=== PATIENT | male | born 1945 | race Caucasian/White ===

== ENCOUNTER → 2018-11-24 08:00 | Outpatient (CLI) | payer MEDICARE, SELFPAY ==
[2018-11-24] VITALS (9 sets, daily range): BP systolic 141–150; BP diastolic 57–86; PULSE 73–79; RESP 16; TEMP 35.7–37; O2SAT 98; BMI 38.2
[2018-11-24] MEDS: Furosemide 20 MG/2 ML VIAL IV (12:51)
== END ==
PROVIDERS: Family Provider Family Medicine; PCP Family Medicine; Referring Provider Nurse Practitioner Adult Health; Visit Provider Nurse Practitioner Adult Health
DX: D64.9 Anemia, unspecified (principal)
CPT/HCPCS: 36430; 86850; 86900; 86920; 86922; J7040; P9016; A4216; J1940

== ENCOUNTER 2019-02-02 22:03 | Emergency (ER) | payer MEDICARE, SELFPAY ==
[2018-11-24 08:26] VITALS: BMI 38.2
[2019-02-02 22:05] VITALS: BP 147/85; PULSE 84; RESP 18; TEMP 37.1; O2SAT 95; BMI 38.5
--- NOTE | 2019-02-02 22:15 | EKG12_ITS ---
Test Reason : WEAKNESS Blood Pressure : / mmHG Vent. Rate : 078 BPM Atrial Rate : 078 BPM P-R Int : 000 ms QRS Dur : 086 ms QT Int : 410 ms P-R-T Axes : 000 -28 012 degrees QTc Int : 467 ms Sinus Rhythm Abnormal ECG Confirmed by REMY DEL VALLE, JENNIFER ([id number]), news video editor ALTON ADLER ([id number]) on 02/04/2019 1:29:38 PM Referred By: MARIZA Confirmed By:BENIGNO ALBERTO MD
--- NOTE | 2019-02-02 22:18 | ED.DCSUM_ITS ---
History of Present Illness Chief Complaint: Weakness Informant: Patient, Family, SNF Onset: Today Context: Sudden Onset Timing: Intermittent Quality: Stuttering, shortness of breath, RUE and bilateral lower extremity edema Location: Respiratory and extremity Current Severity: Mild Maximum Severity: Mild Worsened by: History of heart failure Relieved by: Nothing Associated Symptoms: Stuttering and inability to walk from restroom to his side of the room Narrative: Patient is an elderly male who presents by ambulance for evaluation of right upper extremity, right and left lower extremity edema, stuttering, inability to ambulate from restroom to his bedroom. His roommate called the nurses station. They sent him in for evaluation for stroke. Son states the last time he had stuttering for swelling of his extremities he was diagnosed with congestive heart failure. There is no history of CVA. He denies headache, visual, ocular auditory symptoms. He denies chest pain. He denies orthopnea. He denies nausea, vomiting diarrhea. He denies dysuria, frequency, urgency or hematuria. Prior similar symptoms: Yes - The Recent Illness/Hospitalization: No - Past Medical History (1) History of heart failure Status: Acute (2) Venous insufficiency (chronic) (peripheral) Status: Acute (3) Type 2 diabetes mellitus with diabetic polyneuropathy Status: Chronic (4) Type 2 diabetes mellitus with foot ulcer Status: Resolved Past Medical History - Allergies and Home Meds Allergies/Adverse Reactions: Allergies diclofenac [From Voltaren] Adverse Reaction (Verified 12/02/16 14:59) Nausea/Vom/Diarrhea Macrolide Antibiotics Adverse Reaction (Verified 12/02/16 14:21) Chest tightness Primary Care Physician: Filipe Simmons MD [Primary Care Provider] - Prior records reviewed: Yes Surgical History: noncontributory, appendectomy, herniorrhaphy Lives: Retirement Smoking Status: Former smoker Alcohol: None Drugs: None Review of Systems General: Reports: Malaise. Denies: Chills, Fever, Sweats Eyes: Denies: Visual changes - bilaterally, Blurred Vision - bilaterally, Diplopia ENT: Denies: Bilateral ear pain, Rhinorrhea, Sore throat Cardiovascular: Denies: Chest pain, Palpitations, Heart racing Respiratory: Denies: Dyspnea, Cough, Sputum, Dyspnea on exertion Gastrointestinal: Denies: Abdominal pain, Nausea, Vomiting, Diarrhea, Melena, Hematochezia Genitourinary: Denies: Dysuria, Hematuria, Frequency Musculoskeletal: Reports: Swelling. Denies: Myalgias, Arthralgias, Neck pain, Extremity Pain Skin: Denies: Rash, Wounds Neurological: Denies: Headache, Weakness, Parasthesia Endocrine: Denies: Polyuria, Polydipsia Hematologic: Denies: Easy bruising, Easy bleeding Allergy: Denies: Uticaria, Swelling of the mouth, Swelling of the tongue Physical Exam Vital Signs/Narrative: Vital Signs Temp Pulse Resp BP Pulse Ox 02/02/19 22:05 98.7 F 84 18 147/85 H 95 Inital Vital Signs reviewed: Yes General: Well nourished, Well developed, Obese, No Acute Distress Head: Normocephalic, Atraumatic Eyes: Perrl, EOMI. Negative for: Pale conjunctiva, Scleral icterus ENT: Moist mucous membranes, No rhinorrhea, TM's clear Neck: Supple, Nontender, No lymphadenopathy, No JVD Cardiovascular: Regular rate, Regular rhythm, No murmurs, Normal S1, Normal S2 Respiratory: No distress, Chest nontender, Rales - Mild rales left base Abdomen: Soft, Nontender, Nondistended, Normal bowel sounds Rectal: Deferred Back: Nontender, Normal Inspection. Negative for: CVA tenderness Extremities: Nontender, Edema - 1+ pitting lower extremity. Negative for: No edema Skin: Normal color, No rash Neurological: Alert, Oriented x3, Cranial nerves II-XII grossly intact, Normal Strength, Normal Sensation, Normal DTR Psychological: Normal affect Diagnostic/Tx/Re-eval - EKG Initial EKG Interpretation: Sinus Rhythm - This rhythm with a ventricular rate of 78. CO interval is approximately 150 ms. QRS duration is 86 ms. QT duration is 110 ms. [place] is normal. Decreased anterior force. The EKG is essentially unchanged from December 04, 2010. - Medical Decision Making Patient's NIH is 0. Stuttering is not a symptom of stroke. With history of congestive heart failure rales left base will obtain chest x-ray to evaluate for congestive heart failure. Troponin was obtained to assess for cardiac ischemia as well as EKG. CBC was obtained to assess for anemia and basic medical panel to assess for electrolytes and renal function. Since case was discussed with Dr. Filipe Simmons at 2250. He was informed the patient's history, physical and results of work-up. [facility] Disposition - Plan for ED Patient: Disposition: Home or Assisted Living Diagnosis: Dependent edema, Stuttering, Venous insufficiency (chronic) (peripheral), Localized edema Referrals: Filipe Simmons MD [Primary Care Provider] - As Needed
[2019-02-02 22:24] LABS: Absolute Lymphocyte Count 1.94 X10^3/uL (0.83-4.51); Absolute Neutrophil Count 5.9 X10^3/uL (2.0-7.7); Basophil# 0.04 X10^3/uL; Basophil% 0.4 % (0-1); Eosinophil# 0.34 X10^3/uL; Eosinophils% 3.8 % (0-5); Hematocrit 31.4 % (40-54); Hemoglobin 9.5 g/dL (13.0-16.5); Lymphocyte # 1.94 X10^3/ul (4.0); Lymphocyte % 21.8 % (19-41); Mean Corp Hgb Conc 30.3 g/dL (32-36); Mean Corpuscular Hgb 24.1 pg (27.0-32.0); Mean Corpuscular Volume 79.7 fL (80-94); Mean Platelet Vol. 10.2 fl (6.2-12.0); Monocyte# 0.69 X10^3/uL; Monocyte% 7.7 % (0-10); NRBC Flagged by Analyzer 0 % (0-5); Neutrophil # 5.88 X10^3/uL (2.7-7.7); Neutrophil % 66.1 % (47-70); Platelet Count 227 K/mm3 (150-450); RBC Distribution Width CV 19.1 % (11.6-14.6); RBC Distribution Width SD 55.7 fl (35.1-43.9); Red Blood Count 3.94 M/mm3 (4.6-6.2); White Blood Count 8.9 K/mm3 (4.4-11.0)
--- NOTE | 2019-02-02 22:35 | RAD_ITS ---
STUDY: X-RAY CHEST REASON FOR EXAM: Male, 73 years old. Edema, shortness of breath TECHNIQUE: Frontal and lateral views COMPARISON: None. FINDINGS: The lungs are clear and expanded. There is no demonstrated pleural abnormality. Cardiomegaly. Normal mediastinum and ana. Slightly prominent central pulmonary arteries. Normal visualized aortic arch and descending thoracic aorta. Degenerative changes at the thoracic spine. Normal visualized ribs, clavicles, and shoulders. There is no demonstrated abnormality of the visualized soft tissue structures of the upper abdomen. RAD/Chest PA and Lateral IMPRESSION: Cardiomegaly and slight central pulmonary vascular prominence with Electronically Signed: Иван Cabrera DO at 22:49 EDT Tel [phone], Service support ,
[2019-02-02 22:36] LABS: BUN 20 mg/dL (7-18); Creatinine, Serum 1.28 mg/dL (0.70-1.30); EST Glomerular Filtration Rate 58 mL/min (>60); Estimated Creatinine Clearance 51.49 ml/min; Glucose 172 mg/dL (74-106)
[2019-02-02 22:37] LABS: Anion Gap 6 (5-15); BUN/Creat Ratio 15.6 RATIO (10-20); Calcium,Total 8.8 mg/dL (8.5-10.1); Chloride 102 mmol/L (98-107); Est Glom Filt Rate - Afr Amer 70 mL/min (>60); Potassium 4.2 mmol/L (3.5-5.1); Sodium Level 138 mmol/L (136-145)
--- NOTE | 2019-02-02 22:51 | ED.DCSUM_ITS ---
- ER Visit Summary Date of Service: 02/02/19 Chief Complaint: [] History of Present Illness: The patient is a 73 M [] Physical Examination: [] Test Results: [] Emergency Department Course and Treatment: [] Treatment Plan: [] Disposition: [] Impression: [] This note was generated with [employer] dictation software. It may contain incorrect words, spelling, and punctuation that were not noted in review of the chart prior to signing ED Disposition - Plan for ED Patient: Disposition: Home or Assisted Living Diagnosis: Dependent edema, Stuttering, Venous insufficiency (chronic) (peripheral), Localized edema Instructions: Lymphedema Referrals: Filipe Simmons MD [Primary Care Provider] - As Needed
[2019-02-02 23:11] LABS: BNP,B-Type NATRIURETIC PEPTIDE 66.8 pg/mL (0-100)
[2019-02-02 23:17] VITALS: BP 151/90; PULSE 79; RESP 22; O2SAT 94
--- NOTE | 2019-02-02 23:30 | ED.RN ---
SPOKE WITH LUZ AT [facility], GAVE UPDATED REPORT, PENDING SQU[facility] TRANSFER.
[2019-02-02 23:49] VITALS: BP 140/90
== END 2019-02-02 23:49 | disposition home or self-care (01) ==
PROVIDERS: Emergency Provider Emergency Medicine; Family Provider Family Medicine; PCP Family Medicine
DX: R60.0 Localized edema (principal); R47.82 Fluency disorder in conditions classified elsewhere; I87.2 Venous insufficiency (chronic) (peripheral); I50.9 Heart failure, unspecified; E11.42 Type 2 diabetes mellitus with diabetic polyneuropathy; Z79.4 Long term (current) use of insulin; Z79.84 Long term (current) use of oral hypoglycemic drugs; Z79.899 Other long term (current) drug therapy; Z87.891 Personal history of nicotine dependence
CPT/HCPCS: 71046; 80048; 83880; 84484; 85025; 93005; 99285; A4216

== ENCOUNTER 2019-02-03 12:56 | Inpatient (IN) | payer MEDICARE, MEDICAID, SELFPAY ==
[2019-02-02 22:05] VITALS: BMI 38.5
[2019-02-03] VITALS (12 sets, daily range): BP systolic 131–161; BP diastolic 75–95; PULSE 69–79; RESP 16–26; TEMP 36.3–36.9; O2SAT 93–97; BMI 38.9; BMI 37.7
--- NOTE | 2019-02-03 13:17 | EKG12_ITS ---
Test Reason : Blood Pressure : / mmHG Vent. Rate : 072 BPM Atrial Rate : 072 BPM P-R Int : 188 ms QRS Dur : 090 ms QT Int : 412 ms P-R-T Axes : 076 -22 024 degrees QTc Int : 451 ms Normal sinus rhythm Nonspecific T wave abnormality Abnormal ECG Confirmed by REMY DEL VALLE, JENNIFER ([id number]), editor managing newspaper ALTON ADLER ([id number]) on 02/04/2019 1:24:32 PM Referred By: MAI/LETI Confirmed By:BENIGNO ALBEROT MD
--- NOTE | 2019-02-03 13:17 | CT_ITS ---
STUDY: CT BRAIN WITHOUT CONTRAST REASON FOR EXAM: Male, 73 years old. LEFT SIDE FACIAL DROOP X2 DAYS -- HTN RADIATION DOSAGE (If Supplied By Facility): CTDIvol = ( 44.99 ) mGy, DLP = ( 829.85 ) mGycm TECHNIQUE: Transaxial CT imaging of the brain was performed without administration of intravenous contrast material. Individualized dose optimization techniques were used for this CT. COMPARISON: None. FINDINGS: There is cerebral atrophy with widening of the extra-axial spaces and ventricular dilatation. There are areas of decreased attenuation within the white matter tracts of the supratentorial brain, consistent with microvascular disease changes. There is no intracranial hemorrhage. There are no findings of an acute ischemic infarction. Normal soft tissue structures. Normal visualized paranasal sinuses. CT/Brain/Head without Contrast IMPRESSION: Chronic involutional changes of the brain. Electronically Signed: Janes Nunez MD at 14:37 EDT Tel , Service support ,
--- NOTE | 2019-02-03 13:35 | RAD_ITS ---
STUDY: X-RAY CHEST REASON FOR EXAM: Male, 73 years old. Chest pain. TECHNIQUE: Single AP portable view of the chest. COMPARISON: Comparison is made with prior study dated February 02, 2019. FINDINGS: EKG electrodes are seen. Minimal degree of left basilar atelectasis. There is no demonstrated pleural abnormality. There is mild cardiac enlargement. Normal mediastinum and ana. Normal visualized pulmonary arteries. Normal visualized aortic arch and descending thoracic aorta. There are diffuse degenerative changes of the visualized thoracic spine. Normal visualized ribs, clavicles, and shoulders. There is no demonstrated abnormality of the visualized soft tissue structures of the upper abdomen. RAD/Chest 1 View IMPRESSION: Cardiomegaly. Minimal degree of left basilar atelectasis. Electronically Signed: Enrique David, at 13:54 EDT , Service support ,
[2019-02-03 13:50] LABS: Absolute Lymphocyte Count 1.53 X10^3/uL (0.83-4.51); Absolute Neutrophil Count 5.6 X10^3/uL (2.0-7.7); Basophil# 0.03 X10^3/uL; Basophil% 0.4 % (0-1); Eosinophil# 0.24 X10^3/uL; Hematocrit 32.8 % (40-54); Lymphocyte # 1.53 X10^3/ul (4.0); Mean Corp Hgb Conc 30.5 g/dL (32-36); Mean Corpuscular Hgb 24.2 pg (27.0-32.0); Mean Corpuscular Volume 79.4 fL (80-94); Monocyte# 0.64 X10^3/uL; Monocyte% 7.9 % (0-10); NRBC Flagged by Analyzer 0 % (0-5); Neutrophil # 5.59 X10^3/uL (2.7-7.7); Neutrophil % 69.3 % (47-70); Platelet Count 230 K/mm3 (150-450); RBC Distribution Width CV 19.1 % (11.6-14.6); RBC Distribution Width SD 55.2 fl (35.1-43.9); Red Blood Count 4.13 M/mm3 (4.6-6.2); White Blood Count 8.1 K/mm3 (4.4-11.0)
--- NOTE | 2019-02-03 14:00 | CT_ITS ---
STUDY: CTA HEAD AND NECK WITH CONTRAST REASON FOR EXAM: Male, 73 years old. LEFT SIDE FACIAL DROOP X2 DAYS -- HTN RADIATION DOSAGE (If Supplied By Facility): CTDIvol = ( 30.6 ) mGy, DLP = ( 761.08 ) mGycm TECHNIQUE: CT angiography was performed with a multi-detector CT scanner. Data acquisition was obtained from the skull base through the vertex following intravenous administration of 100CC IV Isovue 370. MIP images were reconstructed from the axial data set. Post-processing of the angiographic images was performed, with multiplanar reformation and 3D reconstruction. Individualized dose optimization techniques were used for this CT. COMPARISON: No relevant priors. FINDINGS: Normal bilateral petrous carotid arteries. There is calcified plaque formation of the right cavernous carotid artery, without a cross-sectional luminal stenosis. There is calcified plaque formation of the left cavernous carotid artery, without a cross-sectional luminal stenosis. Normal right A1 segments of the anterior cerebral artery. Normal left A1 segments of the anterior cerebral artery. Normal intact anterior communicating artery (ACOM). Normal bilateral A2 segments of the anterior cerebral arteries. Normal right M1 and M2 segments of the middle cerebral arteries, with a normal M1 bifurcation. Normal left M1 and M2 segments of the middle cerebral arteries, with a normal M1 bifurcation. Normal bilateral vertebral arteries. Normal basilar artery with a normal basilar bifurcation. The visualized bilateral superior cerebellar (SCA) arteries are normal. Normal bilateral posterior cerebral arteries. AORTIC ARCH: Normal visualized aortic arch. RIGHT CAROTID ARTERIES: There is atherosclerotic tortuous elongation of the right common carotid artery. Normal right common carotid bulb. Normal origin of the right internal carotid (ICA) artery without a hemodynamically significant stenosis. There is atherosclerotic tortuous elongation of the cervical portion of the right internal carotid artery. Normal origin of the right external carotid artery (ECA). LEFT CAROTID ARTERIES: There is atherosclerotic tortuous elongation of the left common carotid artery. Normal left common carotid bulb. Normal origin of the left internal carotid (ICA) artery without a hemodynamically significant stenosis. There is atherosclerotic tortuous elongation of the cervical portion of the left internal carotid artery. Normal origin of the left external carotid artery (ECA). VERTEBRAL ARTERIES: Normal bilateral vertebral arteries. CT/CTA Head AND Neck W/ Contrast IMPRESSION: No occlusion or significant stenosis of the Head and neck vessels Electronically Signed: Janes Nunez MD at 15:20 EDT Tel , Service support ,
[2019-02-03 14:02] LABS: International Normalized Ratio 1.1; Prothrombin Time (Protime)PT. 14.4 SECONDS (11.7-14.9)
[2019-02-03 14:03] LABS: Partial Thromboplast Time 29.6 Seconds (24.1-36.2)
[2019-02-03 14:09] LABS: Anion Gap 8 (5-15); BUN 19 mg/dL (7-18); Chloride 103 mmol/L (98-107); Creatinine, Serum 1.19 mg/dL (0.70-1.30); EST Glomerular Filtration Rate 63 mL/min (>60); Est Glom Filt Rate - Afr Amer 76 mL/min (>60); Estimated Creatinine Clearance 55.38 ml/min; Glucose 123 mg/dL (74-106); Sodium Level 141 mmol/L (136-145)
[2019-02-03] MEDS: 0.9% Normal Saline 1,000 ML 100 ML IV (14:31)
--- NOTE | 2019-02-03 15:28 | ED.DCSUM_ITS ---
- ER Visit Summary Date of Service: 02/03/19 Chief Complaint: [Slurred speech and difficulty ambulating] History of Present Illness: The patient is a 73 M [resents to the emergency department complaint of slurred speech that started around 8:30 PM last evening. Patient apparently had a hard time getting out of the bathroom last evening as well. He was brought to the emergency department and evaluated and was not felt to be a stroke as it was felt patient had more of a stuttering issue. She was seen by primary care today and referred back to the emergency department for left-sided facial droop as well as slurred speech and continued weakness. She describes more of a generalized weakness in his legs. He denies any chest pain or shortness of breath. He denies any abdominal pain or back pain. He denies any headache. Patient does have history of coronary artery disease, diabetes, hypertension, and obstructive sleep apnea.] Physical Examination: [HEENT-PERRLA, EOMI. Cranial nerves II through XII grossly intact. TMs clear. Mucous membranes moist. No adenopathy. Cardiovascular-regular rate and rhythm without murmur or ectopy Lungs-clear to auscultation, chest wall stable without crepitus or subcu emphysema Abdomen-normoactive bowel sounds, soft, nontender, no rebound or rigidity, no peritoneal signs. Neuro exam-she had an NIH stroke scale of 3. Patient had a very subtle left- sided facial droop as well as some mild slurred speech and very subtle weakness of the right leg compared to the right which is unclear if patient has some more chronic symptoms. Patient has chronic pain in his right shoulder and unable to move the right arm as well as the left arm. Extremities-intact ?4, normal range of motion, normal pulses, atraumatic] Test Results: [CT scan of the brain without contrast showed chronic involutional changes otherwise nothing acute. EKG obtained arrival shows sinus rhythm with a ventricular rate of 72 bpm with some nonspecific ST changes. CBC with differential was unremarkable. Chemistries unremarkable. Troponin is less than 0.015. Chest x-ray showed some cardiomegaly and left basilar atelectasis. CTA of the head and neck showed no significant occlusions.] Emergency Department Course and Treatment: [She is not a thrombolytic candidate given low NIH and given prolonged time from symptom onset.] Treatment Plan: [Admit for further work-up of stroke] Disposition: [Admit] Impression: [CVA] This note was generated with [employer] dictation software. It may contain incorrect words, spelling, and punctuation that were not noted in review of the chart prior to signing ED Disposition - Plan for ED Patient: Referrals: Filipe Simmons MD [Primary Care Provider] -
--- NOTE | 2019-02-03 16:40 | HP.PCM_ITS ---
Problem List (1) Congestive heart failure (CHF) Status: Chronic (2) Benign prostatic hyperplasia Status: Chronic (3) Hyperlipidemia Status: Chronic (4) Hypertension Status: Chronic (5) Type 2 diabetes mellitus Status: Chronic (6) Venous insufficiency (chronic) (peripheral) Status: Chronic (7) Type 2 diabetes mellitus with diabetic polyneuropathy Status: Chronic History of Present Illness Date of Admission: 02/03/19 Chief Complaint: Slurred speech, difficulty ambulating. The patient is a 73 year old M with past medical history as mentioned above presented to the emergency room from the long-term because of slurred speech and weakness. Symptoms started last night around 8 PM. Nursing staff at long-term noticed that patient is having difficulty getting the words out and his speech was slurred. He had difficulty ambulating and get out from the bathroom last evening and this morning as well. Last night, he was brought to the emergency department was evaluated and felt that stroke is unlikely diagnosis and patient was sent back to long-term. Today, patient was seen by his PCP at the long-term and he was sent back to ER for slurred speech and questionable left-sided facial droop as well as weakness which is nonfocal. The patient was not able to provide any detailed history. His son who is the power of real estate associate attorney mentioned that he was called last night by the long-term and he was informed that his dad is being transferred to the hospital. Patient had a history of type 2 diabetes mellitus and he has been on glipizide, metformin and sliding scale and his sugar has been under fair control. His hemoglobin A1c was 9.6% 2 years ago. He has history of hypertension and he has been on Coreg, lisinopril and Aldactone and his blood pressure has been stable. He has history of chronic CHF unspecified type with chronic bilateral leg edema and he has been on diuretics, beta-blockers and NAWAF inhibitors. In the emergency department, his NIH stroke scale was 3. He was not a candidate for TPA because symptoms started yesterday evening. His routine blood work was remarkable for hemoglobin of 10 g/dL, otherwise normal. EKG revealed normal sinus rhythm without evidence of acute ischemic changes or cardiac arrhythmias. Troponin was negative. Chest x-ray showed cardiomegaly, no acute findings. CTA of the head and neck showed no significant vascular disease, occlusion or stenosis of the head and neck vessels. He is being admitted for dysarthria/minimal left-sided facial droop for possible TIA versus acute stroke as well as anemia. Past Medical History Past Medical History (Chronic Problems): Chronic Problems Congestive heart failure (CHF) (Chronic) Benign prostatic hyperplasia (Chronic) Hyperlipidemia (Chronic) Hypertension (Chronic) Type 2 diabetes mellitus (Chronic) Delayed wound healing (Chronic) Venous insufficiency (chronic) (peripheral) (Chronic) Type 2 diabetes mellitus with diabetic polyneuropathy (Chronic) Allergies clarithromycin [From Biaxin] Allergy (Verified 02/03/19 13:00) Unknown diclofenac [From Voltaren] Adverse Reaction (Verified 02/03/19 13:00) Nausea/Vom/Diarrhea Macrolide Antibiotics Adverse Reaction (Verified 02/03/19 13:00) Chest tightness Home Medications: Ambulatory Orders Medication Instructions Recorded Albuterol IH (ProAir) [Proair Hfa 1 puff INHALATION Q4H PRN PRN 02/02/19 (SP)Vent Pts] Carvedilol [Coreg] 25 mg PO BID 02/02/19 Furosemide [Lasix] 40 mg PO BID 02/02/19 Gabapentin [Neurontin] 100 mg PO QHS 02/02/19 Glipizide [Glipizide ER] 10 mg PO DAILY 02/02/19 Insulin Lispro [Humalog] See Protocol SQ ACHS 02/02/19 Lisinopril [Zestril] 20 mg PO BID 02/02/19 Melatonin 10 mg PO QHS 02/02/19 Metformin HCl 1,000 mg PO BID 02/02/19 Omeprazole 40 mg PO DAILY 02/02/19 Pravastatin [Pravachol] 80 mg PO QHS 02/02/19 Spironolactone [Aldactone] 25 mg PO DAILY 02/02/19 Tamsulosin HCl [Flomax] 0.4 mg PO QHS 02/02/19 Polyethylene Glycol 3350 [Miralax] 17 gm PO DAILY 02/03/19 Surgical History: appendectomy, herniorrhaphy, total hip arthroplasty, total knee arthroplasty, - - Shoulder repair. Psychiatric History: No pertinent psych hx Lives: Longterm Smoking Status: Former smoker Tobacco Use: Cigars, Pipe Alcohol: None Drugs: None - *Family History Maternal History Items: No pertinent history Paternal History Items: No pertinent history Review of Systems Constitutional: Reports: Weakness, Fatigue. Denies: Anorexia, Chills, Fever Eyes: Denies: Blurred vision, Double vision, Drainage, Vision Change HEENT: Denies: Difficulty Hearing, Ear Pain, Eye Pain, Nasal Congestion, Sore Throat Cardiovascular: Reports: Edema. Denies: Chest Pain, Chest Pressure, Chest Tightness, Light Headedness, Paroxysmal Noc. Dyspnea, Syncope Respiratory: Denies: Cough, Pleuritic Pain, Shortness of Breath, Sputum production, Wheezing Gastrointestinal: Denies: Abdominal Pain, Constipation, Diarrhea, Nausea, Vomiting Genitourinary: Denies: Dysuria, Frequency, Hematuria Musculoskeletal: Denies: Arm Pain, Back Pain, Foot Pain Skin: Denies: Dryness, Rash Neurological: Reports: Change in Speech, Slurred speech. Denies: Balance problems, Blurred vision, Confusion, Focal weakness, Headaches, Numbness Psychiatric: Denies: Anxiety, Depression Endocrine: Denies: Change in Body Habitus, Polydipsia, Polyuria VTE Information - Inpt Only VTE Present on Admission: No VTE Mechan Device Prophylaxis: None VTE Pharm Prophylaxis ordered?: Yes - Physical Exam General: Alert, Oriented x3, Cooperative, No apparent distress HEENT: Atraumatic, PERRLA, EOMI, Normocephalic Oral: Moist Mucosa, No Gingival or Mucosal Lesions/ Ulcerations Neck: Supple, No JVD, Negative Carotid Bruits, Trachea Midline, Thyroid Normal Size and Texture Lungs: Clear to auscultation, Normal air movement, No rhonchi, No wheeze, No rales, Diminished Cardiovascular: Regular rate, Regular Rhythm, Normal S1, Normal S2, No murmurs, PMI Normal Abdomen: Bowel Sounds Present, Soft, Non Tender, Non-Distended, No Hepato- splenomegaly, Obese Extremities: No clubbing, No cyanosis, Edema - + Edema. Skin: No rashes, No breakdown Lymphatic: No Cervical, Supraclavicular, or Inguinal Adenopathy Neurological: Facial Droop, Slurred Speech, - - Minimal septal left-sided facial droop, dysarthria, global weakness. No focal deficit. Psych/Mental Status: Normal Affect, Appropriate, Alert and oriented to time, place, person, mood and affect Vital Signs Temp Pulse Resp BP Pulse Ox 98.5 F 76 18 150/77 H 96 02/03/19 12:57 02/03/19 14:30 02/03/19 14:30 02/03/19 14:30 02/03/19 14:30 Oxygen Delivery Method Room Air Weight: 271 lb 9.752 oz Body Mass Index (BMI) 38.9 Finger Stick Blood Glucose 174 Laboratory Tests Past 24 Hrs 02/03/19 02/03/19 02/03/19 13:40 13:40 13:40 WBC 8.1 RBC 4.13 L Hgb 10.0 L Hct 32.8 L MCV 79.4 L MCH 24.2 L MCHC 30.5 L RDW Std Deviation 55.2 H RDW Coeff of Kael 19.1 H Plt Count 230 MPV 10.0 Immature Gran % (Auto) 0.400 Neut % (Auto) 69.3 Lymph % (Auto) 19.0 [place] % (Auto) 7.9 Eos % (Auto) 3.0 Baso % (Auto) 0.4 Absolute Neuts (auto) 5.6 Absolute Lymphs (auto) 1.53 Nucleated RBC % 0 PT 14.4 INR 1.1 APTT 29.6 Sodium 141 Potassium 4.0 Chloride 103 Carbon Dioxide 30.0 Anion Gap 8 BUN 19 H Creatinine 1.19 Estim Creat Clear Calc 55.38 Est GFR (MDRD) Af Amer 76 Est GFR (MDRD) Non-Af 63 BUN/Creatinine Ratio 16.0 Glucose 123 H Calcium 9.0 Troponin I < 0.015 Clinical Impression(s) from Imaging Studies Brain CT 02/03/19 13:17 IMPRESSION: Chronic involutional changes of the brain. Electronically Signed: Janes Nunez MD at 14:37 EDT Tel , Service support , Chest X-Ray 02/03/19 13:35 IMPRESSION: Cardiomegaly. Minimal degree of left basilar atelectasis. Electronically Signed: Enrique David, at 13:54 EDT , Service support , Head/Neck CTA 02/03/19 14:00 IMPRESSION: No occlusion or significant stenosis of the Head and neck vessels Electronically Signed: Janes Nunez MD at 15:20 EDT Tel , Service support , Assessment/Plan This is a 73 years old male patient presented to the ED from the long-term because of slurred speech, weakness and minimal left-sided facial droop and he is being admitted for evaluation for possible stroke versus TIA and also found to have anemia. #1 dysarthria/minimal left facial droop/global weakness: Concern for stroke versus TIA. CTA head and neck was unremarkable as above. Chest x-ray showed no acute findings. EKG revealed normal sinus rhythm, no acute ischemic changes or cardiac arrhythmias. Plan: Admit to PCU for observation, NIH stroke scale, start baby aspirin, continue statins, MRI brain, 2D echocardiogram, neurology consult, IV fluids, repeat CBC and BMP tomorrow morning, PT OT evaluation and treatment. #2 anemia: Unknown if it is acute or chronic. Hemoglobin is 10 g/dL, it is microcytic anemia. No evidence of active bleeding and patient denies any bleeding from body orifices. No indication for blood transfusion. Plan: Serum iron, TIBC, ferritin, stool for occult blood. #3 type 2 diabetes mellitus/peripheral neuropathy: ADA diet, Accu-Cheks, insulin sliding scale, continue glipizide, hold metformin, check A1c. #4 hypertension: Blood pressure stable, continue Coreg, lisinopril and Aldactone. #5 chronic CHF: Clinically stable, compensated. Continue on Coreg, lisinopril, Aldactone, hold Lasix for now. #6 hyperlipidemia: Continue statins. #7 benign prostatic hypertrophy: Continue Flomax. #8 DVT prophylaxis: Subcu Lovenox. This note was generated with [employer] dictation software. It may contain incorrect words, spelling, and punctuation that were not noted in checking the note before signing. Code Visit OBSV E&M: 22458 Initial observation care L3
--- NOTE | 2019-02-03 17:27 | MRI_ITS ---
We are attempting to reach an attending provider to discuss findings. An addendum with communication details will be sent when the communication is complete. HISTORY: Facial Droop WEAKNESS TECHNIQUE: Routine brain MR protocol was performed without gadolinium. COMPARISON: CT scan of the brain from about 5 hours earlier FINDINGS: # of images incl. paperwork: 284 3 tiny 3 mm foci of acute ischemia are present within the medulla at the level of the fourth ventricle, below the yuan. Flow is present within major central intracranial arteries. Brain is atrophic. Periventricular deep and subcortical white matter disease is present. Mucoperiosteal thickening within the paranasal sinuses including the ethmoid air cells and frontal sinuses. I appreciate no masses or herniations. No acute intracranial hemorrhage is perceived. No additional acute ischemia is identified. MRI/Brain without Contrast IMPRESSION: 3 tiny foci of acute ischemia each measuring about 3 mm with in the brainstem just inferior to the yuan at the level of the fourth ventricle. These areas of ischemia or are within the region for the facial motor nucleus, and abducens nerve, and therefore could be affecting the facial paralysis. at 2126 Reported and signed by: Mariano Weber MD Electronically Signed: Mariano Weber MD at 21:25 EDT Tel , Service support ,
--- NOTE | 2019-02-03 17:27 | ECHOD_ITS ---
Reason For Study: TIA/CVA Procedure This was a 2D Doppler, Color Flow transthoracic echocardiogram. The study was technically limited. The exam was of fair technical quality due to body habitus. Exam performed portable in patient room. Left Ventricle Normal LV size. Concentric left ventricular hypertrophy. The estimated ejection fraction is 55 %. Stage 2 diastolic dysfunction. No regional wall motion abnormalities noted. Right Ventricle Normal RV size. Normal systolic function. Atria Normal left atrium. Normal right atrium. No doppler evidence for ASD. Mitral Valve There is no mitral valve stenosis. No mitral valve insufficiency. Tricuspid Valve There is no tricuspid stenosis. Trivial tricuspid valve insufficiency. Pulmonary artery systolic pressure is 40-45 mmHg. Aortic Valve Mild diffuse aortic valve thickening. Mild aortic stenosis. No aortic valve insufficiency. Pulmonic Valve There is no pulmonic valvular stenosis. No pulmonic valve insufficiency. Great Vessels Normal aortic root. Pericardium/Pleural No pericardial effusion. Medication Bubble study deferred due to suboptimal image quality. MMode/2D Measurements & Calculations LVIDd: 5.6 cm IVSd: 1.2 cm LVOT diam: 2.4 cm LVIDs: 4.8 cm LVPWd: 1.3 cm RVDd: 4.5 cm FS: 13.5 % LVOT area: 4.5 cm2 Ao root diam: 4.1 cm LAV(MOD-bp): 105.6 ml LVAd ap4: 47.7 cm2 LAV(MOD-bp) Indexed: 45.1 ml/m2 EDV(MOD-sp4): 190.3 ml LAV(MOD-sp2): 111.8 ml EDV(sp4-el): 203.8 ml LAV(MOD-sp4): 78.0 ml LVAs ap4: 32.8 cm2 ESV(MOD-sp4): 113.0 ml ESV(sp4-el): 114.7 ml EF(MOD-sp4): 40.6 % EF(sp4-el): 43.7 % SV(MOD-sp4): 77.3 ml SV(sp4-el): 89.1 ml LA A4 area: 22.8 cm2 LA dimension(2D): 4.6 cm RA A4 area: 19.2 cm2 Time Measurements MV dec time: 0.21 sec Doppler Measurements & Calculations MV E max paulino: 95.0 cm/sec Lat Peak E' Paulino: 3.0 cm/sec Med Peak E' Paulino: 3.3 cm/sec MV A max paulino: 122.0 cm/sec E/E' lat: 31.3 E/E' med: 28.9 MV E/A: 0.78 Ao V2 max: 200.7 cm/sec LV V1 max: 113.8 cm/sec SV(LVOT): 110.5 ml Ao max P.1 mmHg LV V1 max P.2 mmHg Ao V2 mean: 144.0 cm/sec LV V1 mean P.0 mmHg Ao mean P.1 mmHg LV V1 mean: 83.0 cm/sec Ao V2 VTI: 38.9 cm LV V1 VTI: 24.3 cm JOHNNIE(I,D): 2.8 cm2 JOHNNIE(V,D): 2.6 cm2 PA V2 max: 92.3 cm/sec PI end-d paulino: 94.6 cm/sec TR max paulino: 307.0 cm/sec TR max P.7 mmHg Interpretation Summary The estimated ejection fraction is 55 %. Stage 2 diastolic dysfunction. Trivial tricuspid valve insufficiency. Pulmonary artery systolic pressure is 40-45 mmHg. Mild aortic stenosis. Ordering Physician: Brennon Gutierrez Referring Physician: DANY ROCHA Performed By: Brandi Richmond, REBECCA, RVT
[2019-02-03 18:01] LABS: Bedside Glucose 110 mg/dL (70-110)
--- NOTE | 2019-02-03 18:09 | CASEMGMT ---
RN CM Assessment Introduced role of RN CM to patient and patient's two sons Sintia at bedside.? Patient is alert, oriented and able?to participate in RN CM Assessment. Patient gael answered some questions but appeared not sure about some information such as PCP.?Care providers, pharmacy, and demographics verified. Presentation: Sent from [facility] for Slurred speech last evening and was seen in ER- felt it was not a stroke. Seen by PCP today and referred back to ER for Lt sided Facial droop, slurred speech and continued weakness. Admit Dx: Slurred Speech, Weakness, ?? TIA Vs Stroke Re-Admit: No Barriers/Issues: Vel mayo at bedside, patient has been at [facility] since November 18 and has not seen PCP or gone to any Drs appointments since. States that the provider has seen patient at [facility]. Patient states that he lives at [facility] permanently. Vel mayo JALEN application is currently in process. PCP: Filipe Looney- Per son, does not think patient has seen PCP since before November 18. Specialists: None Preferred Pharmacy: At [facility] Insurance: [employer] [facility] PPO Rx Benefit:?Yes LNOK: Blayne Oneill LW/HPOA: Not on file with [facility], States Has HPOA- Blayne Oneill Living Arrangements:?Lives at [facility], Penitentiary?. ADL?s: Ambulates with walker, Cane, and uses WC. Independent with ADLs, but has needed assistance the past day. Facility assists with some bathing, meds and meals. Transportation: [facility] or [facility] Transport DME: WC, Walker, Cane, CPAP- not using, O2 tank- states next to patient bed for prn use. SNF: [facility]-current Goal: Return back to [facility], denies any concerns, issues, or questions with DC planning at this time. Aware CM/SW remain available for any emerging needs. DC PLAN: SNF [facility]. SOREN Costa
[2019-02-03 18:12] LABS: Ferritin 25 ng/mL (26-388); Iron 39 ug/dL (65-175); Iron Binding Capacity,Total 362 ug/dL (250-450); PERCENT IRON SATURATION 10.8 % (15.0-55.0); Thyroid Stim Hormone (TSH) 1.38 uIU/mL (0.358-3.74)
[2019-02-03 18:21] LABS: Hemoglobin A1c 7.8 % (4.2-6.3)
--- NOTE | 2019-02-03 18:37 | NURSING ---
Spoke with RN at [facility] at this time and updated on patients condition
[2019-02-03] MEDS: 0.9% Normal Saline 1,000 ML 75 ML IV (19:58)
[2019-02-03 20:06] LABS: Bacteria 0 SEEN /hpf (None Seen); Mucous, Urine 0 SEEN /hpf (<or=2+); Red Blood Cells-Urine 0 SEEN /hpf (0-5); Squamous Epithelial Cells - UA 0 SEEN /hpf (0-5)
[2019-02-03 20:15] LABS: Color, Urine Yellow (Yellow); Glucose, Dipstick Normal (Normal); Ketone-Dipstick Negative (Negative); Leukocyte Esterase-Dipstick Negative /ul (Negative); Nitrite-Dipstick Negative (Negative); Occult Blood-Urine Negative /ul (Negative); Protein-Dipstick Negative (Negative); Specific Gravity, Urine 1.005 (1.002-1.030); Urine Bilirubin Dipstick Negative (Negative); Urine Clarity Clear (Clear); Urine Urobilinogen Normal (Normal)
[2019-02-03 20:21] LABS: White Blood Cells 0-5 SEEN /hpf (0-5)
[2019-02-03] MEDS: MELATONIN 10 MG TABLET PO (23:19)
[2019-02-03] MEDS: Tamsulosin HCl 0.4 MG Capsule PO (23:20)
[2019-02-03] MEDS: Carvedilol 25 MG Tablet PO (23:20)
[2019-02-03] MEDS: Gabapentin 100 MG Capsule PO (23:21)
[2019-02-03] MEDS: Pravastatin 80 MG Tablet PO (23:21)
[2019-02-03] MEDS: Lisinopril 20 MG Tablet PO (23:21)
[2019-02-03 23:41] LABS: Bedside Glucose 141 mg/dL (70-110)
[2019-02-04] VITALS (12 sets, daily range): BP systolic 129–154; BP diastolic 60–86; PULSE 75–89; RESP 15–18; TEMP 36.7–37.1; O2SAT 93–95; BMI 37.7
[2019-02-04 06:21] LABS: Absolute Lymphocyte Count 1.47 X10^3/uL (0.83-4.51); Absolute Neutrophil Count 5.9 X10^3/uL (2.0-7.7); Basophil# 0.02 X10^3/uL; Basophil% 0.2 % (0-1); Eosinophil# 0.22 X10^3/uL; Eosinophils% 2.6 % (0-5); Hemoglobin 9.6 g/dL (13.0-16.5); Lymphocyte # 1.47 X10^3/ul (4.0); Lymphocyte % 17.7 % (19-41); Mean Corpuscular Hgb 24.4 pg (27.0-32.0); Mean Corpuscular Volume 78.7 fL (80-94); Mean Platelet Vol. 10.5 fl (6.2-12.0); Monocyte# 0.66 X10^3/uL; Monocyte% 7.9 % (0-10); NRBC Flagged by Analyzer 0 % (0-5); Neutrophil # 5.91 X10^3/uL (2.7-7.7); Neutrophil % 71.2 % (47-70); Platelet Count 231 K/mm3 (150-450); RBC Distribution Width CV 18.7 % (11.6-14.6); RBC Distribution Width SD 53.9 fl (35.1-43.9); Red Blood Count 3.94 M/mm3 (4.6-6.2); White Blood Count 8.3 K/mm3 (4.4-11.0)
[2019-02-04 06:47] LABS: Anion Gap 6 (5-15); BUN 16 mg/dL (7-18); BUN/Creat Ratio 14.4 RATIO (10-20); Calcium,Total 8.4 mg/dL (8.5-10.1); Chloride 105 mmol/L (98-107); Cholesterol 132 mg/dL (200); Creatinine, Serum 1.11 mg/dL (0.70-1.30); EST Glomerular Filtration Rate 69 mL/min (>60); Est Glom Filt Rate - Afr Amer 83 mL/min (>60); Estimated Creatinine Clearance 59.37 ml/min; Glucose 171 mg/dL (74-106); High Density Lipoprotein 28 mg/dL; Potassium 3.8 mmol/L (3.5-5.1); Sodium Level 140 mmol/L (136-145); Triglycerides 186 mg/dL; Very Low Density Lipoprotein 37 mg/dL (5-40)
--- NOTE | 2019-02-04 08:05 | PN_ITS ---
Subjective: Chief complaint: Follow-up after admission for dysarthria and facial droop, found to have acute stroke and also admitted for anemia. Patient seen and examined. No acute events overnight. This morning, he denies any complaints. His speech still slightly dysarthric but understandable. He denied chest pain or shortness of breath. Denied focal arm or leg weakness. Denied numbness or tingling. Blood pressure slightly elevated, other vital signs are stable. - Physical Exam General: Alert, Oriented x3, Cooperative, No apparent distress HEENT: Atraumatic, PERRLA, EOMI, Normocephalic Oral: Moist Mucosa, No Gingival or Mucosal Lesions/ Ulcerations Neck: Supple, No JVD, Trachea Midline, Thyroid Normal Size and Texture Lungs: Clear to auscultation, Normal air movement, No rhonchi, No wheeze, No rales, Diminished Cardiovascular: Regular rate, Regular Rhythm, Normal S1, Normal S2, PMI Normal Abdomen: Bowel Sounds Present, Soft, Non Tender, Non-Distended, No Hepato- splenomegaly, Obese Extremities: No clubbing, No cyanosis, Edema - + Edema. Skin: No rashes, No breakdown Lymphatic: No Cervical, Supraclavicular, or Inguinal Adenopathy Neurological: Cranial nerves II-XII grossly intact, Motor Exam 5/5 strength throughout, - - Except subtle left facial droop. Minimal dysarthria. Psych/Mental Status: Normal Affect, Appropriate, Alert and oriented to time, place, person, mood and affect Vital Signs Temp Pulse Resp BP Pulse Ox 98.1 F 83 16 154/86 H 93 02/04/19 04:37 02/04/19 07:29 02/04/19 04:37 02/04/19 04:37 02/04/19 04:37 Oxygen Delivery Method Room Air Weight: 262 lb 12.656 oz Body Mass Index (BMI) 37.7 Finger Stick Blood Glucose 174 Intake and Output for Last 24 Hours 02/02/19 02/03/19 02/04/19 23:59 23:59 23:59 Intake Total 741.25 / 741.25 817.5 / 817.5 Output Total 700 / 700 Balance 41.25 / 41.25 817.5 / 817.5 Laboratory Tests Past 24 Hrs 02/03/19 02/03/19 02/03/19 13:40 13:40 13:40 WBC 8.1 RBC 4.13 L Hgb 10.0 L Hct 32.8 L MCV 79.4 L MCH 24.2 L MCHC 30.5 L RDW Std Deviation 55.2 H RDW Coeff of Kael 19.1 H Plt Count 230 MPV 10.0 Immature Gran % (Auto) 0.400 Neut % (Auto) 69.3 Lymph % (Auto) 19.0 [place] % (Auto) 7.9 Eos % (Auto) 3.0 Baso % (Auto) 0.4 Absolute Neuts (auto) 5.6 Absolute Lymphs (auto) 1.53 Nucleated RBC % 0 PT 14.4 INR 1.1 APTT 29.6 Sodium 141 Potassium 4.0 Chloride 103 Carbon Dioxide 30.0 Anion Gap 8 BUN 19 H Creatinine 1.19 Estim Creat Clear Calc 55.38 Est GFR (MDRD) Af Amer 76 Est GFR (MDRD) Non-Af 63 BUN/Creatinine Ratio 16.0 Glucose 123 H Hemoglobin A1c Calcium 9.0 Iron TIBC Iron Saturation Ferritin Troponin I < 0.015 Triglycerides Cholesterol LDL Cholesterol VLDL Cholesterol HDL Cholesterol TSH Urine Color Urine Clarity Urine pH Ur Specific [place] Urine Protein Urine Glucose (UA) Urine Ketones Urine Occult Blood Urine Nitrite Urine Bilirubin Urine Urobilinogen Ur Leukocyte Esterase Urine RBC Urine WBC Ur Squamous Epith Cells Urine Bacteria Urine Mucus 02/03/19 02/03/19 02/03/19 13:40 13:40 15:18 WBC RBC Hgb Hct MCV MCH MCHC RDW Std Deviation RDW Coeff of Kael Plt Count MPV Immature Gran % (Auto) Neut % (Auto) Lymph % (Auto) [place] % (Auto) Eos % (Auto) Baso % (Auto) Absolute Neuts (auto) Absolute Lymphs (auto) Nucleated RBC % PT INR APTT Sodium Potassium Chloride Carbon Dioxide Anion Gap BUN Creatinine Estim Creat Clear Calc Est GFR (MDRD) Af Amer Est GFR (MDRD) Non-Af BUN/Creatinine Ratio Glucose Hemoglobin A1c 7.8 H Calcium Iron 39 L TIBC 362 Iron Saturation 10.8 L Ferritin 25 L Troponin I Triglycerides Cholesterol LDL Cholesterol VLDL Cholesterol HDL Cholesterol TSH 1.38 Urine Color Yellow Urine Clarity Clear Urine pH 7.0 Ur Specific [place] 1.005 Urine Protein Negative Urine Glucose (UA) Normal Urine Ketones Negative Urine Occult Blood Negative Urine Nitrite Negative Urine Bilirubin Negative Urine Urobilinogen Normal Ur Leukocyte Esterase Negative Urine RBC 0 SEEN Urine WBC 0-5 SEEN Ur Squamous Epith Cells 0 SEEN Urine Bacteria 0 SEEN Urine Mucus 0 SEEN 02/04/19 02/04/19 06:05 06:05 WBC 8.3 RBC 3.94 L Hgb 9.6 L Hct 31.0 L MCV 78.7 L MCH 24.4 L MCHC 31.0 L RDW Std Deviation 53.9 H RDW Coeff of Kael 18.7 H Plt Count 231 MPV 10.5 Immature Gran % (Auto) 0.400 Neut % (Auto) 71.2 H Lymph % (Auto) 17.7 L [place] % (Auto) 7.9 Eos % (Auto) 2.6 Baso % (Auto) 0.2 Absolute Neuts (auto) 5.9 Absolute Lymphs (auto) 1.47 Nucleated RBC % 0 PT INR APTT Sodium 140 Potassium 3.8 Chloride 105 Carbon Dioxide 29.0 Anion Gap 6 BUN 16 Creatinine 1.11 Estim Creat Clear Calc 59.37 Est GFR (MDRD) Af Amer 83 Est GFR (MDRD) Non-Af 69 BUN/Creatinine Ratio 14.4 Glucose 171 H Hemoglobin A1c Calcium 8.4 L Iron TIBC Iron Saturation Ferritin Troponin I Triglycerides 186 Cholesterol 132 LDL Cholesterol 67 VLDL Cholesterol 37 HDL Cholesterol 28 L TSH Urine Color Urine Clarity Urine pH Ur Specific [place] Urine Protein Urine Glucose (UA) Urine Ketones Urine Occult Blood Urine Nitrite Urine Bilirubin Urine Urobilinogen Ur Leukocyte Esterase Urine RBC Urine WBC Ur Squamous Epith Cells Urine Bacteria Urine Mucus POC Glucose 02/03/19 02/03/19 23:37 17:55 POC Glucose 141 H 110 Clinical Impression(s) from Imaging Studies Brain CT 02/03/19 13:17 IMPRESSION: Chronic involutional changes of the brain. Electronically Signed: Janes Nunez MD at 14:37 EDT Tel , Service support , Chest X-Ray 02/03/19 13:35 IMPRESSION: Cardiomegaly. Minimal degree of left basilar atelectasis. Electronically Signed: Enrique David, at 13:54 EDT , Service support , Head/Neck CTA 02/03/19 14:00 IMPRESSION: No occlusion or significant stenosis of the Head and neck vessels Electronically Signed: Janes Nunez MD at 15:20 EDT Tel , Service support , Brain MRI 02/03/19 17:27 IMPRESSION: 3 tiny foci of acute ischemia each measuring about 3 mm with in the brainstem just inferior to the yuan at the level of the fourth ventricle. These areas of ischemia or are within the region for the facial motor nucleus, and abducens nerve, and therefore could be affecting the facial paralysis. at 2126 Reported and signed by: Mariano Weber MD Electronically Signed: Mariano Weber MD at 21:25 EDT Tel , Service support , ADDENDUM: 02/03/19 2144 IMPRESSION: 3 tiny foci of acute ischemia each measuring about 3 mm with in the brainstem just inferior to the yuan at the level of the fourth ventricle. These areas of ischemia or are within the region for the facial motor nucleus, and abducens nerve, and therefore could be affecting the facial paralysis. at 2126 Reported and signed by: Mariano Weber MD N.B. : The above information has been verbally conveyed by Mariano Weber MD to Raymond Nowak MD, on 02/03/2019 21:37:13 (ET). Electronically Signed: Mariano Weber MD at 21:25 EDT Tel , Service support , Medical Necessity - Tobacco Use Smoking Status: Former smoker Tobacco Use: Cigars, Pipe Assessment/Plan This is a 73 years old male patient presented to the ED from the [facility] because of slurred speech, weakness and minimal left-sided facial droop and he was found to have 3 small acute ischemic infarct within the medulla. #1 Multiple small acute ischemic infarcts: It is in the middle at the level of the fourth ventricle below yuan. Possible embolic infarcts. Apart from minimal dysarthria, no major focal deficit. Patient is on aspirin and high intensity statins. Blood pressure slightly elevated, other vital signs are stable. He remains in sinus rhythm, no cardiac arrhythmias on telemetry. CTA head and neck was unremarkable as above. Chest x-ray showed no acute findings. EKG revealed normal sinus rhythm, no acute ischemic changes or cardiac arrhythmias. 2D echocardiogram ordered. Awaiting neurology recommendations. Plan for PT OT, patient will need placement to [facility]. #2 Iron deficiency anemia: According to the son, patient received blood transfusion back in November, at the [facility]. Patient denied any bleeding from body orifices, denied black stools or hematochezia. Serum iron, ferritin and iron saturation are low. Plan to start iron supplement, stool for occult blood. Patient may need upper EGD and colonoscopy in the future as outpatient for anemia work-up. #3 type 2 diabetes mellitus/peripheral neuropathy: Blood sugar stable, hemoglobin A1c 7.8. Continue ADA diet, Accu-Cheks, insulin sliding scale, continue glipizide, resume metformin. #4 hypertension: Blood pressure slightly elevated, continue Coreg, lisinopril and Aldactone. Will allow permissive hypertension. #5 chronic CHF: Clinically stable, compensated. Continue on Coreg, lisinopril, Aldactone, DC IV fluids, resume Lasix. #6 hyperlipidemia: Continue statins. #7 benign prostatic hypertrophy: Continue Flomax. #8 DVT prophylaxis: Subcu Lovenox. This note was generated with [email or web address] dictation software. It may contain incorrect words, spelling, and punctuation that were not noted in checking the note before signing. Code Visit Inpatient E&M: 42764 Subs Hosp L2
[2019-02-04] MEDS: Polyethylene Glycol 3350 17 GM PACKET PO (08:36)
[2019-02-04] MEDS: Spironolactone 25 MG Tablet PO (08:36)
[2019-02-04] MEDS: Aspirin 81 MG TAB.CHEW PO (08:36)
[2019-02-04] MEDS: Enoxaparin 40 MG/0.4 ML Syringe SC (08:36)
[2019-02-04] MEDS: Carvedilol 25 MG Tablet PO ×2 (08:36→21:44)
[2019-02-04] MEDS: Pantoprazole Sodium 40 MG Tablet PO (08:36)
[2019-02-04] MEDS: Lisinopril 20 MG Tablet PO ×2 (08:37→21:44)
[2019-02-04] MEDS: Furosemide 40 MG Tablet PO ×2 (08:38→18:28)
[2019-02-04 10:10] LABS: Bedside Glucose 161 mg/dL (70-110)
--- NOTE | 2019-02-04 10:46 | PCM.CONS.GEN ---
Reason for Consult Date of Consultation: 02/04/19 Reason for Consultation: stroke History of Present Illness: The patient is a 73 year old M reports difficulty walking and speaking as described below. lives at [facility]. per admit note:The patient is a 73 year old M with past medical history as mentioned above presented to the emergency room from the [facility] because of slurred speech and weakness. Symptoms started last night around 8 PM. Nursing staff at [facility] noticed that patient is having difficulty getting the words out and his speech was slurred. He had difficulty ambulating and get out from the bathroom last evening and this morning as well. Last night, he was brought to the emergency department was evaluated and felt that stroke is unlikely diagnosis and patient was sent back to [facility]-way. Today, patient was seen by his PCP at the [facility]-way and he was sent back to ER for slurred speech and questionable left-sided facial droop as well as weakness which is nonfocal. The patient was not able to provide any detailed history. His son who is the power of commercial attorney mentioned that he was called last night by the [facility]-way and he was informed that his dad is being transferred to the hospital. Patient had a history of type 2 diabetes mellitus and he has been on glipizide, metformin and sliding scale and his sugar has been under fair control. His hemoglobin A1c was 9.6% 2 years ago. He has history of hypertension and he has been on Coreg, lisinopril and Aldactone and his blood pressure has been stable. He has history of chronic CHF unspecified type with chronic bilateral leg edema and he has been on diuretics, beta-blockers and NAWAF inhibitors. In the emergency department, his NIH stroke scale was 3. He was not a candidate for TPA because symptoms started yesterday evening. His routine blood work was remarkable for hemoglobin of 10 g/dL, otherwise normal. EKG revealed normal sinus rhythm without evidence of acute ischemic changes or cardiac arrhythmias. Troponin was negative. Chest x-ray showed cardiomegaly, no acute findings. CTA of the head and neck showed no significant vascular disease, occlusion or stenosis of the head and neck vessels. He is being admitted for dysarthria/minimal left-sided facial droop for possible TIA versus acute stroke as well as anemia. Past Medical History Past Medical History (Chronic Problems): Chronic Problems Congestive heart failure (CHF) (Chronic) Benign prostatic hyperplasia (Chronic) Hyperlipidemia (Chronic) Hypertension (Chronic) Type 2 diabetes mellitus (Chronic) Delayed wound healing (Chronic) Venous insufficiency (chronic) (peripheral) (Chronic) Type 2 diabetes mellitus with diabetic polyneuropathy (Chronic) Allergies clarithromycin [From Biaxin] Allergy (Verified 02/03/19 13:00) Unknown diclofenac [From Voltaren] Adverse Reaction (Verified 02/03/19 13:00) Nausea/Vom/Diarrhea Macrolide Antibiotics Adverse Reaction (Verified 02/03/19 13:00) Chest tightness Home Medications: Ambulatory Orders Medication Instructions Recorded Albuterol IH (ProAir) [Proair Hfa 1 puff INHALATION Q4H PRN PRN 02/02/19 (SP)Vent Pts] Carvedilol [Coreg] 25 mg PO BID 02/02/19 Furosemide [Lasix] 40 mg PO BID 02/02/19 Gabapentin [Neurontin] 100 mg PO QHS 02/02/19 Glipizide [Glipizide ER] 10 mg PO DAILY 02/02/19 Insulin Lispro [Humalog] See Protocol SQ ACHS 02/02/19 Lisinopril [Zestril] 20 mg PO BID 02/02/19 Melatonin 10 mg PO QHS 02/02/19 Metformin HCl 1,000 mg PO BID 02/02/19 Omeprazole 40 mg PO DAILY 02/02/19 Pravastatin [Pravachol] 80 mg PO QHS 02/02/19 Spironolactone [Aldactone] 25 mg PO DAILY 02/02/19 Tamsulosin HCl [Flomax] 0.4 mg PO QHS 02/02/19 Polyethylene Glycol 3350 [Miralax] 17 gm PO DAILY 02/03/19 Surgical History: appendectomy, herniorrhaphy, total hip arthroplasty, total knee arthroplasty, - - Shoulder repair. Psychiatric History: No pertinent psych hx Lives: [facility]Term Smoking Status: Former smoker Tobacco Use: Cigars, Pipe Alcohol: None Drugs: None - *Family History Maternal History Items: No pertinent history Paternal History Items: No pertinent history Review of Systems Neurological: Reports: Change in Speech, Focal weakness - Physical Exam General: Alert, Oriented x3 Neurological: Facial Droop, - - left facial droop, dysarthria and bilateral ue discoord Vital Signs Temp Pulse Resp BP Pulse Ox 37.0 C 75 17 148/78 H 95 02/04/19 08:27 02/04/19 08:27 02/04/19 08:27 02/04/19 08:27 02/04/19 08:27 Oxygen Delivery Method Room Air Weight: 119.2 kg Body Mass Index (BMI) 37.7 Finger Stick Blood Glucose 174 Intake and Output for Last 24 Hours 02/02/19 02/03/19 02/04/19 23:59 23:59 23:59 Intake Total 741.25 / 741.25 817.5 / 817.5 Output Total 700 / 700 Balance 41.25 / 41.25 817.5 / 817.5 Laboratory Tests Past 24 Hrs 02/03/19 02/03/19 02/03/19 13:40 13:40 13:40 WBC 8.1 RBC 4.13 L Hgb 10.0 L Hct 32.8 L MCV 79.4 L MCH 24.2 L MCHC 30.5 L RDW Std Deviation 55.2 H RDW Coeff of Kael 19.1 H Plt Count 230 MPV 10.0 Immature Gran % (Auto) 0.400 Neut % (Auto) 69.3 Lymph % (Auto) 19.0 [place] % (Auto) 7.9 Eos % (Auto) 3.0 Baso % (Auto) 0.4 Absolute Neuts (auto) 5.6 Absolute Lymphs (auto) 1.53 Nucleated RBC % 0 PT 14.4 INR 1.1 APTT 29.6 Sodium 141 Potassium 4.0 Chloride 103 Carbon Dioxide 30.0 Anion Gap 8 BUN 19 H Creatinine 1.19 Estim Creat Clear Calc 55.38 Est GFR (MDRD) Af Amer 76 Est GFR (MDRD) Non-Af 63 BUN/Creatinine Ratio 16.0 Glucose 123 H Hemoglobin A1c Calcium 9.0 Iron TIBC Iron Saturation Ferritin Troponin I < 0.015 Triglycerides Cholesterol LDL Cholesterol VLDL Cholesterol HDL Cholesterol TSH Urine Color Urine Clarity Urine pH Ur Specific [place] Urine Protein Urine Glucose (UA) Urine Ketones Urine Occult Blood Urine Nitrite Urine Bilirubin Urine Urobilinogen Ur Leukocyte Esterase Urine RBC Urine WBC Ur Squamous Epith Cells Urine Bacteria Urine Mucus 02/03/19 02/03/19 02/03/19 13:40 13:40 15:18 WBC RBC Hgb Hct MCV MCH MCHC RDW Std Deviation RDW Coeff of Kael Plt Count MPV Immature Gran % (Auto) Neut % (Auto) Lymph % (Auto) [place] % (Auto) Eos % (Auto) Baso % (Auto) Absolute Neuts (auto) Absolute Lymphs (auto) Nucleated RBC % PT INR APTT Sodium Potassium Chloride Carbon Dioxide Anion Gap BUN Creatinine Estim Creat Clear Calc Est GFR (MDRD) Af Amer Est GFR (MDRD) Non-Af BUN/Creatinine Ratio Glucose Hemoglobin A1c 7.8 H Calcium Iron 39 L TIBC 362 Iron Saturation 10.8 L Ferritin 25 L Troponin I Triglycerides Cholesterol LDL Cholesterol VLDL Cholesterol HDL Cholesterol TSH 1.38 Urine Color Yellow Urine Clarity Clear Urine pH 7.0 Ur Specific [place] 1.005 Urine Protein Negative Urine Glucose (UA) Normal Urine Ketones Negative Urine Occult Blood Negative Urine Nitrite Negative Urine Bilirubin Negative Urine Urobilinogen Normal Ur Leukocyte Esterase Negative Urine RBC 0 SEEN Urine WBC 0-5 SEEN Ur Squamous Epith Cells 0 SEEN Urine Bacteria 0 SEEN Urine Mucus 0 SEEN 02/04/19 02/04/19 06:05 06:05 WBC 8.3 RBC 3.94 L Hgb 9.6 L Hct 31.0 L MCV 78.7 L MCH 24.4 L MCHC 31.0 L RDW Std Deviation 53.9 H RDW Coeff of Kael 18.7 H Plt Count 231 MPV 10.5 Immature Gran % (Auto) 0.400 Neut % (Auto) 71.2 H Lymph % (Auto) 17.7 L [place] % (Auto) 7.9 Eos % (Auto) 2.6 Baso % (Auto) 0.2 Absolute Neuts (auto) 5.9 Absolute Lymphs (auto) 1.47 Nucleated RBC % 0 PT INR APTT Sodium 140 Potassium 3.8 Chloride 105 Carbon Dioxide 29.0 Anion Gap 6 BUN 16 Creatinine 1.11 Estim Creat Clear Calc 59.37 Est GFR (MDRD) Af Amer 83 Est GFR (MDRD) Non-Af 69 BUN/Creatinine Ratio 14.4 Glucose 171 H Hemoglobin A1c Calcium 8.4 L Iron TIBC Iron Saturation Ferritin Troponin I Triglycerides 186 Cholesterol 132 LDL Cholesterol 67 VLDL Cholesterol 37 HDL Cholesterol 28 L TSH Urine Color Urine Clarity Urine pH Ur Specific [place] Urine Protein Urine Glucose (UA) Urine Ketones Urine Occult Blood Urine Nitrite Urine Bilirubin Urine Urobilinogen Ur Leukocyte Esterase Urine RBC Urine WBC Ur Squamous Epith Cells Urine Bacteria Urine Mucus POC Glucose 02/04/19 02/03/19 02/03/19 08:21 23:37 17:55 POC Glucose 161 H 141 H 110 Current Home Med List Medication Instructions Recorded Confirmed Type Albuterol IH (ProAir) [Proair Hfa 1 puff INHALATION Q4H PRN PRN 02/02/19 02/03/19 History (SP)Vent Pts] Carvedilol [Coreg] 25 mg PO BID 02/02/19 02/03/19 History Furosemide [Lasix] 40 mg PO BID 02/02/19 02/03/19 History Gabapentin [Neurontin] 100 mg PO QHS 02/02/19 02/03/19 History Glipizide [Glipizide ER] 10 mg PO DAILY 02/02/19 02/03/19 History Insulin Lispro [Humalog] See Protocol SQ ACHS 02/02/19 02/03/19 History Lisinopril [Zestril] 20 mg PO BID 02/02/19 02/03/19 History Melatonin 10 mg PO QHS 02/02/19 02/03/19 History Metformin HCl 1,000 mg PO BID 02/02/19 02/03/19 History Omeprazole 40 mg PO DAILY 02/02/19 02/03/19 History Pravastatin [Pravachol] 80 mg PO QHS 02/02/19 02/03/19 History Spironolactone [Aldactone] 25 mg PO DAILY 02/02/19 02/03/19 History Tamsulosin HCl [Flomax] 0.4 mg PO QHS 02/02/19 02/03/19 History Polyethylene Glycol 3350 [Miralax] 17 gm PO DAILY 02/03/19 02/03/19 History Current Medications Generic Name Dose Route Start Last Admin Trade Name Freq PRN Reason Stop Dose Admin Acetaminophen 650 mg 02/03/19 17:27 Tylenol PO Q6H PRN PRN Mild pain 1-3/Temp > 100.7 F Aspirin 81 mg 02/04/19 08:00 02/04/19 08:36 Aspirin, Baby PO 81 mg DAILY@0800 ROB Administration Carvedilol 25 mg 02/03/19 22:00 02/04/19 08:36 Coreg PO 25 mg BID ROB Administration Dextrose 0 gm 02/03/19 17:27 D50w Syringe IV X1 PRN Hypoglycemia Protocol Enoxaparin Sodium 40 mg 02/04/19 10:00 02/04/19 08:36 Lovenox SC 40 mg DAILY@1000 [facility] Administration Ferrous Sulfate 325 mg 02/04/19 12:00 Ferrous Sulfate PO 1200,1700 [facility] Furosemide 40 mg 02/04/19 10:00 02/04/19 08:38 Lasix PO 40 mg BIDLX ROB Administration Gabapentin 100 mg 02/03/19 22:00 02/03/19 23:21 Neurontin PO 100 mg QHS [facility] Administration Glipizide 10 mg 02/04/19 08:00 02/04/19 09:20 Glucotrol Xl PO Not Given DAILY@0800 [facility] Glucagon 1 mg 02/03/19 17:27 IM .X1 PRN Hypoglycemia Sodium Chloride 250 mls @ 15 mls/hr 02/03/19 17:30 IV .[id number] PRN SALINE FLUSH Insulin Human Lispro 0 unit 02/04/19 11:00 Humalog Kwikpen (Bkc) SC ACHS [facility] Protocol Lisinopril 20 mg 02/03/19 22:00 02/04/19 08:37 Zestril PO 20 mg BID [facility] Administration Melatonin 10 mg 02/03/19 22:00 02/03/19 23:19 Melatonin PO 10 mg QHS [facility] Administration Metformin HCl 1,000 mg 02/04/19 08:00 02/04/19 09:20 [facility] Ondans[facility] HCl 4 mg 02/03/19 17:27 Zofran IV Q8H PRN PRN NAUSEA/VOMITING Pantoprazole Sodium 40 mg 02/04/19 10:00 02/04/19 08:36 Protonix PO 40 mg DAILY [facility] Administration Polyethylene Glycol 17 gm 02/04/19 10:00 02/04/19 08:36 Miralax PO 17 gm DAILY [facility] Administration Pravastatin Sodium 80 mg 02/03/19 22:00 02/03/19 23:21 Pravachol PO 80 mg QHS [facility] Administration Sodium Chloride 10 - 40 ml 02/03/19 17:30 IV UD PRN SALINE FLUSH Spironolactone 25 mg 02/04/19 08:00 02/04/19 08:36 [facility] Administration Tamsulosin HCl 0.4 mg 02/03/19 22:00 02/03/19 23:20 Flomax PO 0.4 mg QHS ROB Administration mri reviewed, acute/subacute pontine infarct Assessment/Plan acute/subacute pontine infarct. MANUELA, not on cpap asa permissive htn statin pt/ot/sp echo carotid imaging if not done tele re-eval manuela as op recommend return to [facility] if above w/u negative
[2019-02-04] MEDS: Insulin Lispro 100 UNIT/ML INSULN.PEN SC ×3 (11:14→21:44)
[2019-02-04] MEDS: Ferrous Sulfate 325 MG Tablet PO ×2 (11:17→16:29)
--- NOTE | 2019-02-04 11:46 | CASEMGMT ---
Social Work Met with patient to complete PHQ-9. During interview, pt became tearful. Frustrated with stroke and limitations, and he feels he let his sons down. Pt resides at [facility] and acknowledges he will be there for awhile. Pt is hopeful if he can return skilled and continue with therapy for more improvement. Provided emotional and verbal support. Provided stroke support group information and encouraged pt to attend. Will communicate tearfulness and SW/counseling needs upon return. [facility] can accept pt back, just awaiting therapy notes to begin precert. Will continue to follow. Sherice Louise, NETTIE BURROUGHSW
--- NOTE | 2019-02-04 12:10 | CASEMGMT ---
LW/POA not in echart or paper chart. Pt is here from [facility]. SW left a message for Rebecca at [facility] requesting she fax over LW/POA if they have them on file. THANH Lloyd
[2019-02-04 12:11] LABS: Bedside Glucose 234 mg/dL (70-110)
--- NOTE | 2019-02-04 13:51 | NURSING ---
this RN taking over care at this time
--- NOTE | 2019-02-04 15:49 | CASEMGMT ---
Updates faxed to [facility]. Patient does not a pre-cert before he can return. SW was misinformed earlier that he could return without pre-cert. Plan: d/c to [facility] under skilled level of care pending pre-cert. Jeanette HODGES [employer]OSPECTING SUPERVISOR
[2019-02-04 16:51] LABS: Bedside Glucose 230 mg/dL (70-110)
[2019-02-04] MEDS: Gabapentin 100 MG Capsule PO (21:44)
[2019-02-04] MEDS: Tamsulosin HCl 0.4 MG Capsule PO (21:44)
[2019-02-04] MEDS: Pravastatin 80 MG Tablet PO (21:44)
[2019-02-04] MEDS: MELATONIN 10 MG TABLET PO (21:44)
[2019-02-04 21:51] LABS: Bedside Glucose 227 mg/dL (70-110)
[2019-02-05] VITALS (11 sets, daily range): BP systolic 137–145; BP diastolic 70–82; PULSE 68–74; RESP 16–18; TEMP 36.4–36.9; O2SAT 94–98; BMI 37.7
[2019-02-05] MEDS: Insulin Lispro 100 UNIT/ML INSULN.PEN SC ×3 (06:20→17:18)
[2019-02-05 06:35] LABS: Bedside Glucose 207 mg/dL (70-110)
[2019-02-05] MEDS: Pantoprazole Sodium 40 MG Tablet PO (09:35)
[2019-02-05] MEDS: Furosemide 40 MG Tablet PO ×2 (09:35→17:18)
[2019-02-05] MEDS: Polyethylene Glycol 3350 17 GM PACKET PO (09:35)
[2019-02-05] MEDS: Spironolactone 25 MG Tablet PO (09:35)
[2019-02-05] MEDS: glipiZIDE XL 5 MG Tablet 10 MG PO (09:35)
[2019-02-05] MEDS: metFORMIN HCl 1,000 MG Tablet 1000 MG PO ×2 (09:35→17:18)
[2019-02-05] MEDS: Enoxaparin 40 MG/0.4 ML Syringe SC (09:35)
[2019-02-05] MEDS: Lisinopril 20 MG Tablet PO ×2 (09:35→21:08)
[2019-02-05] MEDS: Aspirin 81 MG TAB.CHEW PO (09:35)
[2019-02-05] MEDS: Carvedilol 25 MG Tablet PO ×2 (09:36→21:08)
--- NOTE | 2019-02-05 10:54 | PCM.PROGNOTE ---
Subjective: Chief complaint: Follow-up after admission for multiple small acute pontine infarcts and iron deficiency anemia. Patient seen and examined. No acute events overnight. Patient denies any complaints, asymptomatic. Speech is still slurred, dysarthric. No new complaints. His vital signs are stable. - Physical Exam General: Alert, Oriented x3, Cooperative, No apparent distress HEENT: Atraumatic, PERRLA, EOMI, Normocephalic Oral: Moist Mucosa, No Gingival or Mucosal Lesions/ Ulcerations Neck: Supple, No JVD, Negative Carotid Bruits, Trachea Midline, Thyroid Normal Size and Texture Lungs: Clear to auscultation, Normal air movement, No rhonchi, No wheeze, No rales, Diminished Cardiovascular: Regular rate, Regular Rhythm, Normal S1, Normal S2, PMI Normal Abdomen: Bowel Sounds Present, Soft, Non Tender, Non-Distended, No Hepato-splenomegaly, Obese Extremities: No clubbing, No cyanosis, Edema Skin: No rashes, No breakdown Lymphatic: No Cervical, Supraclavicular, or Inguinal Adenopathy Neurological: Cranial nerves II-XII grossly intact, Motor Exam 5/5 strength throughout, - - Minimal dysarthria. Psych/Mental Status: Normal Affect, Appropriate, Alert and oriented to time, place, person, mood and affect Vital Signs Temp Pulse Resp BP Pulse Ox 97.5 F L 72 18 145/70 H 94 02/05/19 09:31 02/05/19 09:31 02/05/19 09:31 02/05/19 09:31 02/05/19 09:31 Oxygen Delivery Method Room Air Weight: 262 lb 12.656 oz Body Mass Index (BMI) 37.7 Finger Stick Blood Glucose 174 Intake and Output for Last 24 Hours 02/03/19 02/04/19 02/05/19 23:59 23:59 23:59 Intake Total 741.25 / 741.25 1897.5 / 1897.5 120 / 120 Output Total 700 / 700 Balance 41.25 / 41.25 1897.5 / 1897.5 120 / 120 POC Glucose 02/05/19 02/04/19 02/04/19 06:17 21:35 16:26 POC Glucose 207 H 227 H 230 H 02/04/19 11:10 POC Glucose 234 H Medical Necessity - Tobacco Use Smoking Status: Former smoker Tobacco Use: Cigars, Pipe Assessment/Plan This is a 73 years old male patient presented to the ED from the [facility] because of slurred speech, weakness and minimal left-sided facial droop and he was found to have 3 small acute ischemic infarct within the medulla. #1 Multiple small acute pontine infarcts: He is on aspirin and statins. Blood pressure under control, other vitals are stable. Apart from minimal dysarthria, no major focal deficit. CTA head and neck was unremarkable as above. Chest x-ray showed no acute findings. EKG revealed normal sinus rhythm, no acute ischemic changes or cardiac arrhythmias. 2D echocardiogram revealed ejection fraction of 55%, stage II diastolic dysfunction, pulmonary artery pressure of 40-45 and mild aortic stenosis. Appreciate neurology recommendations. Awaiting insurance approval for placement to senior care facility. #2 Iron deficiency anemia: Hemoglobin and hematocrit remained stable, asymptomatic. He is on iron supplement. Denies any active bleeding. According to the son, patient received blood transfusion back in November, at the custod[facility]. Serum iron, ferritin and iron saturation are low. Stool for occult blood ordered, not done yet. Patient may need upper EGD and colonoscopy in the future as outpatient for anemia work-up. #3 type 2 diabetes mellitus/peripheral neuropathy: Blood sugar stable, hemoglobin A1c 7.8. Continue ADA diet, Accu-Cheks, insulin sliding scale, continue glipizide and metformin #4 hypertension: Blood pressure stable, continue Coreg, lisinopril and Aldactone. #5 chronic CHF: Clinically stable, compensated. Continue on Coreg, lisinopril, Aldactone and Lasix. #6 hyperlipidemia: Continue statins. #7 benign prostatic hypertrophy: Continue Flomax. #8 DVT prophylaxis: Subcu Lovenox. This note was generated with [employer] dictation software. It may contain incorrect words, spelling, and punctuation that were not noted in checking the note before signing. Code Visit Inpatient E&M: 86907 Subs Hosp L2
[2019-02-05 12:16] LABS: Bedside Glucose 217 mg/dL (70-110)
[2019-02-05] MEDS: Ferrous Sulfate 325 MG Tablet PO ×2 (13:33→17:18)
[2019-02-05 17:01] LABS: Bedside Glucose 167 mg/dL (70-110)
[2019-02-05] MEDS: Acetaminophen 325 MG Tablet 650 MG PO (21:07)
[2019-02-05] MEDS: Tamsulosin HCl 0.4 MG Capsule PO (21:08)
[2019-02-05] MEDS: Pravastatin 80 MG Tablet PO (21:08)
[2019-02-05] MEDS: Gabapentin 100 MG Capsule PO (21:08)
[2019-02-05] MEDS: MELATONIN 10 MG TABLET PO (21:08)
[2019-02-06] VITALS (12 sets, daily range): BP systolic 120–139; BP diastolic 58–78; PULSE 64–87; RESP 16–24; TEMP 36.4–36.9; O2SAT 94–98; BMI 37.7
[2019-02-06 00:16] LABS: Bedside Glucose 127 mg/dL (70-110)
[2019-02-06] MEDS: 0.9% NaCl Peripheral Flush Adult/Peds IV (05:09)
[2019-02-06] MEDS: Acetaminophen 325 MG Tablet 650 MG PO ×2 (06:22→14:55)
[2019-02-06] MEDS: Insulin Lispro 100 UNIT/ML INSULN.PEN SC ×3 (06:59→20:49)
[2019-02-06 07:10] LABS: Bedside Glucose 170 mg/dL (70-110)
--- NOTE | 2019-02-06 07:47 | PCM.PROGNOTE ---
Subjective: Chief complaint: Follow-up after admission for multiple small acute pontine infarcts and iron deficiency anemia. Patient seen and examined. No acute events overnight. He is asymptomatic, no complaints. His vital signs are stable. - Physical Exam General: Alert, Oriented x3, Cooperative, No apparent distress HEENT: Atraumatic, PERRLA, EOMI, Normocephalic Oral: Moist Mucosa, No Gingival or Mucosal Lesions/ Ulcerations Neck: Supple, No JVD, Negative Carotid Bruits, Trachea Midline, Thyroid Normal Size and Texture Lungs: Clear to auscultation, Normal air movement, No rhonchi, No wheeze, No rales, Diminished Cardiovascular: Regular rate, Regular Rhythm, Normal S1, Normal S2, PMI Normal Abdomen: Bowel Sounds Present, Soft, Non Tender, Non-Distended, No Hepato-splenomegaly, Obese Extremities: No clubbing, No cyanosis, Edema Skin: No rashes, No breakdown Lymphatic: No Cervical, Supraclavicular, or Inguinal Adenopathy Neurological: Cranial nerves II-XII grossly intact, Neuro grossly intact Psych/Mental Status: Normal Affect, Appropriate, Alert and oriented to time, place, person, mood and affect Vital Signs Temp Pulse Resp BP Pulse Ox 97.8 F 67 18 129/58 H 94 02/06/19 05:00 02/06/19 05:00 02/06/19 05:00 02/06/19 05:00 02/06/19 07:10 Oxygen Delivery Method Room Air Weight: 262 lb 12.656 oz Body Mass Index (BMI) 37.7 Finger Stick Blood Glucose 174 Intake and Output for Last 24 Hours 02/04/19 02/05/19 02/06/19 23:59 23:59 23:59 Intake Total 1897.5 / 1897.5 720 / 820 150 / 150 Output Total 400 / 400 Balance 1897.5 / 1897.5 320 / 420 150 / 150 POC Glucose 02/06/19 02/05/19 02/05/19 06:57 21:04 16:43 POC Glucose 170 H 127 H 167 H 02/05/19 12:08 POC Glucose 217 H Medical Necessity - Tobacco Use Smoking Status: Former smoker Tobacco Use: Cigars, Pipe Assessment/Plan This is a 73 years old male patient presented to the ED from the [place] [facility] because of slurred speech, weakness and minimal left-sided facial droop and he was found to have 3 small acute ischemic infarct within the medulla. #1 Multiple small acute pontine infarcts: Remained on aspirin and statins. Blood pressure under control, other vitals are stable. Dysarthria is improving, speech is more clear. CTA head and neck was unremarkable as above. Chest x-ray showed no acute findings. EKG revealed normal sinus rhythm, no acute ischemic changes or cardiac arrhythmias. 2D echocardiogram revealed ejection fraction of 55%, stage II diastolic dysfunction, pulmonary artery pressure of 40-45 and mild aortic stenosis. Appreciate neurology recommendations. Plan for swallowing study tomorrow, awaiting insurance approval for placement to correction facility. #2 Iron deficiency anemia: Hemoglobin and hematocrit remained stable, asymptomatic. He is on iron supplement. Denies any active bleeding. According to the son, patient received blood transfusion back in November, at the [place] [facility]. Serum iron, ferritin and iron saturation are low. Stool for occult blood ordered, not done yet. Recommend referral to GI by PCP as outpatient for upper endoscopy and colonoscopy. #3 type 2 diabetes mellitus/peripheral neuropathy: Blood sugar stable, hemoglobin A1c 7.8. Continue ADA diet, Accu-Cheks, insulin sliding scale, continue glipizide and metformin #4 hypertension: Blood pressure stable, continue Coreg, lisinopril and Aldactone. #5 chronic CHF: Clinically stable, compensated. Continue on Coreg, lisinopril, Aldactone and Lasix. #6 hyperlipidemia: Continue statins. #7 benign prostatic hypertrophy: Continue Flomax. #8 DVT prophylaxis: Subcu Lovenox. This note was generated with [employer] dictation software. It may contain incorrect words, spelling, and punctuation that were not noted in checking the note before signing. Code Visit Inpatient E&M: 99814 Subs Hosp L2
[2019-02-06] MEDS: Aspirin 81 MG TAB.CHEW PO (08:30)
[2019-02-06] MEDS: glipiZIDE XL 5 MG Tablet 10 MG PO (08:30)
[2019-02-06] MEDS: metFORMIN HCl 1,000 MG Tablet 1000 MG PO ×2 (08:30→17:52)
[2019-02-06] MEDS: Spironolactone 25 MG Tablet PO (08:30)
[2019-02-06] MEDS: Pantoprazole Sodium 40 MG Tablet PO (09:39)
[2019-02-06] MEDS: Furosemide 40 MG Tablet PO ×2 (09:39→17:52)
[2019-02-06] MEDS: Enoxaparin 40 MG/0.4 ML Syringe SC (09:39)
[2019-02-06] MEDS: Lisinopril 20 MG Tablet PO ×2 (09:39→20:49)
[2019-02-06] MEDS: Carvedilol 25 MG Tablet PO ×2 (09:39→20:49)
[2019-02-06] MEDS: Ferrous Sulfate 325 MG Tablet PO ×2 (12:21→17:52)
[2019-02-06 12:25] LABS: Bedside Glucose 161 mg/dL (70-110)
[2019-02-06] MEDS: NYSTATIN 500,000 UNIT/5 ML UDC 500000 UNIT PO ×3 (14:56→20:49)
[2019-02-06 16:55] LABS: Bedside Glucose 141 mg/dL (70-110)
[2019-02-06] MEDS: Pravastatin 80 MG Tablet PO (20:49)
[2019-02-06] MEDS: Gabapentin 100 MG Capsule PO (20:49)
[2019-02-06] MEDS: Tamsulosin HCl 0.4 MG Capsule PO (20:49)
[2019-02-06] MEDS: MELATONIN 10 MG TABLET PO (20:49)
[2019-02-06 22:41] LABS: Bedside Glucose 197 mg/dL (70-110)
[2019-02-07] VITALS (12 sets, daily range): BP systolic 120–158; BP diastolic 68–86; PULSE 67–82; RESP 18–24; TEMP 36.5–37.1; O2SAT 94–100; BMI 37.7
[2019-02-07] MEDS: Acetaminophen 325 MG Tablet 650 MG PO (03:26)
--- NOTE | 2019-02-07 05:27 | PCM.PN.BLA ---
Progress Note Patient thinks he is having restless leg syndrome Will check ferritin level.
[2019-02-07 06:16] LABS: Bedside Glucose 154 mg/dL (70-110)
[2019-02-07 06:43] LABS: Ferritin 24 ng/mL (26-388)
[2019-02-07] MEDS: Insulin Lispro 100 UNIT/ML INSULN.PEN SC ×2 (06:52→11:44)
[2019-02-07 06:55] LABS: Bedside Glucose 178 mg/dL (70-110)
--- NOTE | 2019-02-07 08:57 | CASEMGMT ---
Updates were faxed to [facility] to obtain insurance authorization. Plan: d/c back to [facility] pending insurance approval. Jeanette HODGES MSW
[2019-02-07] MEDS: Spironolactone 25 MG Tablet PO (09:23)
[2019-02-07] MEDS: Aspirin 81 MG TAB.CHEW PO (09:24)
[2019-02-07] MEDS: metFORMIN HCl 1,000 MG Tablet 1000 MG PO ×2 (09:25→17:35)
[2019-02-07] MEDS: glipiZIDE XL 5 MG Tablet 10 MG PO (09:25)
[2019-02-07] MEDS: Furosemide 40 MG Tablet PO ×2 (09:27→17:35)
[2019-02-07] MEDS: Carvedilol 25 MG Tablet PO ×2 (09:27→21:35)
[2019-02-07] MEDS: Enoxaparin 40 MG/0.4 ML Syringe SC (09:28)
[2019-02-07] MEDS: NYSTATIN 500,000 UNIT/5 ML UDC 500000 UNIT PO ×4 (09:29→21:32)
[2019-02-07] MEDS: Pantoprazole Sodium 40 MG Tablet PO (09:29)
[2019-02-07] MEDS: Lisinopril 20 MG Tablet PO ×2 (09:30→21:33)
[2019-02-07 11:50] LABS: Bedside Glucose 201 mg/dL (70-110)
[2019-02-07] MEDS: Ferrous Sulfate 325 MG Tablet PO ×2 (11:56→17:35)
--- NOTE | 2019-02-07 12:14 | PCM.PN.NEU ---
Subjective: No issues overnight. Care discussed with the hospitalist team. Patient lives in a fpc. Per patient he denies any frequent falls but uses a walker to ambulate and does not drive. Swallow eval today. - Physical Exam General: Alert HEENT: Normocephalic Neck: Supple Lungs: Normal air movement Cardiovascular: Normal S1, Normal S2 Abdomen: Bowel Sounds Present Extremities: No cyanosis Neurological: - - Conscious, alert, CN II through XII grossly intact, power left upper and lower extreme 5 x 5 right lower extremity 5 x 5, right upper extremity has chronic shoulder issues and has difficulty raising, no cerebellar signs at present, no sensory loss at present, gait deferred, reflexes + B/L B/S/T/K/A, NIHSS 0 at present, mRS 3 at baseline Psych/Mental Status: Normal Affect Vital Signs Temp Pulse Resp BP Pulse Ox 97.8 F 68 24 H 120/68 94 02/07/19 08:45 02/07/19 08:45 02/07/19 08:45 02/07/19 08:45 02/07/19 08:45 Oxygen Delivery Method Room Air Weight: 119.2 kg Body Mass Index (BMI) 37.7 Finger Stick Blood Glucose 174 Intake and Output for Last 24 Hours 02/05/19 02/06/19 02/07/19 23:59 23:59 23:59 Intake Total 720 / 820 1030 / 1030 410 / 410 Output Total 400 / 400 Balance 320 / 420 1030 / 1030 410 / 410 Laboratory Tests Past 24 Hrs 02/07/19 06:05 Ferritin 24 L POC Glucose 02/07/19 02/07/19 02/07/19 11:43 06:50 05:15 POC Glucose 201 H 178 H 154 H 02/06/19 02/06/19 02/06/19 20:47 16:48 12:04 POC Glucose 197 H 141 H 161 H Medical Necessity - Tobacco Use Smoking Status: Former smoker Tobacco Use: Cigars, Pipe Assessment/Plan All Active Problems Dysphagia (Acute) Delayed wound healing (Resolved) 73-year male with PMH HTN, HLD, DM, DM neuropathy, CHF and BPH admitted with speech disturbances and weakness/difficulty walking along with left facial weakness, found to have 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 once daily. Dual antiplatelet for 3 weeks followed by single antiplatelet with aspirin. Bleeding risk discussed in detail with patient ?On Pravachol ?MRI brain images reviewed?likely bilateral medial medullary acute infarct and inferior right pontine infarct, per radiology report acute ischemia present within the medulla at the level of the fourth ventricle below the yuan ?CTA head/neck images reviewed and there is likely mid to proximal basilar artery stenosis but per radiology read no hemodynamically significant stenosis or occlusion ?TTE EF 55%, normal LA size, no Doppler evidence of ASD ?HbA1c 7.8, LDL 67 ?Avoid hypotension ?Long-term goal blood pressure less than 130/80 mmHg and goal HbA1c less than 7% ?Stroke risk factors discussed in detail and stroke education provided ?Recommend 30-day event recorder on discharge. ?PT/OT/ST ?Fall precautions ?GI/DVT prophylaxis ?Further medical management per hospitalist team ?Follow-up with neurology as outpatient in 4 weeks ?Please call with questions if any ?Thank you for allowing us to participate in patient's care and management This note has been generated using [employer] dictation software. It may contain incorrect words, spellings and punctuation's which were not noted in the review of the note prior to signing.
--- NOTE | 2019-02-07 13:30 | SP.MBSS_ITS ---
PRIMARY / SECONDARY DIAGNOSIS: dysphagia (R13.12) REFERRING PHYSICIAN: Dr. Brennon Gutierrez MD. CURRENT DIET: mechanical soft textures, nectar thickened liquids DENTITION: suboptimal repair MENTAL STATUS: WFL; dysarthria RESPIRATORY STATUS: O2 via room air REASON FOR REFERRAL: The Patient is a 73 year old male referred for a modified barium swallow (MBS) study to objectively assess the Patients oropharyngeal swallow function under fluoroscopy secondary to multiple recent pontine infarctions. MEDICAL HISTORY: Congestive heart failure, hyperlipidemia, hypertension, peripheral venous insufficiency, type 2 diabetes mellitus with diabetic polyneuropathy and delayed wound healing, status post appendectomy, status post herniorrhaphy, status post total hip and total knee arthroplasty, prior shoulder repair, benign prostatic hyperplasia. PREVIOUS MODIFIED BARIUM SWALLOW STUDY: None. ADDITIONAL OBJECTIVE ASSESSMENT RESULTS: 02/03/2019 MRI revealed 3 tiny foci of acute ischemia each measuring about 3 mm with in the brainstem just inferior to the yuan at the level of the fourth ventricle within the region for the facial motor nucleus, and abducens nerve, and therefore could be affecting the facial paralysis. 02/03/2019 chest x-ray revealed cardiomegaly; minimal degree of left basilar atelectasis. ASSESSMENT PARAMETERS: The Patient participated in a Modified Barium Swallow (MBS) study on 02/07/2019. Dr. David was the radiologist present for this evaluation. This study was recorded in the lateral view and images were sent to PACs for storage. Scoring was completed through each trial using the 8-point Penetration-Aspiration Scale (PAS) and Videofluoroscopic Scale Score (VSS), and summarized via the Modified Barium Swallow Impairment Profile (MBSImP) and the Bolus Residue Scale (BRS), with severity scoring through the Dysphagia Severity Rating Scale (DSRS) and the Swallowing Performance Scale (PSP), and recommended diet textures through the International Dysphagia Diet Standardisation Initiative (IDDSI). RESULTS OF THE EVALUATION: The Patient presents with moderate oropharyngeal dysphagia (DSRS: 4; SPS: 5) with grade I and grade IV overt aspiration of thin and nectar thickened liquids secondary to multiple recent pontine infarctions. OBJECTIVE ASSESSMENT OF SWALLOW FUNCTION (QUANTITATIVE ? PER TRIAL): PENETRATION / ASPIRATION SCALE (CASTRO): 1 = does not enter airway 2 = enters airway/above vocal folds/ejected 3 = enters airway/above vocal folds/not ejected 4 = enters airway/contacts vocal folds/ejected 5 = enters airway/contacts vocal folds/not ejected 6 = enters airway/below vocal folds/ejected 7 = enters airway/below vocal folds/not ejected despite effort 8 = enters airway/below vocal folds/no effort VIDEOFLOROSCOPIC SCALE SCORE (CASTRO): Grade I = aspiration of material that has penetrated into the laryngeal vestibule, intact cough reflex Grade II = aspiration < 10 % of the bolus, intact cough reflex Grade III = aspiration of < 10 % of the bolus, reduced cough reflex or aspiration of > 10 % of the bolus, intact cough reflex Grade IV = aspiration of > 10 % of the bolus, reduced cough reflex PENETRATION / ASPIRATION SCALE (SCORE) WITH VIDEOFLOROSCOPIC SCALE SCORE: Thin liquid - 5 mL tsp.: 7* ? Grade IV Thin liquids via straw (chin tuck): 5 Thin liquids via straw (chin tuck): 3, 7* ? Grade I Thin liquids via straw (chin tuck): 3 [place] thickened liquids via straw (chin tuck): 5, 7* ? Grade I [place] thickened liquids via cup (single sip): 3 [place] thickened liquids via cup (single sip): 5 [place] thickened liquids via cup (single sip): 1 [place] thickened liquids via cup (chin tuck): 2 [place] thickened liquids via cup (chin tuck): 2 [place] thickened liquids via cup (chin tuck): 3 Pudding via spoon: 1 Regular textured cookie: 1 Honey thickened liquids via cup (single sip): 1 Honey thickened liquids via cup (single sip): 1 Honey thickened liquids via cup (single sip): 1 * denotes post prandial occurrence OBJECTIVE ASSESSMENT OF SWALLOW FUNCTION (QUANTITATIVE ? AGGREGATE): MODIFIED BARIUM SWALLOW IMPAIRMENT PROFILE (MBSImP) LABIAL SEAL: 0 (of 4) no labial escape TONGUE CONTROL: 2 (of 3) posterior escape < 50% BOLUS PREPARATION / MASTICATION: 1 (of 3) slow prolonged; complete recollection BOLUS TRANSPORT / LINGUAL MOTION: 3 (of 4) repetitive / disorganized motion ORAL RESIDUE: 2 (of 4) residue collection on oral structures INITIATION OF PHARYNGEAL SWALLOW: 3 (of 4) pyriforms SOFT PALATE ELEVATION: 0 (of 4) no bolus between soft palate & pharyngeal wall LARYNGEAL ELEVATION: 1 (of 3) partial superior movement / approximation ANTERIOR HYOID EXCURSION: 1 (of 2) partial movement EPIGLOTTIC MOVEMENT: 1 (of 2) partial inversion LARYNGEAL VESTIBULE CLOSURE: 1 (of 2) incomplete closure PHARYNGEAL STRIPPING WAVE: 0 (of 2) present / complete PE SEGMENT OPENIN (of 3) complete distension / duration; no obstruction TONGUE BASE RETRACTION: 1 (of 4) trace column of contrast PHARYNGEAL RESIDUE: 1 (of 4) trace residue ESOPHAGEAL BOLUS CLEARANCE: could not view BOLUS RESIDUE SCALE (BRS): 1 (of 6) no residue DYSPHAGIA SEVERITY RATING SCALE (DSRS): 4 (moderate) SWALLOWING PERFORMANCE SCALE (SPS): 5 (moderate) OBJECTIVE ASSESSMENT OF SWALLOW FUNCTION (QUALITATIVE): ORAL PREPARATORY PHASE: reduced (albeit effective) masticatory functioning with prolonged mastication; sufficient anterior oral containment during presentation / manipulation; preserved management of breathing / bolus formation without disrupted E ? S ? E pattern ORAL TRANSITIONAL PHASE: impaired bolus manipulation / transportation with slowed oral motor movements, paired with discoordinated lingual movements (undulations) most prominent with thicker viscosities; impaired oral clearance without a clear side specific consolidation; intermittent premature posterior bolus loss PHARYNGEAL PHASE: consistent pharyngeal swallow dyssynchrony and inconsistent pharyngeal swallow delay (upwards of 3-4 seconds) resulting in pre-prandial and prandial penetration and subsequent aspiration of thin and nectar thickened liquids; reduction in hyolaryngeal excursion and duration with inconsistent laryngeal vestibule pressure generated to expel penetrated material; no signs of pharyngeal dysmotility; no signs of velopharyngeal impairments. ESOPHAGEAL PHASE: no obvious esophageal phase abnormalities observed. CONTRIBUTING / COMPLICATING FACTORS AND NOTABLE FINDINGS: weak cough in response to tracheobronchial aspiration (dystussia); all images complicated by body habitus complicating consistent viewing below the vocal folds. RESPONSE TO STRATEGIES: all deficits managed successfully with bolus rate / volume adjustments, diet texture / viscosity adjustments, with considerations for execution of the chin tuck posture. DYSPHAGIA ASSOCIATED MEDICAL CONSIDERATIONS / INTERVENTION CONSIDERATIONS: The Patient was noted to overtly aspirate during trials of thin liquids, suggesting clinical assessment at bedside relying on identification of classic overt signs and symptoms of aspiration may be sufficient to determine appropriateness for PO texture upgrade. Recommend a repeat modified barium swallow study within 2 - 4 weeks (if clinically appropriate) to further assess the presence and extent of aspiration prior to advancement to a less restrictive diet. Would consider the Patient to be at a higher risk of aspiration related medical complications / aspiration pneumonia / aspiration related pulmonary syndrome secondary to recent stroke with presence of dysphagia, extensive pharyngeal phase impairment, potential for tracheobronchial aspiration of more dense viscosities, suboptimal dentition, current dependent for oral care, number of decayed teeth, advanced age, current [facility] resident, impaired ambulatory status, with no guarantee of prolonged tolerance of honey thickened liquids. Would consider this Patient to be a high risk for malnutrition and dehydration due to the extent of recommended liquid viscosities / diet texture restrictions, and the related negative impact on palatability / intake pleasure / quality of life and anticipated smaller PO intake quantities, higher risk for early satiety with recommended thicker viscosities, and reduced rate of intake with slower viscosities, poor oral control, recent cerebrovascular accident, the Patients advanced age, and the severity of dysphagia. The Patient may require intervention to reduce the risk of malnutrition, with considerations for food enrichment, oral nutritional supplementation, and possible considerations for alternative means of nutrition. Would strongly consider a referral to a registered clinical dietitian. Would consider implementation of the Story Free Water Protocol (FFWP) following Patient and staff education. Will continue to recommend an aggressive oral care program that includes pre-rinse use prior to water intake; routine oral care / denture care in the a.m., prior to oral intake, after oral intake, and prior to bed via toothbrush / swab / rinse; use of oral moisturizers as needed to reduce impact of xerostomia; and frequent dental checkups post-acute. INTERVENTION RECOMMENDATIONS AND CONSIDERATIONS: The Patient requires intensive skilled speech-language intervention targeting diet texture management and training / implementation of recommended compensatory strategies; training and implementation of recommended oropharyngeal strengthening exercises to facilitate improved oropharyngeal strength and coordination; considerations for neuromuscular electrical stimulation (NMES) / VitalStim; training, implementation, and Patient / caregiver education regarding implementation of the Story Free Water Protocol (FFWP); Patient education regarding stroke associated dysphagia; and Patient training targeting meal preparation / thickened liquid preparation POST ASSESSMENT EDUCATION: Results and recommendations were discussed with the Patient immediately following MBS completion, with the Patient verbalizing understanding and agreement with all recommendations and education provided. We discussed factors impacting effects of aspiration, to include: the quantity of aspiration, the depth of aspiration (trachea or distal airways), and the physical properties of the aspirate. We discussed consequences of oropharyngeal dysphagia, to include pulmonary complications from tracheobronchial aspiration; inadequate oral intake because of dysphagia; reduced caloric intake resulting in unintentional and potentially medically complicating loss of weight. I provided brief overview of signs and symptoms of aspiration, with recommendations for the Patient to further discuss symptoms with the Patients primary care team following discharge from the acute care hospital. DIET TEXTURE RECOMMENDATIONS: Will recommend a mechanical soft textured (IDDSI: 5), honey thickened liquid (IDDSI: 3) diet RECOMMENDED COMPENSATORY STRATEGIES: Direct supervision, chin tuck, reduced bolus volume / rate of ingestion, seated upright at 90 degrees during PO intake, remain upright for 30-60 minutes post meal (GERD precaution), medications one at a time with lena. IMAGE COUNT: [id number] Nawaf Crump M.A., ALBAR[employer]-HE[employer] READER, CBIS MBSImP Certified, LSVT Certified [facility] Speech-Language Pathology Department [email or web address]
--- NOTE | 2019-02-07 13:35 | RAD_ITS ---
STUDY: SWALLOWING STUDY REASON FOR EXAM: Male, 73 years old. Dysphagia. TECHNIQUE: The examination was performed with Speech Pathology in attendance. Under fluoroscopic observation, the patient ingested thin barium, thick barium, barium pudding, and barium coated cracker. FLUOROSCOPY TIME: 5:16 minutes/seconds. 4506 fluoroscopic images were obtained. RADIOLOGIST INVOLVEMENT: Radiologist was present and providing direct supervision. COMPARISON: None. FINDINGS: The following was observed during swallowing of the various mixtures of barium: Thin Barium: Aspiration with ingestion of thin liquids. Thick Barium: Aspiration with ingestion of nectar thickened liquids. Barium Pudding: There was no evidence of aspiration or laryngeal penetration. Barium Coated Cracker: There was no evidence of aspiration or laryngeal penetration. RAD/Swallowing Function w/Video IMPRESSION: Aspiration with ingestion of thin liquids and nectar thick liquids The swallow study findings were discussed with the patient by the speech pathologist at the conclusion of the examination. Please see speech pathology report for more information and recommendations. Electronically Signed: Enrique David, at 14:35 EDT , Service support ,
--- NOTE | 2019-02-07 14:21 | PN_ITS ---
Subjective: The patient is a 73-year-old male with a past medical history of diastolic congestive heart failure, BPH, hyperlipidemia, hypertension, diabetes mellitus type 2, lower extremity venous insufficiency and diabetic peripheral polyneuropathy who was sent to the emergency department at [facility] on 02/03/2019 from [facility] with a complaint of difficulty getting his speech out and trouble ambulating. In the emergency department his initial NIH stroke scale score was 3. He was not a candidate for TPA because his symptoms had started greater than 24 hours prior to admission. CBC was remarkable for a hemoglobin of 10 with an MCV of 79.4 and an increased RDW. Platelets were within normal limits. BUN was 19 and the creatinine was 1.19. Random glucose was 123 and his hemoglobin A1c was 7.8. Serum iron was low at 39 and the TIBC was 362. Iron saturation was 10.8 and his ferritin was 25. Troponin was less than 0.015. TSH was normal. UA had 0-5 WBCs with no bacteria seen. A noncontrasted CT brain showed chronic involutional changes with no acute findings. CTA of the head and neck showed no occlusion or significant stenosis of the head and neck vessels. He was admitted to a monitored bed on PCU with suspected CVA. Stroke protocol was initiated. 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 He was seen by PT/OT and ST. echocardiogram showed an ejection fraction of 55% with stage II diastolic dysfunction. He had trivial tricuspid valve insufficiency and the PA pressure was elevated at 40 to 45 mmHg which is consistent with mild pulmonary hypertension. He was seen in consultation by Dr. Naylor who recommends aspirin and Plavix for 3 weeks and then discontinuation of Plavix with continued lifelong aspirin. On 02/07/2019 he had a swallowing evaluation that showed overt aspiration of thin liquids and nectar thick liquids. Speech therapy recommended mechanical soft diet with honey thickened liquids. Direct supervision, chin tuck, reduced bolus and rate of ingestion was recommended. He should also be upright for 90 degrees during p.o. intake and remain upright for 30 to 60 minutes after eating. Meds should be given 1 at a time with purees. All events of the past 24 hours of been reviewed. He is afebrile. He is hemodynamically stable and is currently 96 and 100% saturated on room air. Blood sugars are mostly controlled. They are a little labile due to dietary restrictions. Hemoglobin A1c was 7.8. He does not move his RUE/R shoulder due to pain. Denies cough, SOB, CP, calf tenderness. - Physical Exam General: Alert, Oriented x3, Cooperative, No apparent distress, Well developed, Well nourished HEENT: Atraumatic, PERRLA, EOMI, Normocephalic Oral: Moist Mucosa, No Gingival or Mucosal Lesions/ Ulcerations Neck: Supple, Negative Carotid Bruits, No Nodes, Trachea Midline Lungs: Clear to auscultation - after a few deep breaths Cardiovascular: Regular rate, Regular Rhythm, Normal S1, Normal S2, No rub noted, No Gallop, - - Telemetry shows normal sinus rhythm with PACs and PVCs. Abdomen: Bowel Sounds Present, Soft, Non Tender, Non-Distended Extremities: No clubbing, No cyanosis, No Calf Tenderness Skin: No rashes, No breakdown Neurological: Cranial nerves II-XII grossly intact, Neuro grossly intact - the right shoulder is chronically paindul and he has restriced ROM, - - NIH is 0 Psych/Mental Status: Normal Affect, Appropriate Vital Signs Temp Pulse Resp BP Pulse Ox 97.8 F 68 24 H 120/68 94 02/07/19 08:45 02/07/19 08:45 02/07/19 08:45 02/07/19 08:45 02/07/19 08:45 Oxygen Delivery Method Room Air Weight: 262 lb 12.656 oz Body Mass Index (BMI) 37.7 Finger Stick Blood Glucose 174 Intake and Output for Last 24 Hours 02/05/19 02/06/19 02/07/19 23:59 23:59 23:59 Intake Total 720 / 820 1030 / 1030 410 / 410 Output Total 400 / 400 Balance 320 / 420 1030 / 1030 410 / 410 Laboratory Tests Past 24 Hrs 02/07/19 06:05 Ferritin 24 L POC Glucose 02/07/19 02/07/19 02/07/19 11:43 06:50 05:15 POC Glucose 201 H 178 H 154 H 02/06/19 02/06/19 20:47 16:48 POC Glucose 197 H 141 H Medical Necessity - Tobacco Use Smoking Status: Former smoker Tobacco Use: Cigars, Pipe Assessment/Plan Impressions 1. 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 Will need aspirin lifelong. Continue high intensity statin. continue PT/OT/speech therapy. will need IPRU at [place]. 2. Oral pharyngeal dysphagia-on honey thick liquids. At risk for dehydration due to this. Monitor the oral intake closely 3. Iron deficiency anemia - had to have a transfusion in November 2018. Hemoccult stool has been ordered. He has been placed on an iron supplement PO however he is also on a PPI which impairs iron absorption. Will give iron sucrose daily while he is in the hospital and continue ferrous sulfate with vitamin C twice daily as an outpatient. Will need follow-up with his PCP post discharge to arrange for endoscopy. 4. Diabetes mellitus type 2-continue ADA diet, Accu-Cheks, sliding scale insulin, glipizide and metformin. continue to monitor on honey thick liquids - suspect his intake will go down. 5. Hypertension-goal of treatment is less than 130/80 long-term. Permissive hypertension in light of recent ischemic CVAs. Continue lisinopril, Coreg, Aldactone and Lasix. 6. Chronic diastolic congestive heart failure with stage II diastolic dysfunction on recent echocardiogram. Continue Lasix and Aldactone. 7. Pulmonary hypertension with a PA pressure of 40-45 consistent with mild to moderate pulmonary hypertension. 8. HLD - continue high intensity statin - Goal LDL is < 70. 9. DVT prophylaxis with Lovenox DC to SNF or IPRU at [place]. Recheck the lab in the AM Code Visit Inpatient E&M: 20965 Subs Hosp L2
--- NOTE | 2019-02-07 15:02 | CASEMGMT ---
SUMI received call from Michaelle at [facility]. She said patient was approved to return. SUMI spoke with physician and he is not ready today. SUMI let Michaelle know this information. Jeanette HODGES MSW
[2019-02-07 17:45] LABS: Bedside Glucose 136 mg/dL (70-110)
[2019-02-07 20:15] LABS: Anion Gap 8 (5-15); BUN 20 mg/dL (7-18); Calcium,Total 8.6 mg/dL (8.5-10.1); Chloride 105 mmol/L (98-107); Creatinine, Serum 1.33 mg/dL (0.70-1.30); EST Glomerular Filtration Rate 56 mL/min (>60); Est Glom Filt Rate - Afr Amer 67 mL/min (>60); Estimated Creatinine Clearance 49.55 ml/min; Glucose 133 mg/dL (74-106); Magnesium 1.8 mg/dL (1.6-2.6); Potassium 3.6 mmol/L (3.5-5.1); Sodium Level 141 mmol/L (136-145)
[2019-02-07] MEDS: Pravastatin 80 MG Tablet PO (21:32)
[2019-02-07] MEDS: Gabapentin 100 MG Capsule PO (21:32)
[2019-02-07] MEDS: Tamsulosin HCl 0.4 MG Capsule PO (21:34)
[2019-02-07] MEDS: MELATONIN 10 MG TABLET PO (21:34)
[2019-02-07 22:40] LABS: Bedside Glucose 136 mg/dL (70-110)
[2019-02-08 01:23] VITALS: BP 132/70; PULSE 78; RESP 18; TEMP 36.9; O2SAT 96
[2019-02-08 03:21] VITALS: PULSE 71
[2019-02-08 03:55] VITALS: BP 124/84; PULSE 73; RESP 16; TEMP 36.4; O2SAT 96
[2019-02-08 05:20] VITALS: BP 148/77; PULSE 67; RESP 18; TEMP 37.1; O2SAT 93
[2019-02-08 07:10] VITALS: PULSE 64
[2019-02-08 07:10] LABS: Bedside Glucose 149 mg/dL (70-110)
[2019-02-08] MEDS: glipiZIDE XL 5 MG Tablet 10 MG PO (08:17)
[2019-02-08] MEDS: Spironolactone 25 MG Tablet PO (08:17)
[2019-02-08] MEDS: metFORMIN HCl 1,000 MG Tablet 1000 MG PO (08:17)
[2019-02-08] MEDS: Aspirin 81 MG TAB.CHEW PO (08:18)
[2019-02-08 09:20] VITALS: BP 129/70; PULSE 66; RESP 18; TEMP 36.6; O2SAT 96
[2019-02-08] MEDS: Pantoprazole Sodium 40 MG Tablet PO (10:43)
[2019-02-08] MEDS: NYSTATIN 500,000 UNIT/5 ML UDC 500000 UNIT PO (10:43)
[2019-02-08] MEDS: Enoxaparin 40 MG/0.4 ML Syringe SC (10:43)
[2019-02-08] MEDS: Lisinopril 20 MG Tablet PO (10:43)
[2019-02-08] MEDS: Carvedilol 25 MG Tablet PO (10:44)
[2019-02-08] MEDS: Furosemide 40 MG Tablet PO (10:44)
[2019-02-08 11:45] LABS: Bedside Glucose 168 mg/dL (70-110)
[2019-02-08 11:55] VITALS: BMI 37.7
--- NOTE | 2019-02-08 13:01 | PCM.TXEXTCAR ---
- Diet 02/04/19 12:17 Diet: Cardiac: Calorie-Controlled Food consistency:: Mechanical Soft/Ground Liquid Consistency:: Honey Thick Is pt able to select menu?: No Diet Comments: Supervision w/ assist; straws ok; seated at 90 degrees; meds w/ purees How many daily calories?: 1999 calorie - Routine Orders/Code Status Enema Type: Fleetz Enema Frequency: Daily PRN Suppository Type: Dulcolax 10mg Suppository Frequency: Daily PRN O2 Liters per Minute: 1-2 O2 Frequency: PRN Keep PO Greater than or Equal to (%): 90 Routine Lab Work: - - CBC, MAG and BMP in 1 week. Hemoccult stool. - Therapies Weight Bearing: Full weight bearing Physical Therapy: Eval and Treat Occupational Therapy: Eval and Treat Speech Therapy: Eval and Treat - Problem/Diagnosis (1) Benign prostatic hyperplasia Status: Chronic Current Visit: Yes (2) Hyperlipidemia Status: Chronic Current Visit: Yes (3) Hypertension Status: Chronic Current Visit: Yes (4) Delayed wound healing Status: Resolved Current Visit: No (5) Type 2 diabetes mellitus with diabetic polyneuropathy Status: Chronic Current Visit: No (6) Venous insufficiency (chronic) (peripheral) Status: Chronic Current Visit: No (7) Iron deficiency anemia Status: Chronic Current Visit: Yes (8) Dysphagia Status: Acute Current Visit: Yes (9) Chronic diastolic (congestive) heart failure Status: Chronic Current Visit: Yes (10) Grade II diastolic dysfunction Status: Chronic Current Visit: Yes (11) Pulmonary hypertension Status: Chronic Comment: PA systolic is estimated to be 40-45 on ECHO done 02/04/2019 Current Visit: Yes (12) Mild aortic stenosis Status: Chronic Current Visit: Yes - Allergies/Procedures Done in Hospital Allergies/Adverse Reactions: Allergies clarithromycin [From Biaxin] Allergy (Verified 02/03/19 13:00) Unknown diclofenac [From Voltaren] Adverse Reaction (Verified 02/03/19 13:00) Nausea/Vom/Diarrhea Macrolide Antibiotics Adverse Reaction (Verified 02/03/19 13:00) Chest tightness Procedures: 2-D Echocardiogram - Interpretation Summary The estimated ejection fraction is 55 %. Stage 2 diastolic dysfunction. Trivial tricuspid valve insufficiency. Pulmonary artery systolic pressure is 40-45 mmHg. Mild aortic stenosis. - Type of Care/Length of Stay Estimated LOS: Convalescent Care Less Than 30 days Type of Care Needed: Skilled Rehab Potential: Good Prognosis: Good - Additional Orders/Day of Discharge Additional Orders: He will take both ASA and Plavix for 3 weeks and then the Plavix can be discontinued. Will need Aspirin for the rest of his life. H&P will serve as current which was dated: 02/03/19 Day of Discharge: 02/08/19 - Dietary and Speech Recommendations Dietitian Recommendations/Changes: Recommend 2000 calorie controlled, cardiac, low sodium diet- consistency per [employer]. - Follow Up Care Primary Care Physician: Filipe Simmons MD [Primary Care Provider] -
--- NOTE | 2019-02-08 13:13 | PCM.DC.SUM ---
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 Dysphagia secondary to acute ischemic CVA (Acute) - Secondary Discharge Diagnosis Chronic Problems Iron deficiency anemia (Chronic) Chronic diastolic (congestive) heart failure (Chronic) Grade II diastolic dysfunction (Chronic) Pulmonary hypertension (Chronic) PA systolic is estimated to be 40-45 on ECHO done 02/04/2019 Mild aortic stenosis (Chronic) Benign prostatic hyperplasia (Chronic) Hyperlipidemia (Chronic) Hypertension (Chronic) Venous insufficiency (chronic) (peripheral) (Chronic) Type 2 diabetes mellitus with diabetic polyneuropathy (Chronic) Hospital Course and Treatment Imaging Results: Clinical Impression(s) from Imaging Studies Brain CT 02/03/19 13:17 IMPRESSION: Chronic involutional changes of the brain. Electronically Signed: Janes Nunez MD at 14:37 EDT Tel , Service support , Chest X-Ray 02/03/19 13:35 IMPRESSION: Cardiomegaly. Minimal degree of left basilar atelectasis. Electronically Signed: Enrique David, at 13:54 EDT , Service support , Head/Neck CTA 02/03/19 14:00 IMPRESSION: No occlusion or significant stenosis of the Head and neck vessels Electronically Signed: Janes Nunez MD at 15:20 EDT Tel , Service support , Brain MRI 02/03/19 17:27 IMPRESSION: 3 tiny foci of acute ischemia each measuring about 3 mm with in the brainstem just inferior to the yuan at the level of the fourth ventricle. These areas of ischemia or are within the region for the facial motor nucleus, and abducens nerve, and therefore could be affecting the facial paralysis. at 212 Reported and signed by: Mariano Weber MD Electronically Signed: Mariano Weber MD at 21:25 EDT Tel , Service support , ADDENDUM: 02/03/19 2144 IMPRESSION: 3 tiny foci of acute ischemia each measuring about 3 mm with in the brainstem just inferior to the yuan at the level of the fourth ventricle. These areas of ischemia or are within the region for the facial motor nucleus, and abducens nerve, and therefore could be affecting the facial paralysis. at 2126 Reported and signed by: Mariano Weber MD N.B. : The above information has been verbally conveyed by Mariano Weber MD to Raymond Nowak MD, on 02/03/2019 21:37:13 (ET). Electronically Signed: Mariano Weber MD at 21:25 EDT Tel , Service support , Videofluoroscopic Swallow 02/07/19 13:35 IMPRESSION: Aspiration with ingestion of thin liquids and nectar thick liquids The swallow study findings were discussed with the patient by the speech pathologist at the conclusion of the examination. Please see speech pathology report for more information and recommendations. Electronically Signed: Enrique David, at 14:35 EDT , Service support , Laboratory Results - last 24 hr 02/07/19 02/07/19 02/08/19 19:29 21:28 07:04 Sodium 141 Potassium 3.6 Chloride 105 Carbon Dioxide 28.0 Anion Gap 8 BUN 20 H Creatinine 1.33 H Estim Creat Clear Calc 49.55 Est GFR (MDRD) Af Amer 67 Est GFR (MDRD) Non-Af 56 L BUN/Creatinine Ratio 15.0 Glucose 133 H Calcium 8.6 Magnesium 1.8 POC Glucose 136 H 149 H 02/08/19 11:37 Sodium Potassium Chloride Carbon Dioxide Anion Gap BUN Creatinine Estim Creat Clear Calc Est GFR (MDRD) Af Amer Est GFR (MDRD) Non-Af BUN/Creatinine Ratio Glucose Calcium Magnesium POC Glucose 168 H RESULTS OF THE EVALUATION: MBS The Patient presents with moderate oropharyngeal dysphagia (DSRS: 4; SPS: 5) with grade I and grade IV overt aspiration of thin and nectar thickened liquids secondary to multiple recent pontine infarctions. Dr. Jaleel Naylor-neurology Operations: None Procedures: 2-D Echocardiogram - Interpretation Summary The estimated ejection fraction is 55 %. Stage 2 diastolic dysfunction. Trivial tricuspid valve insufficiency. Pulmonary artery systolic pressure is 40-45 mmHg. Mild aortic stenosis. Summary of Care Provided: The patient is a 73-year-old male with a past medical history of diastolic congestive heart failure, BPH, hyperlipidemia, hypertension, diabetes mellitus type 2, lower extremity venous insufficiency and diabetic peripheral polyneuropathy who was sent to the emergency department at [facility] on 02/03/2019 from [facility] with a complaint of difficulty getting his speech out and trouble ambulating. In the emergency department his initial NIH stroke scale score was 3. He was not a candidate for TPA because his symptoms had started greater than 24 hours prior to admission. CBC was remarkable for a hemoglobin of 10 with an MCV of 79.4 and an increased RDW. Platelets were within normal limits. BUN was 19 and the creatinine was 1.19. Random glucose was 123 and his hemoglobin A1c was 7.8. Serum iron was low at 39 and the TIBC was 362. Iron saturation was 10.8 and his ferritin was 25. Troponin was less than 0.015. TSH was normal. UA had 0-5 WBCs with no bacteria seen. A noncontrasted CT brain showed chronic involutional changes with no acute findings. CTA of the head and neck showed no occlusion or significant stenosis of the head and neck vessels per the radiologist. He was admitted to a monitored bed on PCU with suspected ischemic CVA. Stroke protocol was initiated. 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 He was seen by PT/OT and ST. Echocardiogram showed an ejection fraction of 55% with stage II diastolic dysfunction. He had trivial tricuspid valve insufficiency and the PA pressure was elevated at 40 to 45 mmHg which is consistent with mild pulmonary hypertension. He was seen in consultation by Dr. Naylor from neurology who recommended aspirin and Plavix for 3 weeks and then discontinuation of Plavix with continued lifelong aspirin. On 02/07/2019 he had a modified barium swallow that showed overt aspiration of thin liquids and nectar thick liquids. Speech therapy recommended mechanical soft diet with honey thickened liquids. Direct supervision, chin tuck, reduced bolus and decreased rate of ingestion was recommended. He should also be upright at 90 degrees during p.o. intake and remain upright for 30 to 60 minutes after eating. Meds should be given 1 at a time with lena. On 02/08/2019 he was afebrile and hemodynamically stable. Pulse ox on room air ranged from 93 to 96%. He denied headache, cough, chest pain, lightheadedness, shortness of breath. Blood sugars were well controlled. He was discharged to [facility] for ongoing speech therapy and PT/OT to recover his prior level of function. He was discharged on ferrous sulfate 325 mg along with vitamin C 500 mg twice daily. Occult stool was ordered in the hospital but he did not have a bowel movement after the test was ordered. He should have a Hemoccult stool done at [facility]. Would recheck the CBC in 1 week. Would recheck ferritin in 3 to 4 weeks and if it is not improving would consider intravenous iron supplementation. He did receive iron sucrose while in the hospital. General: Alert, Oriented x3, Cooperative, No apparent distress, Well developed, Well nourished HEENT: Atraumatic, PERRLA, EOMI, Normocephalic Oral: Moist Mucosa, No Gingival or Mucosal Lesions/ Ulcerations Neck: Supple, Negative Carotid Bruits, No Nodes, Trachea Midline Lungs: Clear to auscultation - after a few deep breaths Cardiovascular: Regular rate, Regular Rhythm, Normal S1, Normal S2, No rub noted, No Gallop, - - Telemetry shows normal sinus rhythm with PACs and PVCs. Abdomen: Bowel Sounds Present, Soft, Non Tender, Non-Distended Extremities: No clubbing, No cyanosis, No Calf Tenderness Skin: No rashes, No breakdown Neurological: Cranial nerves II-XII grossly intact, Neuro grossly intact - the right shoulder is chronically painful and he has restricted ROM, - - NIH is 0 Psych/Mental Status: Normal Affect, Appropriate This note was generated with BrightWhistleation software. It may contain incorrect words, spelling, and punctuation that were not noted in checking the note before signing. - Physical Exam Vital Signs Temp Pulse Resp BP Pulse Ox 97.8 F 66 18 129/70 H 96 02/08/19 09:20 02/08/19 09:20 02/08/19 09:20 02/08/19 09:20 02/08/19 09:20 Oxygen Delivery Method Room Air Weight: 262 lb 12.656 oz Body Mass Index (BMI) 37.7 Finger Stick Blood Glucose 174 Intake and Output for Last 24 Hours 02/06/19 02/07/19 02/08/19 23:59 23:59 23:59 Intake Total 1030 / 1030 1270 / 1270 480 / 480 Output Total 400 / 400 Balance 1030 / 1030 1270 / 1270 80 / 80 Laboratory Tests Past 24 Hrs 02/07/19 19:29 Sodium 141 Potassium 3.6 Chloride 105 Carbon Dioxide 28.0 Anion Gap 8 BUN 20 H Creatinine 1.33 H Estim Creat Clear Calc 49.55 Est GFR (MDRD) Af Amer 67 Est GFR (MDRD) Non-Af 56 L BUN/Creatinine Ratio 15.0 Glucose 133 H Calcium 8.6 Magnesium 1.8 POC Glucose 02/08/19 02/08/19 02/07/19 11:37 07:04 21:28 POC Glucose 168 H 149 H 136 H 02/07/19 17:26 POC Glucose 136 H Home Medications: Medications to take at Discharge Albuterol IH (ProAir) [Proair Hfa] 1 puff INHALATION Q4H PRN PRN 02/02/19 Carvedilol [Coreg (Beta Sarah)] 25 mg PO BID 02/02/19 Furosemide [Lasix] 40 mg PO BID 02/02/19 Gabapentin [Neurontin] 100 mg PO QHS 02/02/19 Glipizide [Glipizide ER] 10 mg PO DAILY 02/02/19 Insulin Lispro [Humalog] See Protocol SQ ACHS 02/02/19 Lisinopril [Zestril] 20 mg PO BID 02/02/19 Melatonin 10 mg PO QHS 02/02/19 Metformin HCl 1,000 mg PO BID 02/02/19 Omeprazole 40 mg PO DAILY 02/02/19 Pravastatin [Pravachol] 80 mg PO QHS 02/02/19 Spironolactone [Aldactone] 25 mg PO DAILY 02/02/19 Tamsulosin HCl [Flomax] 0.4 mg PO QHS 02/02/19 Polyethylene Glycol 3350 [Miralax] 17 gm PO DAILY 02/03/19 Ascorbic Acid [Vitamin C] 500 mg PO BID #60 cap 02/08/19 Aspirin [Aspirin, Baby] 81 mg PO DAILY@0800 tab.chew 02/08/19 Clopidogrel Bisulfate [Plavix] 75 mg PO DAILY #21 tab 02/08/19 Ferrous Sulfate 325 mg PO 1200,1700 tab 02/08/19 Nystatin 500,000 unit PO 4X/DAY #200 udc 02/08/19 Following Prescrptions Were Given to Patient: Nystatin 500,000 unit PO 4X/DAY #200 udc Clopidogrel Bisulfate [Plavix] 75 mg PO DAILY #21 tab Ascorbic Acid [Vitamin C] 500 mg PO BID #60 cap Primary Care Physician: Filipe Simmons MD [Primary Care Provider] - Disposition: Senior Living facility Minutes spent on discharge:: 40 Patient Condition:: Stable Medical Necessity - Tobacco Use Smoking Status: Former smoker Tobacco Use: Cigars, Pipe Meaningful Use Info Meaningful Use Diagnoses (Choose all that apply): None applicable Code Visit Inpatient E&M: 34945 Disch Hosp
[2019-02-08] MEDS: Insulin Lispro 100 UNIT/ML INSULN.PEN SC (13:20)
[2019-02-08] MEDS: Ferrous Sulfate 325 MG Tablet PO (13:20)
--- NOTE | 2019-02-08 14:04 | CASEMGMT ---
Patient is ready for discharge. Orders faxed to [facility]. SW had to complete a convalescent as patient was d/c'd from [facility] per Michaelle. SUMI spoke with Michaelle and their van can pick patient up, but they are on their way to the hospital right now. SW notified RN and HEAD OF BUSINESS DEVELOPMENT will get patient ready and down to the main entrance. SUMI called patient's son, Nnamdi and left him a voice mail letting him know patient is being discharged back to [facility] today and that he is leaving in about 15-20 min. Plan: d/c back to [facility] under skilled level of care on a convalescent stay. [facility] van picked patient up. Jeanette HODGES MSW
--- NOTE | 2019-02-08 14:17 | NURSING ---
REPORT CALLED TO NASIR WHITTINGTON AT [facility]
--- NOTE | 2019-02-08 15:10 | PN.NEURO_ITS ---
Subjective: No issues overnight. Care discussed with the hospitalist team. Patient lives in a care home. - Physical Exam General: Alert HEENT: Normocephalic Neck: Supple Lungs: Normal air movement Cardiovascular: Normal S1, Normal S2 Abdomen: Bowel Sounds Present Extremities: No cyanosis Neurological: - - Conscious, alert, CN II through XII grossly intact, power left upper and lower extreme 5 x 5 right lower extremity 5 x 5, right upper extremity has chronic shoulder issues and has difficulty raising, no cerebellar signs at present, no sensory loss at present, gait deferred, reflexes + B/L B/S/T/K/A, NIHSS 0 at present, mRS 3 at baseline Psych/Mental Status: Normal Affect Vital Signs Temp Pulse Resp BP Pulse Ox 97.8 F 66 18 129/70 H 96 02/08/19 09:20 02/08/19 09:20 02/08/19 09:20 02/08/19 09:20 02/08/19 09:20 Oxygen Delivery Method Room Air Weight: 119.2 kg Body Mass Index (BMI) 37.7 Finger Stick Blood Glucose 174 Intake and Output for Last 24 Hours 02/06/19 02/07/19 02/08/19 23:59 23:59 23:59 Intake Total 1030 / 1030 1270 / 1270 480 / 480 Output Total 400 / 400 Balance 1030 / 1030 1270 / 1270 80 / 80 Laboratory Tests Past 24 Hrs 02/07/19 19:29 Sodium 141 Potassium 3.6 Chloride 105 Carbon Dioxide 28.0 Anion Gap 8 BUN 20 H Creatinine 1.33 H Estim Creat Clear Calc 49.55 Est GFR (MDRD) Af Amer 67 Est GFR (MDRD) Non-Af 56 L BUN/Creatinine Ratio 15.0 Glucose 133 H Calcium 8.6 Magnesium 1.8 POC Glucose 02/08/19 02/08/19 02/07/19 11:37 07:04 21:28 POC Glucose 168 H 149 H 136 H 02/07/19 17:26 POC Glucose 136 H Medical Necessity - Tobacco Use Smoking Status: Former smoker Tobacco Use: Cigars, Pipe Assessment/Plan All Active Problems Dysphagia (Acute) Delayed wound healing (Resolved) 73-year male with PMH HTN, HLD, DM, DM neuropathy, CHF and BPH admitted with speech disturbances and weakness/difficulty walking along with left facial weakness, found to have 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 once daily. Dual antiplatelet for 3 weeks followed by single antiplatelet with aspirin. Bleeding risk discussed in detail with patient ?On Pravachol ?MRI brain images reviewed?likely bilateral medial medullary acute infarct and inferior right pontine infarct, per radiology report acute ischemia present within the medulla at the level of the fourth ventricle below the yuan ?CTA head/neck images reviewed and there is likely mid to proximal basilar artery stenosis but per radiology read no hemodynamically significant stenosis or occlusion ?TTE EF 55%, normal LA size, no Doppler evidence of ASD ?HbA1c 7.8, LDL 67 ?Avoid hypotension ?Long-term goal blood pressure less than 130/80 mmHg and goal HbA1c less than 7% ?Stroke risk factors discussed in detail and stroke education provided ?Recommend 30-day event recorder on discharge. ?PT/OT/ST ?Fall precautions ?GI/DVT prophylaxis ?Further medical management per hospitalist team ?Follow-up with neurology as outpatient in 4 weeks ?Please call with questions if any ?Thank you for allowing us to participate in patient's care and management This note has been generated using [employer] dictation software. It may contain incorrect words, spellings and punctuation's which were not noted in the review of the note prior to signing.
== END 2019-02-08 14:12 | disposition skilled nursing facility (03) | DRG 65 ==
LOC: ED 14:02 → PCU 15:55
PROVIDERS: Hospitalist; Admitting Provider Hospitalist; Emergency Provider Emergency Medicine; Family Provider Family Medicine; PCP Family Medicine; Visit Provider Internal Medicine
DX: I63.9 Cerebral infarction, unspecified (principal); I50.32 Chronic diastolic (congestive) heart failure; R13.12 Dysphagia, oropharyngeal phase; R29.810 Facial weakness; R47.1 Dysarthria and anarthria; R29.703 NIHSS score 3; I87.2 Venous insufficiency (chronic) (peripheral); E11.42 Type 2 diabetes mellitus with diabetic polyneuropathy; N40.0 Benign prostatic hyperplasia without lower urinary tract symptoms; I11.0 Hypertensive heart disease with heart failure; E78.5 Hyperlipidemia, unspecified; D50.9 Iron deficiency anemia, unspecified; I27.20 Pulmonary hypertension, unspecified; I35.0 Nonrheumatic aortic (valve) stenosis; Z87.891 Personal history of nicotine dependence; Z79.4 Long term (current) use of insulin; R60.0 Localized edema
CPT/HCPCS: 36415; 70450; 70496; 70498; 70551; 71045; 71046; 74230; 80048; 80061; 81001; 82728; 82962; 83036; 83540; 83550; 83735; 83880; 84443; 84484; 85025; 85610; 85730; 92526; 92610; 92611; 93005; 93306; 97110; 97163; 97166; 97530; 97535; 99285; J1756; J7030; Q9957; Q9967; A4216

== ENCOUNTER 2019-07-04 15:20 | Inpatient (IN) | payer MEDICARE, MEDICAID, SELFPAY ==
[2019-07-04] VITALS (14 sets, daily range): BP systolic 118–146; BP diastolic 60–96; PULSE 74–90; RESP 18–23; TEMP 36.6–37.1; O2SAT 93–98; BMI 39.9; BMI 37.3
--- NOTE | 2019-07-04 15:35 | EKG12_ITS ---
Test Reason : DYSRHYTHMIA Blood Pressure : / mmHG Vent. Rate : 074 BPM Atrial Rate : 074 BPM P-R Int : 200 ms QRS Dur : 090 ms QT Int : 402 ms P-R-T Axes : 071 -10 038 degrees QTc Int : 446 ms Normal sinus rhythm Poor R wave progression Confirmed by CINTHYA DEL VALLE, DANY ([id number]), publishing editor ALTON ADLER ([id number]) on 07/06/2019 9:16:43 AM Referred By: Reilly Trejo Confirmed By:DANY MENDES MD
--- NOTE | 2019-07-04 15:35 | CT_ITS ---
STUDY: CT ABDOMEN AND PELVIS WITHOUT CONTRAST REASON FOR EXAM: Male, 74 years old. ABDOMINAL PAIN/DISTENTION,BILAT LEG EDEMA -- CHF,HTN,DIAB RADIATION DOSAGE (If Supplied By Facility): CTDIvol = ( 32.27 ) mGy, DLP = ( 1773.80 ) mGycm TECHNIQUE: Transaxial images were obtained from the dome of the diaphragm to the symphysis pubis without oral contrast, and without intravenous contrast. Sagittal and coronal images were reconstructed. Individualized dose optimization techniques were used for this CT. COMPARISON: None. FINDINGS: The visualized lung bases are unremarkable. Mild cardiomegaly Normal liver. Normal gallbladder and extrahepatic biliary system. Normal spleen. Normal pancreas. Normal bilateral adrenal glands. Mild bilateral hydronephrosis and hydroureter. Mild atrophy of the kidneys. There is a small hiatal hernia. Normal small intestine. Normal colon. There is non-visualization of the appendix. Normal abdominal aorta. Normal inferior vena cava. Normal retroperitoneum. Significant distention of the bladder compatible with urinary retention. Prostate size appears within normal limits Normal abdominal wall. There are diffuse degenerative changes of the visualized lumbar spine. Right hip arthroplasty CT/Abdomen/Pelvis without Cont IMPRESSION: Urinary retention with significant distention of the urinary bladder. There is associated mild bilateral hydronephrosis and hydroureter Electronically Signed: Juan Diego Solano DO at 16:50 EST Tel , Service support ,
--- NOTE | 2019-07-04 15:38 | ED.DCSUM_ITS ---
History of Present Illness Chief Complaint: Edema Detail of Chief Complaint: Edema, abdominal distention, elevated BUN and creatinine Informant: Patient, SNF Narrative: Patient is brought in from [facility]. Patient has no complaints and does not know why he was brought in. Per nursing report staff at the [facility] had noted increased swelling and thought his abdomen seem to be distended. Patient reports having normal bowel movements. He denies abdominal pain. He states he has not had much of an appetite but is eating. There is also reports that patient's BUN and creatinine had recently increased. - Past Medical History (1) Dysphagia Status: Chronic (2) Benign prostatic hyperplasia Status: Chronic (3) Chronic diastolic (congestive) heart failure Status: Chronic (4) Hyperlipidemia Status: Chronic (5) Hypertension Status: Chronic (6) Iron deficiency anemia Status: Chronic (7) Mild aortic stenosis Status: Chronic (8) Pulmonary hypertension Status: Chronic Comment: PA systolic is estimated to be 40-45 on ECHO done 02/04/2019 (9) Type 2 diabetes mellitus with diabetic polyneuropathy Status: Chronic (10) Venous insufficiency (chronic) (peripheral) Status: Chronic Past Medical History - Allergies and Home Meds Allergies/Adverse Reactions: Allergies clarithromycin [From Biaxin] Allergy (Verified 07/04/19 15:56) Unknown diclofenac [From Voltaren] Adverse Reaction (Verified 07/04/19 15:56) Nausea/Vom/Diarrhea Macrolide Antibiotics Adverse Reaction (Verified 07/04/19 15:56) Chest tightness Primary Care Physician: Filipe Simmons MD [Primary Care Provider] - Prior records reviewed: Yes Surgical History: appendectomy, herniorrhaphy, total hip arthroplasty, total knee arthroplasty, - - Shoulder repair. Lives: Detention Smoking Status: Former smoker - Family History Maternal Family History: Reports: No pertinent history Paternal Family History: Reports: No pertinent history Review of Systems General: Denies: Chills, Fever Eyes: Denies: Visual changes - bilaterally ENT: Denies: Bilateral ear pain Cardiovascular: Denies: Chest pain Respiratory: Denies: Dyspnea, Cough Gastrointestinal: Denies: Abdominal pain, Nausea, Vomiting, Diarrhea Musculoskeletal: Reports: Swelling. Denies: Extremity Pain Skin: Denies: Rash Neurological: Denies: Headache Physical Exam Vital Signs/Narrative: Vital Signs Temp Pulse Resp BP Pulse Ox 07/04/19 15:22 98.3 F 74 18 125/63 H 96 Inital Vital Signs reviewed: Yes General: Well nourished, Well developed Head: Normocephalic ENT: Moist mucous membranes Neck: Supple Cardiovascular: Regular rate, Regular rhythm Respiratory: No distress, CTA bilaterally Abdomen: Soft, Nontender, - - Abdomen is distended but no focal tenderness noted. Bowel sounds are present. Extremities: - - Patient has wraps in place over his lower extremities that he states was just placed within the last day. Thighs reveal only mild edema. No erythema or skin changes. Neurological: Alert, Oriented x3 Psychological: Normal affect Diagnostic/Tx/Re-eval Impressions Abdomen/Pelvis CT 07/04/19 15:35 IMPRESSION: Urinary retention with significant distention of the urinary bladder. There is associated mild bilateral hydronephrosis and hydroureter Electronically Signed: Juan Diego Solano DO at 16:50 EST Tel , Service support , 07/04/19 15:35 Abdomen/Pelvis without Cont [CT] Stat Laboratory Results 07/04/19 07/04/19 07/04/19 15:45 15:45 15:45 WBC 8.2 RBC 2.22 L Hgb 6.1 L Hct 20.5 L MCV 92.3 MCH 27.5 MCHC 29.8 L RDW Std Deviation 52.2 H RDW Coeff of Kael 15.5 H Plt Count 281 MPV 10.1 Immature Gran % (Auto) 0.200 Neut % (Auto) 71.9 H Lymph % (Auto) 14.9 L [place] % (Auto) 10.0 Eos % (Auto) 2.8 Baso % (Auto) 0.2 Absolute Neuts (auto) 5.9 Absolute Lymphs (auto) 1.22 Nucleated RBC % 0 Sodium 142 Potassium 4.7 Chloride 108 H Carbon Dioxide 30.0 Anion Gap 4 L BUN 86 H Creatinine 2.97 H Estim Creat Clear Calc 22.54 Est GFR (MDRD) Af Amer 27 L Est GFR (MDRD) Non-Af 22 L BUN/Creatinine Ratio 29.0 H Glucose 64 L Calcium 9.1 B-Natriuretic Peptide 58.8 Urine Color Urine Clarity Urine pH Ur Specific [place] Urine Protein Urine Glucose (UA) Urine Ketones Urine Occult Blood Urine Nitrite Urine Bilirubin Urine Urobilinogen Ur Leukocyte Esterase Urine RBC Urine WBC Ur Squamous Epith Cells Urine Bacteria Urine Mucus Crossmatch 07/04/19 07/04/19 16:20 16:47 WBC RBC Hgb Hct MCV MCH MCHC RDW Std Deviation RDW Coeff of Kael Plt Count MPV Immature Gran % (Auto) Neut % (Auto) Lymph % (Auto) [place] % (Auto) Eos % (Auto) Baso % (Auto) Absolute Neuts (auto) Absolute Lymphs (auto) Nucleated RBC % Sodium Potassium Chloride Carbon Dioxide Anion Gap BUN Creatinine Estim Creat Clear Calc Est GFR (MDRD) Af Amer Est GFR (MDRD) Non-Af BUN/Creatinine Ratio Glucose Calcium B-Natriuretic Peptide Urine Color Yellow Urine Clarity Clear Urine pH 5.0 Ur Specific [place] 1.015 Urine Protein Negative Urine Glucose (UA) Normal Urine Ketones Negative Urine Occult Blood Negative Urine Nitrite Negative Urine Bilirubin Negative Urine Urobilinogen Normal Ur Leukocyte Esterase 25 H Urine RBC 0-5 SEEN Urine WBC 0-5 SEEN Ur Squamous Epith Cells 0 SEEN Urine Bacteria 0 SEEN Urine Mucus 0 SEEN Crossmatch See Detail - EKG Initial EKG Interpretation: Sinus Rhythm - Sinus at 74 with no acute ischemia. - Medical Decision Making Upon completion of the CAT scan, Gomez catheter was placed with greater than 3 L of urine return. We rolled the patient to do a rectal exam as he was noted to be quite anemic. Patient had dark brown charcoal stool that is consistent with GI bleed. Patient is been ordered 2 units of blood. He is DNR comfort care and is already stated he would not want dialysis. He is not sure if he wants a colonoscopy. At this point he will be admitted for blood transfusion. ED Disposition - Plan for ED Patient: Disposition: Acute Care Hospital [facility] Diagnosis: Renal failure, Urinary retention, GI bleed, Anemia Referrals: Filipe Simmons MD [Primary Care Provider] -
[2019-07-04 16:00] LABS: Absolute Lymphocyte Count 1.22 X10^3/uL (0.83-4.51); Absolute Neutrophil Count 5.9 X10^3/uL (2.0-7.7); Basophil# 0.02 X10^3/uL; Basophil% 0.2 % (0-1); Eosinophil# 0.23 X10^3/uL; Eosinophils% 2.8 % (0-5); Hematocrit 20.5 % (40-54); Hemoglobin 6.1 g/dL (13.0-16.5); Lymphocyte # 1.22 X10^3/ul (4.0); Lymphocyte % 14.9 % (19-41); Mean Corp Hgb Conc 29.8 g/dL (32-36); Mean Corpuscular Hgb 27.5 pg (27.0-32.0); Mean Corpuscular Volume 92.3 fL (80-94); Mean Platelet Vol. 10.1 fl (6.2-12.0); Monocyte# 0.82 X10^3/uL; NRBC Flagged by Analyzer 0 % (0-5); Neutrophil # 5.86 X10^3/uL (2.7-7.7); Neutrophil % 71.9 % (47-70); Platelet Count 281 K/mm3 (150-450); RBC Distribution Width CV 15.5 % (11.6-14.6); RBC Distribution Width SD 52.2 fl (35.1-43.9); Red Blood Count 2.22 M/mm3 (4.6-6.2); White Blood Count 8.2 K/mm3 (4.4-11.0)
[2019-07-04 16:08] LABS: Anion Gap 4 (5-15); BUN 86 mg/dL (7-18); Calcium,Total 9.1 mg/dL (8.5-10.1); Chloride 108 mmol/L (98-107); Creatinine, Serum 2.97 mg/dL (0.70-1.30); EST Glomerular Filtration Rate 22 mL/min (>60); Est Glom Filt Rate - Afr Amer 27 mL/min (>60); Estimated Creatinine Clearance 22.54 ml/min; Glucose 64 mg/dL (74-106); Potassium 4.7 mmol/L (3.5-5.1); Sodium Level 142 mmol/L (136-145)
[2019-07-04 16:53] LABS: Bacteria 0 SEEN /hpf (None Seen); Mucous, Urine 0 SEEN /hpf (<or=2+); Squamous Epithelial Cells - UA 0 SEEN /hpf (0-5)
[2019-07-04 17:03] LABS: Color, Urine Yellow (Yellow); Glucose, Dipstick Normal (Normal); Ketone-Dipstick Negative (Negative); Leukocyte Esterase-Dipstick 25 /ul (Negative); Nitrite-Dipstick Negative (Negative); Occult Blood-Urine Negative /ul (Negative); Protein-Dipstick Negative (Negative); Specific Gravity, Urine 1.015 (1.002-1.030); Urine Bilirubin Dipstick Negative (Negative); Urine Clarity Clear (Clear); Urine Urobilinogen Normal (Normal)
[2019-07-04 17:11] LABS: Red Blood Cells-Urine 0-5 SEEN /hpf (0-5); White Blood Cells 0-5 SEEN /hpf (0-5)
[2019-07-04 17:19] LABS: BNP,B-Type NATRIURETIC PEPTIDE 58.8 pg/mL (0-100)
--- NOTE | 2019-07-04 17:39 | NURSING ---
MED SURG JAYLEEN GI BLEED, ANEMIA, RENAL FAILURE, URINARY RETENTION
--- NOTE | 2019-07-04 18:24 | HP.PCM_ITS ---
History of Present Illness Date of Admission: 07/04/19 Chief Complaint: GI bleed and abdominal distention The patient is a 74 year old M with a PMH as below who presents from the half-way with abdominal distention, worsening leg edema, worsening renal failure, and possibly a GI bleed. He states that he does know why he is here he felt fine however per report from the ED physician the nurses felt that his abdominal distention was getting worse and he had had labs done recently that showed that he was having worsening renal failure. When they transferred him to the ER he was also found to have a hemoglobin of 6.1 with dark tarry stools. There was an initial stool test done however it was sent to the lab before the test was actually performed and therefore it was read as falsely negative. He does not feel weak and says that he feels fine and wants to go back home, he says that he would not want to have dialysis ever done and he is a DNR CC, I discussed with him the possibility to do an EGD and a colonoscopy to further evaluate this bleeding, given that it is not acute he could probably have it done as an outpatient, he says that he would think about it and discuss with his sons. Also he had a Gomez placed because a CT scan of his abdomen pelvis showed a distended bladder with hydroureter and hydronephrosis, he had about 3-1/2 L out with placement of the Gomez. Past Medical History Past Medical History (Chronic Problems): Chronic Problems Iron deficiency anemia (Chronic) Dysphagia (Chronic) Chronic diastolic (congestive) heart failure (Chronic) Grade II diastolic dysfunction (Chronic) Pulmonary hypertension (Chronic) PA systolic is estimated to be 40-45 on ECHO done 02/04/2019 Mild aortic stenosis (Chronic) Benign prostatic hyperplasia (Chronic) Hyperlipidemia (Chronic) Hypertension (Chronic) Venous insufficiency (chronic) (peripheral) (Chronic) Type 2 diabetes mellitus with diabetic polyneuropathy (Chronic) Allergies clarithromycin [From Biaxin] Allergy (Verified 07/04/19 15:56) Unknown diclofenac [From Voltaren] Adverse Reaction (Verified 07/04/19 15:56) Nausea/Vom/Diarrhea Macrolide Antibiotics Adverse Reaction (Verified 07/04/19 15:56) Chest tightness Home Medications: Ambulatory Orders Medication Instructions Recorded Carvedilol [Coreg (Beta Sarah)] 25 mg PO BID 02/02/19 Furosemide [Lasix] 40 mg PO BID@0800,1200 02/02/19 Glipizide [Glipizide ER] 10 mg PO DAILY 02/02/19 Insulin Lispro [Humalog] See Protocol SQ ACHS 02/02/19 Lisinopril [Zestril] 20 mg PO BID 02/02/19 Spironolactone [Aldactone] 25 mg PO DAILY 02/02/19 Tamsulosin HCl [Flomax] 0.4 mg PO QHS 02/02/19 Ascorbic Acid [Vitamin C] 500 mg PO BID 07/04/19 Aspirin [Aspirin, Baby] 81 mg PO DAILY@0800 07/04/19 Escitalopram Oxalate [Lexapro] 10 mg PO DAILY 07/04/19 Ferrous Sulfate 325 mg PO BID 07/04/19 Metolazone 5 mg PO DAILY 07/04/19 Mirtazapine 7.5 mg PO QHS 07/04/19 Pantoprazole Sodium [Protonix] 20 mg PO DAILY 07/04/19 Pramipexole Di-HCl [Mirapex] 0.125 mg PO QHS 07/04/19 Sennosides/Docusate Sodium [Senna 2 tab PO QHS 07/04/19 Plus 8.6-50 mg Tablet] Surgical History: appendectomy, herniorrhaphy, total hip arthroplasty, total knee arthroplasty, - - Shoulder repair. Psychiatric History: No pertinent psych hx Lives: Long Term Smoking Status: Former smoker Tobacco Use: Cigarettes Alcohol: None Drugs: None - *Family History Maternal History Items: Dementia Paternal History Items: - - in World War II Review of Systems Constitutional: Denies: Chills, Fever, Weight Change HEENT: Denies: Head Aches, Sinus Congestion, Sinus Drainage Cardiovascular: Reports: Edema. Denies: Chest Pain, Palpitations Respiratory: Denies: Cough, Shortness of breath at rest, Sputum production Gastrointestinal: Denies: Abdominal Pain, Nausea, Vomiting Genitourinary: Denies: Dysuria Musculoskeletal: Denies: Joint Pain, Joint Tenderness Skin: Denies: Rash, Wounds Neurological: Denies: Numbness, Tingling, Focal weakness Psychiatric: Denies: Anxiety, Depression, Homicidal Ideations, Suicidal Ideations Hematologic/ Lymphatic: Denies: Easy Bruising, Easy Bleeding VTE Information - Inpt Only VTE Present on Admission: No Patient Problems: Active and Suspected Problems Renal failure (Acute) Urinary retention (Acute) GI bleed (Acute) Anemia (Acute) - Physical Exam Vitals/I&O's: Vital Signs Temp Pulse Resp BP Pulse Ox 98.0 F 82 23 H 123/60 H 95 07/04/19 18:19 07/04/19 18:19 07/04/19 18:19 07/04/19 18:19 07/04/19 18:19 Oxygen Delivery Method Room Air Weight: 286 lb 2.56 oz Body Mass Index (BMI) 39.9 Finger Stick Blood Glucose 174 Intake and Output for Last 24 Hours 07/02/19 07/03/19 07/04/19 23:59 23:59 23:59 Intake Total 0 / 0 Balance 0 / 0 General: Alert, Oriented x3, Cooperative, No apparent distress HEENT: Atraumatic, PERRLA, EOMI, Normocephalic Oral: Moist Mucosa Neck: Supple, No JVD Lungs: Clear to auscultation, Normal air movement, No rhonchi, No wheeze, No rales, Diminished Cardiovascular: Regular rate, Regular Rhythm, Normal S1, Normal S2, No murmurs Abdomen: Soft, Non Tender, Non-Distended, No Hepato-splenomegaly Extremities: Capillary Refill Less than 3 Seconds, Edema - 1-2+ pitting edema Skin: No rashes, No breakdown Neurological: Neuro grossly intact, Sensory exam intact to light touch and pain Psych/Mental Status: Normal Affect, Appropriate Microbiology Past 72 Hours 07/04/19 16:20 Stool Stool Occult Blood (QUAN) - Final Laboratory Results 07/04/19 15:45: WBC 8.2, RBC 2.22 L, Hgb 6.1 L, Hct 20.5 L, MCV 92.3, MCH 27.5, MCHC 29.8 L, RDW Std Deviation 52.2 H, RDW Coeff of Kael 15.5 H, Plt Count 281, MPV 10.1, Immature Gran % (Auto) 0.200, Neut % (Auto) 71.9 H, Lymph % (Auto) 14.9 L, [place] % (Auto) 10.0, Eos % (Auto) 2.8, Baso % (Auto) 0.2, Absolute Neuts (auto) 5.9, Absolute Lymphs (auto) 1.22, Nucleated RBC % 0 07/04/19 15:45: Sodium 142, Potassium 4.7, Chloride 108 H, Carbon Dioxide 30.0, Anion Gap 4 L, BUN 86 H, Creatinine 2.97 H, Estim Creat Clear Calc 22.54, Est GFR (MDRD) Af Amer 27 L, Est GFR (MDRD) Non-Af 22 L, BUN/Creatinine Ratio 29.0 H , Glucose 64 L, Calcium 9.1 07/04/19 15:45: B-Natriuretic Peptide 58.8 07/04/19 16:20: Blood Type A POSITIVE, Antibody Screen NEGATIVE, Crossmatch See Detail 07/04/19 16:47: Urine Color Yellow, Urine Clarity Clear, Urine pH 5.0, Ur Specific [place] 1.015, Urine Protein Negative, Urine Glucose (UA) Normal, Urine Ketones Negative, Urine Occult Blood Negative, Urine Nitrite Negative, Urine Bilirubin Negative, Urine Urobilinogen Normal, Ur Leukocyte Esterase 25 H, Urine RBC 0-5 SEEN, Urine WBC 0-5 SEEN, Ur Squamous Epith Cells 0 SEEN, Urine Bacteria 0 SEEN, Urine Mucus 0 SEEN Assessment/Plan All Active Problems Renal failure (Acute) Urinary retention (Acute) GI bleed (Acute) Anemia (Acute) Delayed wound healing (Resolved) 1. GI bleed/acute renal failure secondary to urinary retention/iron deficiency anemia -He also noticed worsening edema this is likely related to his urinary retention and his renal failure -We will continue with his Gomez as well as his home Flomax, he will likely need this to remain in until he can follow-up with urologist as an outpatient -Repeat BMP in the morning -He is getting 2 units of packed red blood cells, will provide him a dose of Lasix 40 mg IV between the units given his history of pulmonary hypertension -We will hold his aspirin and place him on SCDs, will hold off on consulting g eneral surgery as this bleed is likely not acute -We will start him on IV Protonix 40 mg twice daily, he is on 20 mg at home this can likely be increased at discharge -Continue with his p.o. iron 2. HTN/pulmonary hypertension/chronic diastolic CHF -Because he has acute renal failure we will hold off of his diuretics right now, if he does have significant improvement tomorrow with Gomez placement can likely restart his Lasix and his metolazone -We will hold his lisinopril, can continue with his Aldactone 3. Anxiety/depression -Stable -Continue with Lexapro and Remeron 4. DM 2 -We will hold his glipizide but continue with a sliding scale insulin -Accu-Cheks AC at bedtime DVT: SCDs Code Visit Inpatient E&M: 06024 Init Hosp L3
[2019-07-04] MEDS: 0.9% Saline Lock 10 ML Syringe IV (21:00)
[2019-07-04] MEDS: Furosemide 40 MG/4 ML Vial IV (21:00)
[2019-07-04] MEDS: Pramipexole Di-HCl 0.125 MG Tablet PO (22:38)
[2019-07-04] MEDS: Tamsulosin HCl 0.4 MG Capsule PO (22:38)
[2019-07-04] MEDS: Carvedilol 25 MG Tablet PO (22:38)
[2019-07-04] MEDS: Nystatin Powder 15gm Bottle 1 APPLIC TOPICAL (23:15)
[2019-07-04 23:16] LABS: Bedside Glucose 66 mg/dL (70-110)
[2019-07-04 23:56] LABS: Bedside Glucose 72 mg/dL (70-110)
[2019-07-05] VITALS (20 sets, daily range): BP systolic 97–140; BP diastolic 43–66; PULSE 68–91; RESP 18–20; TEMP 36.2–38.3; O2SAT 94–98
[2019-07-05] MEDS: 0.9% Saline Lock 10 ML Syringe IV ×3 (00:18→17:35)
[2019-07-05 04:44] LABS: Absolute Neutrophil Count 6.3 X10^3/uL (2.0-7.7); Basophil# 0.02 X10^3/uL; Basophil% 0.2 % (0-1); Eosinophil# 0.22 X10^3/uL; Eosinophils% 2.6 % (0-5); Hematocrit 22.1 % (40-54); Hemoglobin 6.9 g/dL (13.0-16.5); Lymphocyte % 11.9 % (19-41); Mean Corp Hgb Conc 31.2 g/dL (32-36); Mean Corpuscular Hgb 27.4 pg (27.0-32.0); Mean Corpuscular Volume 87.7 fL (80-94); Mean Platelet Vol. 9.3 fl (6.2-12.0); Monocyte# 0.86 X10^3/uL; Monocyte% 10.2 % (0-10); NRBC Flagged by Analyzer 0 % (0-5); Neutrophil # 6.29 X10^3/uL (2.7-7.7); Neutrophil % 74.6 % (47-70); Platelet Count 245 K/mm3 (150-450); RBC Distribution Width CV 16.7 % (11.6-14.6); RBC Distribution Width SD 54.2 fl (35.1-43.9); Red Blood Count 2.52 M/mm3 (4.6-6.2); White Blood Count 8.4 K/mm3 (4.4-11.0)
[2019-07-05 04:58] LABS: Anion Gap 8 (5-15); BUN 72 mg/dL (7-18); BUN/Creat Ratio 27.5 RATIO (10-20); Calcium,Total 8.6 mg/dL (8.5-10.1); Chloride 104 mmol/L (98-107); Creatinine, Serum 2.62 mg/dL (0.70-1.30); EST Glomerular Filtration Rate 25 mL/min (>60); Est Glom Filt Rate - Afr Amer 31 mL/min (>60); Estimated Creatinine Clearance 25.55 ml/min; Glucose 72 mg/dL (74-106); Potassium 4.2 mmol/L (3.5-5.1); Sodium Level 140 mmol/L (136-145)
[2019-07-05] MEDS: Acetaminophen 325 MG Tablet 650 MG PO (06:24)
[2019-07-05 06:41] LABS: Bedside Glucose 74 mg/dL (70-110)
[2019-07-05 08:26] LABS: Bedside Glucose 83 mg/dL (70-110)
[2019-07-05] MEDS: Furosemide 40 MG/4 ML Vial IV (10:47)
[2019-07-05] MEDS: Spironolactone 25 MG Tablet PO (10:50)
[2019-07-05] MEDS: Nystatin Powder 15gm Bottle 1 APPLIC TOPICAL ×2 (10:50→21:43)
[2019-07-05] MEDS: Carvedilol 25 MG Tablet PO ×2 (10:50→21:43)
[2019-07-05 12:10] LABS: Bedside Glucose 170 mg/dL (70-110)
--- NOTE | 2019-07-05 12:25 | US_ITS ---
STUDY: RENAL ULTRASOUND - COMPLETE REASON FOR EXAM: Male, 74 years old. ARF TECHNIQUE: Ultrasound evaluation of the kidneys was performed with real-time and static fischer-scale imaging. COMPARISON: None. FINDINGS: RIGHT KIDNEY: Normal location of the right kidney, which is normal in size. The right kidney measures 12.8 x 5.5 x 6.8 cm. There is a normal cortex of the right kidney. The renal cortex measures 1.5 cm. There is a 9 mm cyst. There are no right renal calculi. There is no right hydronephrosis. DISTAL RIGHT URETER: There is non-visualization of the distal right ureter. LEFT KIDNEY: Normal location of the left kidney, which is normal in size. The left kidney measures 14.7 x 5.3 x 6.2 cm. There is a normal cortex of the left kidney. The renal cortex measures 1.6 cm. There are cysts up to 2.3 cm. There are no left renal calculi. There is no left hydronephrosis. DISTAL LEFT URETER: There is non-visualization of the distal left ureter. BLADDER: The decompressed urinary bladder has a a Gomez catheter. US/Kidney and Bladder IMPRESSION: Cysts of the kidneys. Electronically Signed: Иван Cabrera DO at 23:49 EST Tel [phone], Service support ,
--- NOTE | 2019-07-05 12:41 | PCM.PROGNOTE ---
<Poonam Rios - Last Filed: 07/05/19 12:59> Patient Problems: Active and Suspected Problems Renal failure (Acute) Urinary retention (Acute) GI bleed (Acute) Anemia (Acute) Subjective: Patient seen and examined. Drowsy this morning. Denies pain. Discussed plan of care with patient. He states he does not want any aggressive medical care and would like to focus more on comfort measures. - Physical Exam Vitals/I&O's: Vital Signs Temp Pulse Resp BP Pulse Ox 97.9 F 78 20 H 114/58 L 94 07/05/19 11:29 07/05/19 11:29 07/05/19 11:29 07/05/19 11:29 07/05/19 11:29 Oxygen Flow Rate (L/min) 2 Oxygen Delivery Method Nasal Cannula Weight: 267 lb 3.204 oz Body Mass Index (BMI) 37.3 Finger Stick Blood Glucose 174 Intake and Output for Last 24 Hours 07/03/19 07/04/19 07/05/19 23:59 23:59 23:59 Intake Total 510 / 1470 1989 Output Total 4050 / 4050 Balance 510 / -530 -2059 / -2059 General: Oriented x3, Cooperative, - - Drowsy HEENT: Atraumatic, PERRLA, EOMI, Normocephalic Oral: Dry Mucosa Neck: Supple, No JVD, Negative Carotid Bruits Lungs: Clear to auscultation, Normal air movement Cardiovascular: Regular rate, Regular Rhythm, Normal S1, Normal S2, No murmurs Abdomen: Bowel Sounds Present, Soft, Non Tender, Non-Distended Extremities: No clubbing, No cyanosis, Edema - +2 bilateral lower extremity edema Skin: No rashes, No breakdown Musculoskeletal: No Tenderness to Palpation of Joints or Extremities Neurological: Cranial nerves II-XII grossly intact, Neuro grossly intact Psych/Mental Status: Normal Affect, Appropriate Microbiology Past 72 Hours 07/04/19 16:20 Stool Stool Occult Blood (QUAN) - Final Laboratory Results 07/04/19 15:45: WBC 8.2, RBC 2.22 L, Hgb 6.1 L, Hct 20.5 L, MCV 92.3, MCH 27.5, MCHC 29.8 L, RDW Std Deviation 52.2 H, RDW Coeff of Kael 15.5 H, Plt Count 281, MPV 10.1, Immature Gran % (Auto) 0.200, Neut % (Auto) 71.9 H, Lymph % (Auto) 14.9 L, [place] % (Auto) 10.0, Eos % (Auto) 2.8, Baso % (Auto) 0.2, Absolute Neuts (auto) 5.9, Absolute Lymphs (auto) 1.22, Nucleated RBC % 0 07/04/19 15:45: Sodium 142, Potassium 4.7, Chloride 108 H, Carbon Dioxide 30.0, Anion Gap 4 L, BUN 86 H, Creatinine 2.97 H, Estim Creat Clear Calc 22.54, Est GFR (MDRD) Af Amer 27 L, Est GFR (MDRD) Non-Af 22 L, BUN/Creatinine Ratio 29.0 H, Glucose 64 L, Calcium 9.1 07/04/19 15:45: B-Natriuretic Peptide 58.8 07/04/19 16:20: Blood Type A POSITIVE, Antibody Screen NEGATIVE, Crossmatch See Detail 07/04/19 16:25: Crossmatch See Detail 07/04/19 16:47: Urine Color Yellow, Urine Clarity Clear, Urine pH 5.0, Ur Specific [place] 1.015, Urine Protein Negative, Urine Glucose (UA) Normal, Urine Ketones Negative, Urine Occult Blood Negative, Urine Nitrite Negative, Urine Bilirubin Negative, Urine Urobilinogen Normal, Ur Leukocyte Esterase 25 H, Urine RBC 0-5 SEEN, Urine WBC 0-5 SEEN, Ur Squamous Epith Cells 0 SEEN, Urine Bacteria 0 SEEN, Urine Mucus 0 SEEN 07/04/19 22:46: POC Glucose 66 L 07/04/19 23:50: POC Glucose 72 07/05/19 04:34: WBC 8.4, RBC 2.52 L, Hgb 6.9 L, Hct 22.1 L, MCV 87.7, MCH 27.4, MCHC 31.2 L, RDW Std Deviation 54.2 H, RDW Coeff of Kael 16.7 H, Plt Count 245, MPV 9.3, Immature Gran % (Auto) 0.500, Neut % (Auto) 74.6 H, Lymph % (Auto) 11.9 L, [place] % (Auto) 10.2 H, Eos % (Auto) 2.6, Baso % (Auto) 0.2, Absolute Neuts (auto) 6.3, Absolute Lymphs (auto) 1.00, Nucleated RBC % 0 07/05/19 04:34: Sodium 140, Potassium 4.2, Chloride 104, Carbon Dioxide 28.0, Anion Gap 8, BUN 72 H, Creatinine 2.62 H, Estim Creat Clear Calc 25.55, Est GFR (MDRD) Af Amer 31 L, Est GFR (MDRD) Non-Af 25 L, BUN/Creatinine Ratio 27.5 H, Glucose 72 L, Calcium 8.6 07/05/19 06:22: POC Glucose 74 07/05/19 08:08: POC Glucose 83 07/05/19 12:01: POC Glucose 170 H Current Medications Acetaminophen (Tylenol) 650 mg PO Q6H PRN PRN PRN Reason: Pain Score 1-10/Temp > 100.7 F Last Admin: 07/05/19 06:24 Dose: 650 mg Documented by: Carvedilol (Coreg) 25 mg PO BID [facility] Last Admin: 07/05/19 10:50 Dose: 25 mg Documented by: Dextrose (D50w Syringe) 0 gm IV X1 PRN; Protocol PRN Reason: Hypoglycemia Ferrous Sulfate (Ferrous Sulfate) 325 mg PO 1200,1700 [facility] Glucagon () 1 mg IM .X1 PRN PRN Reason: Hypoglycemia Pantoprazole Sodium 40 mg/ (Sodium Chloride) 110 mls @ 330 mls/hr IV Q12 [facility] Last Infusion: 07/05/19 11:29 Dose: Infused Documented by: Insulin Human Lispro (Humalog Kwikpen (Bkc)) 0 unit SC ACHS [facility]; Protocol Last Admin: 07/05/19 06:25 Dose: Not Given Documented by: Melatonin (Melatonin) 3 mg PO QHS PRN PRN PRN Reason: INSOMNIA Nystatin (Mycostatin Powder) 1 applic TOPICAL BID [facility]; Protocol Last Admin: 07/05/19 10:50 Dose: 1 applicatio Documented by: Ondansetron HCl (Zofran) 4 mg IV Q8H PRN PRN PRN Reason: NAUSEA/VOMITING Pramipexole Dihydrochloride (Mirapex) 0.125 mg PO QHS [facility] Last Admin: 07/04/19 22:38 Dose: 0.125 mg Documented by: Sodium Chloride () 10 - 40 ml IV UD PRN PRN Reason: SALINE FLUSH Last Admin: 07/05/19 10:47 Dose: 10 ml Documented by: Spironolactone (Aldactone) 25 mg PO DAILY [facility] Last Admin: 07/05/19 10:50 Dose: 25 mg Documented by: Tamsulosin HCl (Flomax) 0.4 mg PO QHS [facility] Last Admin: 07/04/19 22:38 Dose: 0.4 mg Documented by: Medical Necessity - Tobacco Use Smoking Status: Former smoker Tobacco Use: Cigars, Pipe Assessment/Plan All Active Problems Renal failure (Acute) Urinary retention (Acute) GI bleed (Acute) Anemia (Acute) Delayed wound healing (Resolved) 1. Acute blood loss anemia suspect secondary to ongoing gross hematuria-urology consulted. Status post 4 units PRBC. Stool negative for occult blood. Continue IV PPI empirically as it is not clear if there is additional GI source of blood loss at this time. Trend CBC. 2. KOSTAS, suspect secondary to urinary retention with hydronephrosis-catheter placed in ER. Will increase Flomax to twice daily. Urology consulted. Trend BMP. Renal ultrasound ordered. 3. Hypertension-stable, continue carvedilol, Aldactone. 4. Chronic diastolic CHF-Lasix regimen on hold given KOSTAS. Echo January 2019 with EF 45%. 5. Anxiety/depression-continue Lexapro regimen. 6. Type 2 diabetes [id number]-[id number]-[id number] with sliding scale insulin. DVT prophylaxis-SCDs. CODE STATUS: DNR CC. Patient states he does not want any aggressive medical intervention. He is okay with current noninvasive plan of care. This patient was seen by JONO Cazares under the supervision of Dr. Hoang. <Ena Hoang - Last Filed: 07/05/19 18:22> - Physical Exam Vitals/I&O's: Vital Signs Temp Pulse Resp BP Pulse Ox 98.2 F 73 20 H 119/59 L 97 07/05/19 15:40 07/05/19 15:40 07/05/19 15:40 07/05/19 15:40 07/05/19 15:40 Oxygen Flow Rate (L/min) 2 Oxygen Delivery Method Nasal Cannula Weight: 121.2 kg Body Mass Index (BMI) 37.3 Finger Stick Blood Glucose 174 Intake and Output for Last 24 Hours 07/03/19 07/04/1907/05/20 23:59 23:59 23:59 Intake Total 510 / 1470 2990 / 2990 Output Total 6700 / 6700 Balance 510 / -530 -3710 / -3710 Microbiology Past 72 Hours 07/04/19 16:20 Stool Stool Occult Blood (QUAN) - Final Laboratory Results 07/04/19 16:20: Blood Type A POSITIVE, Antibody Screen NEGATIVE, Crossmatch See Detail 07/04/19 16:25: Crossmatch See Detail 07/04/19 22:46: POC Glucose 66 L 07/04/19 23:50: POC Glucose 72 07/05/19 04:34: WBC 8.4, RBC 2.52 L, Hgb 6.9 L, Hct 22.1 L, MCV 87.7, MCH 27.4, MCHC 31.2 L, RDW Std Deviation 54.2 H, RDW Coeff of Kael 16.7 H, Plt Count 245, MPV 9.3, Immature Gran % (Auto) 0.500, Neut % (Auto) 74.6 H, Lymph % (Auto) 11.9 L, [place] % (Auto) 10.2 H, Eos % (Auto) 2.6, Baso % (Auto) 0.2, Absolute Neuts (auto) 6.3, Absolute Lymphs (auto) 1.00, Nucleated RBC % 0 07/05/19 04:34: Sodium 140, Potassium 4.2, Chloride 104, Carbon Dioxide 28.0, Anion Gap 8, BUN 72 H, Creatinine 2.62 H, Estim Creat Clear Calc 25.55, Est GFR (MDRD) Af Amer 31 L, Est GFR (MDRD) Non-Af 25 L, BUN/Creatinine Ratio 27.5 H, Glucose 72 L, Calcium 8.6 07/05/19 06:22: POC Glucose 74 07/05/19 08:08: POC Glucose 83 07/05/19 12:01: POC Glucose 170 H 07/05/19 16:07: Hgb 8.6 L, Hct 27.1 L 07/05/19 16:51: POC Glucose 144 H Current Medications Acetaminophen (Tylenol) 650 mg PO Q6H PRN PRN PRN Reason: Pain Score 1-10/Temp > 100.7 F Last Admin: 07/05/19 06:24 Dose: 650 mg Documented by: Carvedilol (Coreg) 25 mg PO BID [facility] Last Admin: 07/05/19 10:50 Dose: 25 mg Documented by: Dextrose (D50w Syringe) 0 gm IV X1 PRN; Protocol PRN Reason: Hypoglycemia Ferrous Sulfate (Ferrous Sulfate) 325 mg PO 1200,1700 [facility] Last Admin: 07/05/19 17:35 Dose: 325 mg Documented by: Glucagon () 1 mg IM .X1 PRN PRN Reason: Hypoglycemia Pantoprazole Sodium 40 mg/ (Sodium Chloride) 110 mls @ 330 mls/hr IV Q12 [facility] Last Infusion: 07/05/19 11:29 Dose: Infused Documented by: Insulin Human Lispro (Humalog Kwikpen (Bkc)) 0 unit SC ACHS [facility]; Protocol Last Admin: 07/05/19 14:25 Dose: Not Given Documented by: Melatonin (Melatonin) 3 mg PO QHS PRN PRN PRN Reason: INSOMNIA Nystatin (Mycostatin Powder) 1 applic TOPICAL BID [facility]; Protocol Last Admin: 07/05/19 10:50 Dose: 1 applicatio Documented by: Ondansetron HCl (Zofran) 4 mg IV Q8H PRN PRN PRN Reason: NAUSEA/VOMITING Pramipexole Dihydrochloride (Mirapex) 0.125 mg PO QHS [facility] Last Admin: 07/04/19 22:38 Dose: 0.125 mg Documented by: Sodium Chloride () 10 - 40 ml IV UD PRN PRN Reason: SALINE FLUSH Last Admin: 07/05/19 17:35 Dose: 10 ml Documented by: Spironolactone (Aldactone) 25 mg PO DAILY [facility] Last Admin: 07/05/19 10:50 Dose: 25 mg Documented by: Tamsulosin HCl (Flomax) 0.4 mg PO BID [facility] Assessment/Plan This patient was seen in conjunction with Poonam Rios NP. I have independently interviewed and examined the patient and reviewed pertinent historical, laboratory, and other data. Please refer to her note for patient's presentation, findings, and recommendations. Patient was seen and examined. He looks weak, responds to questions. Does not want aggressive care. Noted hematuria in urinary bag. Currently being transfused 3rd or 4 bags of blood Vitals were reviewed -stable Physical Exam: Gen: Appears weak, frail, not pale, not jaundiced, alert oriented x3 CVS:HS I +II, regular, no murmurs RESP: Diminished at lung bases GI: BS present and normal, nontender, no palpable organs EXT:Bilateral pedal edema +1 Labs reviewed: ASSESSMENT: 1. Acute blood loss anemia 2. Hematuria, unknown etiology 3. KOSTAS on CKD stage 3 4. Hypertension 5. Chronic diastolic CHF 6. Anxiety/depression 7. Type 2 DM Meds reviewed Plan: Continue with blood transfusion Nephrology consult, urology consult Blood work in a.m. Code Visit Inpatient E&M: 97243 Subs Hosp L2
[2019-07-05 16:18] LABS: Hematocrit 27.1 % (40-54); Hemoglobin 8.6 g/dL (13.0-16.5)
--- NOTE | 2019-07-05 16:34 | CON.PCM_ITS ---
Consultation - Renal 07/05/19 PCP/ Referring MD: Requesting physician: Joanne Trejo MD Primary care physician: Filipe Simmons MD Reason for Consultation:: KOSTAS, obstructive uropathy - History of Present Illness History of Present Illness: The patient is a 74 year old M presents from [facility] with abdominal distention, worsening leg edema, worsening renal failure, and possibly a GI bleed. Hgb 6.1g with dark stools on admission. Creatinine 2.97 on admit and on 06/29 at [facility] to 2.62 today after lawson insertion. Creatinine 1.[address] scan of his abdomen pelvis showed a distended bladder with hydroureter and hydronephrosis. Kidneys were reported to be atrophic. He had 3 L urine drained immediately after lawson placement. Patient is DNR CCA and does not want heroic measures. Abdominal distention and discomfort improved after Lawson catheter insertion. He has minimal lower extremity edema. He was on Lasix, lisinopril, metolazone and Aldactone at [facility] medication list. Patient with history of stroke with diffuse weakness and debilitation especially in the right upper extremity. He carries a history of BPH without history of TURP. He is on Flomax. - Allergies Allergies: Allergies clarithromycin [From Biaxin] Allergy (Verified 07/04/19 15:56) Unknown diclofenac [From Voltaren] Adverse Reaction (Verified 07/04/19 15:56) Nausea/Vom/Diarrhea Macrolide Antibiotics Adverse Reaction (Verified 07/04/19 15:56) Chest tightness ketolides Allergy (Uncoded 07/04/19 19:21) Unknown - Current Medications Current Medications: Current Medications Acetaminophen (Tylenol) 650 mg PO Q6H PRN PRN PRN Reason: Pain Score 1-10/Temp > 100.7 F Last Admin: 07/05/19 06:24 Dose: 650 mg Documented by: Carvedilol (Coreg) 25 mg PO BID [facility] Last Admin: 07/05/19 10:50 Dose: 25 mg Documented by: Dextrose (D50w Syringe) 0 gm IV X1 PRN; Protocol PRN Reason: Hypoglycemia Ferrous Sulfate (Ferrous Sulfate) 325 mg PO 1200,1700 [facility] Last Admin: 07/05/19 15:19 Dose: Not Given Documented by: Glucagon () 1 mg IM .X1 PRN PRN Reason: Hypoglycemia Pantoprazole Sodium 40 mg/ (Sodium Chloride) 110 mls @ 330 mls/hr IV Q12 [facility] Last Infusion: 07/05/19 11:29 Dose: Infused Documented by: Insulin Human Lispro (Humalog Kwikpen (Bkc)) 0 unit SC ACHS [facility]; Protocol Last Admin: 07/05/19 14:25 Dose: Not Given Documented by: Melatonin (Melatonin) 3 mg PO QHS PRN PRN PRN Reason: INSOMNIA Nystatin (Mycostatin Powder) 1 applic TOPICAL BID [facility]; Protocol Last Admin: 07/05/19 10:50 Dose: 1 applicatio Documented by: Ondansetron HCl (Zofran) 4 mg IV Q8H PRN PRN PRN Reason: NAUSEA/VOMITING Pramipexole Dihydrochloride (Mirapex) 0.125 mg PO QHS [facility] Last Admin: 07/04/19 22:38 Dose: 0.125 mg Documented by: Sodium Chloride () 10 - 40 ml IV UD PRN PRN Reason: SALINE FLUSH Last Admin: 07/05/19 10:47 Dose: 10 ml Documented by: Spironolactone (Aldactone) 25 mg PO DAILY [facility] Last Admin: 07/05/19 10:50 Dose: 25 mg Documented by: Tamsulosin HCl (Flomax) 0.4 mg PO BID [facility] - Past Medical History Past Medical History (Chronic Problems): Chronic Problems Iron deficiency anemia (Chronic) Dysphagia (Chronic) Chronic diastolic (congestive) heart failure (Chronic) Grade II diastolic dysfunction (Chronic) Pulmonary hypertension (Chronic) PA systolic is estimated to be 40-45 on ECHO done 02/04/2019 Mild aortic stenosis (Chronic) Benign prostatic hyperplasia (Chronic) Hyperlipidemia (Chronic) Hypertension (Chronic) Venous insufficiency (chronic) (peripheral) (Chronic) Type 2 diabetes mellitus with diabetic polyneuropathy (Chronic) - Past Surgical History Surgical History: appendectomy, herniorrhaphy, total hip arthroplasty - rt, total knee arthroplasty, - - Shoulder repair. - Social History Smoking Status: Former smoker Alcohol: None Drugs: None - Family History Maternal History Items: Dementia Paternal History Items: - - in World War II Review of Systems Constitutional: Reports: Anorexia, Weakness - Chronic. Denies: Chills, Fever Eyes: Denies: Vision Change Cardiovascular: Reports: Edema. Denies: Chest Pain, Syncope Gastrointestinal: Denies: Constipation, Diarrhea, Hematochezia, Nausea, Melena, Vomiting Genitourinary: Reports: Retention. Denies: Dysuria Skin: Denies: Wounds Neurological: Reports: - - History of stroke. Denies: Tremor, Seizures Psychiatric: Denies: Anxiety, Depression Hematologic/ Lymphatic: Reports: Anemia Patient Problems: Active and Suspected Problems Renal failure (Acute) Urinary retention (Acute) GI bleed (Acute) Anemia (Acute) - Physical Exam Vitals/I&O's: Vital Signs Temp Pulse Resp BP Pulse Ox 98.2 F 73 20 H 119/59 L 97 07/05/19 15:40 07/05/19 15:40 07/05/19 15:40 07/05/19 15:40 07/05/19 15:40 Oxygen Flow Rate (L/min) 2 Oxygen Delivery Method Nasal Cannula Weight: 121.2 kg Body Mass Index (BMI) 37.3 Finger Stick Blood Glucose 174 Intake and Output for Last 24 Hours 07/03/19 07/04/19 07/05/19 23:59 23:59 23:59 Intake Total 510 / 1470 2750 / 2750 Output Total 5750 / 5750 Balance 510 / -530 -3000 / -3000 General: Alert, Oriented x3, Cooperative, No apparent distress, - - Slow to respond HEENT: PERRLA Oral: Dry Mucosa Neck: Supple, No JVD Lungs: Clear to auscultation Cardiovascular: Regular rate Abdomen: Bowel Sounds Present, Soft, Non Tender, Non-Distended, Obese Extremities: No edema, - - Legs wrapped with [place] Skin: No rashes Musculoskeletal: - - Muscle weakness diffuse, chronic debilitation from stroke Neurological: - - Diffuse weakness Psych/Mental Status: Flat Affect, Alert and oriented to time, place, person, mood and affect Microbiology Past 72 Hours 07/04/19 16:20 Stool Stool Occult Blood (QUAN) - Final Laboratory Results 07/04/19 15:45: B-Natriuretic Peptide 58.8 07/04/19 16:20: Blood Type A POSITIVE, Antibody Screen NEGATIVE, Crossmatch See Detail 07/04/19 16:25: Crossmatch See Detail 07/04/19 16:47: Urine Color Yellow, Urine Clarity Clear, Urine pH 5.0, Ur Specific [place] 1.015, Urine Protein Negative, Urine Glucose (UA) Normal, Urine Ketones Negative, Urine Occult Blood Negative, Urine Nitrite Negative, Urine Bilirubin Negative, Urine Urobilinogen Normal, Ur Leukocyte Esterase 25 H, Urine RBC 0-5 SEEN, Urine WBC 0-5 SEEN, Ur Squamous Epith Cells 0 SEEN, Urine Bacteria 0 SEEN, Urine Mucus 0 SEEN 07/04/19 22:46: POC Glucose 66 L 07/04/19 23:50: POC Glucose 72 07/05/19 04:34: WBC 8.4, RBC 2.52 L, Hgb 6.9 L, Hct 22.1 L, MCV 87.7, MCH 27.4, MCHC 31.2 L, RDW Std Deviation 54.2 H, RDW Coeff of Kael 16.7 H, Plt Count 245, MPV 9.3, Immature Gran % (Auto) 0.500, Neut % (Auto) 74.6 H, Lymph % (Auto) 11.9 L, [place] % (Auto) 10.2 H, Eos % (Auto) 2.6, Baso % (Auto) 0.2, Absolute Neuts (auto) 6.3, Absolute Lymphs (auto) 1.00, Nucleated RBC % 0 07/05/19 04:34: Sodium 140, Potassium 4.2, Chloride 104, Carbon Dioxide 28.0, Anion Gap 8, BUN 72 H, Creatinine 2.62 H, Estim Creat Clear Calc 25.55, Est GFR (MDRD) Af Amer 31 L, Est GFR (MDRD) Non-Af 25 L, BUN/Creatinine Ratio 27.5 H, Glucose 72 L, Calcium 8.6 07/05/19 06:22: POC Glucose 74 07/05/19 08:08: POC Glucose 83 07/05/19 12:01: POC Glucose 170 H 07/05/19 16:07: Hgb 8.6 L, Hct 27.1 L Current Medications Acetaminophen (Tylenol) 650 mg PO Q6H PRN PRN PRN Reason: Pain Score 1-10/Temp > 100.7 F Last Admin: 07/05/19 06:24 Dose: 650 mg Documented by: Carvedilol (Coreg) 25 mg PO BID [facility] Last Admin: 07/05/19 10:50 Dose: 25 mg Documented by: Dextrose (D50w Syringe) 0 gm IV X1 PRN; Protocol PRN Reason: Hypoglycemia Ferrous Sulfate (Ferrous Sulfate) 325 mg PO 1200,1700 [facility] Last Admin: 07/05/19 15:19 Dose: Not Given Documented by: Glucagon () 1 mg IM .X1 PRN PRN Reason: Hypoglycemia Pantoprazole Sodium 40 mg/ (Sodium Chloride) 110 mls @ 330 mls/hr IV Q12 [facility] Last Infusion: 07/05/19 11:29 Dose: Infused Documented by: Insulin Human Lispro (Humalog Kwikpen (Bkc)) 0 unit SC ACHS [facility]; Protocol Last Admin: 07/05/19 14:25 Dose: Not Given Documented by: Melatonin (Melatonin) 3 mg PO QHS PRN PRN PRN Reason: INSOMNIA Nystatin (Mycostatin Powder) 1 applic TOPICAL BID [facility]; Protocol Last Admin: 07/05/19 10:50 Dose: 1 applicatio Documented by: Ondansetron HCl (Zofran) 4 mg IV Q8H PRN PRN PRN Reason: NAUSEA/VOMITING Pramipexole Dihydrochloride (Mirapex) 0.125 mg PO QHS [facility] Last Admin: 07/04/19 22:38 Dose: 0.125 mg Documented by: Sodium Chloride () 10 - 40 ml IV UD PRN PRN Reason: SALINE FLUSH Last Admin: 07/05/19 10:47 Dose: 10 ml Documented by: Spironolactone (Aldactone) 25 mg PO DAILY [facility] Last Admin: 07/05/19 10:50 Dose: 25 mg Documented by: Tamsulosin HCl (Flomax) 0.4 mg PO BID [facility] Assessment/Plan All Active Problems Renal failure (Acute) Urinary retention (Acute) GI bleed (Acute) Anemia (Acute) Delayed wound healing (Resolved) 1. Acute kidney injury due to obstructive uropathy. Creatinine 2.9 improved to 2.6 today after Lawson catheter insertion. Baseline creatinine 1.1 eGFR 69 from January 2019. Lawson with gross hematuria. Urine output good. CT abdomen with bilateral hydroureter and hydronephrosis with renal atrophy. Continue Flomax and Lawson to . Patient does not want heroic measures or aggressive intervention. Echocardiogram from January 2019 showed LVEF 55%. 2. History of stroke with muscle weakness, assistance with ADLs. ECF resident. 3. Morbid obesity 4. Sleep apnea 5. Type 2 diabetes mellitus with neuropathy blood sugar stable. 6. GI bleed with hemoglobin 6.1g received 4 units PRBC. Primary service management.
[2019-07-05 17:10] LABS: Bedside Glucose 144 mg/dL (70-110)
[2019-07-05] MEDS: Ferrous Sulfate 325 MG Tablet PO (17:35)
[2019-07-05] MEDS: Tamsulosin HCl 0.4 MG Capsule PO (21:43)
[2019-07-05] MEDS: Pramipexole Di-HCl 0.125 MG Tablet PO (21:43)
[2019-07-05 22:16] LABS: Bedside Glucose 141 mg/dL (70-110)
[2019-07-06 01:56] VITALS: BP 142/71; PULSE 74; RESP 20; TEMP 36.8; O2SAT 96
[2019-07-06 05:46] LABS: Hematocrit 28.1 % (40-54); Hemoglobin 8.7 g/dL (13.0-16.5); Mean Corpuscular Volume 87.3 fL (80-94); Mean Platelet Vol. 9.5 fl (6.2-12.0); Platelet Count 264 K/mm3 (150-450); RBC Distribution Width CV 15.8 % (11.6-14.6); RBC Distribution Width SD 50.4 fl (35.1-43.9); Red Blood Count 3.22 M/mm3 (4.6-6.2); White Blood Count 9.9 K/mm3 (4.4-11.0)
[2019-07-06 06:16] LABS: Albumin, Serum 2.5 g/dL (3.2-5.0); BUN 53 mg/dL (7-18); BUN/Creat Ratio 23.1 RATIO (10-20); Calcium,Total 8.8 mg/dL (8.5-10.1); Chloride 107 mmol/L (98-107); Creatinine, Serum 2.29 mg/dL (0.70-1.30); EST Glomerular Filtration Rate 30 mL/min (>60); Est Glom Filt Rate - Afr Amer 36 mL/min (>60); Estimated Creatinine Clearance 29.23 ml/min; Glucose 144 mg/dL (74-106); Phosphorus 4.3 mg/dL (2.5-4.9); Sodium Level 142 mmol/L (136-145)
[2019-07-06 06:36] LABS: Bedside Glucose 153 mg/dL (70-110)
[2019-07-06] MEDS: Insulin Lispro 100 UNIT/ML INSULN.PEN SC ×3 (06:38→16:05)
[2019-07-06 07:45] VITALS: BP 129/69; PULSE 71; RESP 18; TEMP 36.7; O2SAT 95
[2019-07-06] MEDS: Carvedilol 25 MG Tablet PO ×2 (07:47→22:10)
[2019-07-06] MEDS: Tamsulosin HCl 0.4 MG Capsule PO ×2 (07:47→22:10)
[2019-07-06] MEDS: Nystatin Powder 15gm Bottle 1 APPLIC TOPICAL ×2 (07:48→22:11)
[2019-07-06] MEDS: Spironolactone 25 MG Tablet PO (07:48)
[2019-07-06] MEDS: Ferrous Sulfate 325 MG Tablet PO ×2 (11:07→16:03)
[2019-07-06 11:45] LABS: Bedside Glucose 164 mg/dL (70-110)
--- NOTE | 2019-07-06 12:42 | CASEMGMT ---
Updates were faxed to [facility]. Jeanette HODGES [employer]SIDE DEL[employer]
--- NOTE | 2019-07-06 14:10 | PN.RENAL_ITS ---
Patient Problems: Active and Suspected Problems Renal failure (Acute) Urinary retention (Acute) GI bleed (Acute) Anemia (Acute) Subjective: renal us no hydro. Creatinine continues to improve with lawson to CD. Gross hematuria improving. Urine output good. Denies shortness of breath - Physical Exam Vitals/I&O's: Vital Signs Temp Pulse Resp BP Pulse Ox 98.1 F 71 18 129/69 H 95 07/06/19 07:45 07/06/19 07:45 07/06/19 07:45 07/06/19 07:45 07/06/19 07:45 Oxygen Flow Rate (L/min) 2 Oxygen Delivery Method Room Air Weight: 121.2 kg Body Mass Index (BMI) 37.3 Finger Stick Blood Glucose 174 Intake and Output for Last 24 Hours 07/04/19 07/05/19 07/06/19 23:59 23:59 23:59 Intake Total 510 / 1470 3100 / 3100 350 / 350 Output Total 6700 / 6700 3025 / 3025 Balance 510 / -530 -3600 / -3600 -2675 / -2675 General: - - drowsy but arrousable, slow to respond Lungs: Clear to auscultation Cardiovascular: Regular rate Extremities: Edema - mild Microbiology Past 72 Hours 07/04/19 16:20 Stool Stool Occult Blood (QUAN) - Final Laboratory Results 07/04/19 16:25: Crossmatch See Detail 07/05/19 16:07: Hgb 8.6 L, Hct 27.1 L 07/05/19 16:51: POC Glucose 144 H 07/05/19 21:47: POC Glucose 141 H 07/06/19 05:25: Sodium 142, Potassium 4.0, Chloride 107, Carbon Dioxide 31.0, BUN 53 H, Creatinine 2.29 H, Estim Creat Clear Calc 29.23, Est GFR (MDRD) Af Amer 36 L, Est GFR (MDRD) Non-Af 30 L, BUN/Creatinine Ratio 23.1 H, Glucose 144 H, Calcium 8.8, Phosphorus 4.3, Albumin 2.5 L 07/06/19 05:25: WBC 9.9, RBC 3.22 L, Hgb 8.7 L, Hct 28.1 L, MCV 87.3, MCH 27.0, MCHC 31.0 L, RDW Std Deviation 50.4 H, RDW Coeff of Kael 15.8 H, Plt Count 264, MPV 9.5 07/06/19 06:31: POC Glucose 153 H 07/06/19 11:06: POC Glucose 164 H Current Medications Acetaminophen (Tylenol) 650 mg PO Q6H PRN PRN PRN Reason: Pain Score 1-10/Temp > 100.7 F Last Admin: 07/05/19 06:24 Dose: 650 mg Documented by: Carvedilol (Coreg) 25 mg PO BID [facility] Last Admin: 07/06/19 07:47 Dose: 25 mg Documented by: Dextrose (D50w Syringe) 0 gm IV X1 PRN; Protocol PRN Reason: Hypoglycemia Ferrous Sulfate (Ferrous Sulfate) 325 mg PO 1200,1700 [facility] Last Admin: 07/06/19 11:07 Dose: 325 mg Documented by: Glucagon () 1 mg IM .X1 PRN PRN Reason: Hypoglycemia Pantoprazole Sodium 40 mg/ (Sodium Chloride) 110 mls @ 330 mls/hr IV Q12 [facility] Last Infusion: 07/06/19 08:15 Dose: Infused Documented by: Insulin Human Lispro (Humalog Kwikpen (Bkc)) 0 unit SC ACHS [facility]; Protocol Last Admin: 07/06/19 11:07 Dose: 1 u Documented by: Melatonin (Melatonin) 3 mg PO QHS PRN PRN PRN Reason: INSOMNIA Nystatin (Mycostatin Powder) 1 applic TOPICAL BID [facility]; Protocol Last Admin: 07/06/19 07:48 Dose: 1 applicatio Documented by: Ondansetron HCl (Zofran) 4 mg IV Q8H PRN PRN PRN Reason: NAUSEA/VOMITING Pramipexole Dihydrochloride (Mirapex) 0.125 mg PO QHS [facility] Last Admin: 07/05/19 21:43 Dose: 0.125 mg Documented by: Sodium Chloride () 10 - 40 ml IV UD PRN PRN Reason: SALINE FLUSH Last Admin: 07/05/19 17:35 Dose: 10 ml Documented by: Spironolactone (Aldactone) 25 mg PO DAILY [facility] Last Admin: 07/06/19 07:48 Dose: 25 mg Documented by: Tamsulosin HCl (Flomax) 0.4 mg PO BID [facility] Last Admin: 07/06/19 07:47 Dose: 0.4 mg Documented by: Medical Necessity - Tobacco Use Smoking Status: Former smoker Tobacco Use: Cigars, Pipe Assessment/Plan All Active Problems Renal failure (Acute) Urinary retention (Acute) GI bleed (Acute) Anemia (Acute) Delayed wound healing (Resolved) 1. Acute kidney injury due to obstructive uropathy. Creatinine 2.9 improved to 2.2 today. Continue Lawson catheter to CD. Consider evaluation 2. History of stroke with muscle weakness, chronic debilitation. assistance with ADLs. ECF resident. 3. Morbid obesity 4. Type 2 diabetes mellitus with neuropathy blood sugar stable. 5. GIB hgb stable
--- NOTE | 2019-07-06 14:19 | PN_ITS ---
<Poonam Rios - Last Filed: 07/06/19 14:25> Patient Problems: Active and Suspected Problems Renal failure (Acute) Urinary retention (Acute) GI bleed (Acute) Anemia (Acute) Subjective: Patient seen and examined. Feeling improved. Denies shortness of breath or other complaints. Denies pain. - Physical Exam Vitals/I&O's: Vital Signs Temp Pulse Resp BP Pulse Ox 98.1 F 71 18 129/69 H 95 07/06/19 07:45 07/06/19 07:45 07/06/19 07:45 07/06/19 07:45 07/06/19 07:45 Oxygen Flow Rate (L/min) 2 Oxygen Delivery Method Room Air Weight: 267 lb 3.204 oz Body Mass Index (BMI) 37.3 Finger Stick Blood Glucose 174 Intake and Output for Last 24 Hours 07/04/19 07/05/19 07/06/19 23:59 23:59 23:59 Intake Total 510 / 1470 3100 / 3100 350 / 350 Output Total 6700 / 6700 3025 / 3025 Balance 510 / -530 -3600 / -3600 -2675 / -2675 General: Alert, Oriented x3, Cooperative HEENT: Atraumatic, PERRLA, EOMI, Normocephalic Neck: Supple, No JVD, Negative Carotid Bruits Lungs: Clear to auscultation, Normal air movement Cardiovascular: Regular rate, Regular Rhythm, Normal S1, Normal S2, No murmurs Abdomen: Bowel Sounds Present, Soft, Non Tender, Non-Distended Extremities: No clubbing, No cyanosis, Capillary Refill Less than 3 Seconds, - - Bilateral lower extremity edema Skin: No rashes, No breakdown Musculoskeletal: No Tenderness to Palpation of Joints or Extremities Neurological: Cranial nerves II-XII grossly intact, Neuro grossly intact Psych/Mental Status: Normal Affect, Appropriate Microbiology Past 72 Hours 07/04/19 16:20 Stool Stool Occult Blood (QUAN) - Final Laboratory Results 07/04/19 16:25: Crossmatch See Detail 07/05/19 16:07: Hgb 8.6 L, Hct 27.1 L 07/05/19 16:51: POC Glucose 144 H 07/05/19 21:47: POC Glucose 141 H 07/06/19 05:25: Sodium 142, Potassium 4.0, Chloride 107, Carbon Dioxide 31.0, BUN 53 H, Creatinine 2.29 H, Estim Creat Clear Calc 29.23, Est GFR (MDRD) Af Amer 36 L, Est GFR (MDRD) Non-Af 30 L, BUN/Creatinine Ratio 23.1 H, Glucose 144 H, Calcium 8.8, Phosphorus 4.3, Albumin 2.5 L 07/06/19 05:25: WBC 9.9, RBC 3.22 L, Hgb 8.7 L, Hct 28.1 L, MCV 87.3, MCH 27.0, MCHC 31.0 L, RDW Std Deviation 50.4 H, RDW Coeff of Kael 15.8 H, Plt Count 264, MPV 9.5 07/06/19 06:31: POC Glucose 153 H 07/06/19 11:06: POC Glucose 164 H Current Medications Acetaminophen (Tylenol) 650 mg PO Q6H PRN PRN PRN Reason: Pain Score 1-10/Temp > 100.7 F Last Admin: 07/05/19 06:24 Dose: 650 mg Documented by: Carvedilol (Coreg) 25 mg PO BID [facility] Last Admin: 07/06/19 07:47 Dose: 25 mg Documented by: Dextrose (D50w Syringe) 0 gm IV X1 PRN; Protocol PRN Reason: Hypoglycemia Ferrous Sulfate (Ferrous Sulfate) 325 mg PO 1200,1700 [facility] Last Admin: 07/06/19 11:07 Dose: 325 mg Documented by: Glucagon () 1 mg IM .X1 PRN PRN Reason: Hypoglycemia Pantoprazole Sodium 40 mg/ (Sodium Chloride) 110 mls @ 330 mls/hr IV Q12 [facility] Last Infusion: 07/06/19 08:15 Dose: Infused Documented by: Insulin Human Lispro (Humalog Kwikpen (Bkc)) 0 unit SC ACHS [facility]; Protocol Last Admin: 07/06/19 11:07 Dose: 1 u Documented by: Melatonin (Melatonin) 3 mg PO QHS PRN PRN PRN Reason: INSOMNIA Nystatin (Mycostatin Powder) 1 applic TOPICAL BID [facility]; Protocol Last Admin: 07/06/19 07:48 Dose: 1 applicatio Documented by: Ondansetron HCl (Zofran) 4 mg IV Q8H PRN PRN PRN Reason: NAUSEA/VOMITING Pramipexole Dihydrochloride (Mirapex) 0.125 mg PO QHS [facility] Last Admin: 07/05/19 21:43 Dose: 0.125 mg Documented by: Sodium Chloride () 10 - 40 ml IV UD PRN PRN Reason: SALINE FLUSH Last Admin: 07/05/19 17:35 Dose: 10 ml Documented by: Spironolactone (Aldactone) 25 mg PO DAILY [facility] Last Admin: 07/06/19 07:48 Dose: 25 mg Documented by: Tamsulosin HCl (Flomax) 0.4 mg PO BID [facility] Last Admin: 07/06/19 07:47 Dose: 0.4 mg Documented by: Medical Necessity - Tobacco Use Smoking Status: Former smoker Tobacco Use: Cigars, Pipe Assessment/Plan All Active Problems Renal failure (Acute) Urinary retention (Acute) GI bleed (Acute) Anemia (Acute) Delayed wound healing (Resolved) 1. Acute blood loss anemia suspect secondary to gross hematuria-urology consulted. Status post 4 units PRBC. Stool negative for occult blood. Continue IV PPI empirically as it is not clear if there is additional GI source of blood loss at this time. Hemoglobin is now stable. Trend CBC. Awaiting urology input. 2. KOSTAS, suspect secondary to urinary retention with hydronephrosis-catheter placed in ER. Will increase Flomax to twice daily. Urology consulted. Trend BMP. Renal ultrasound showed cysts of the kidneys, otherwise normal. Creatinine improving. 3. Hypertension-stable, continue carvedilol, Aldactone. 4. Chronic diastolic CHF-Lasix regimen on hold given KOSTAS. Echo January 2019 with EF 45%. 5. Anxiety/depression-continue Lexapro regimen. 6. Type 2 diabetes [id number] with sliding scale insulin. DVT prophylaxis-SCDs. CODE STATUS: DNR CC. Patient states he does not want any aggressive medical intervention. He is okay with current noninvasive plan of care. Discharge planning: Long-term SNF resident, return to SNF when stable. This patient was seen by JONO Cazares under the supervision of Dr. Hoang. <Ena Hoang - Last Filed: 07/06/19 15:53> - Physical Exam Vitals/I&O's: Vital Signs Temp Pulse Resp BP Pulse Ox 98.3 F 74 18 146/69 H 97 07/06/19 14:20 07/06/19 14:20 07/06/19 14:20 07/06/19 14:20 07/06/19 14:20 Oxygen Flow Rate (L/min) 2 Oxygen Delivery Method Room Air Weight: 121.2 kg Body Mass Index (BMI) 37.3 Finger Stick Blood Glucose 174 Intake and Output for Last 24 Hours 07/04/19 07/05/19 07/06/19 23:59 23:59 23:59 Intake Total 510 / 1470 3100 / 3100 350 / 350 Output Total 6700 / 6700 3025 / 3025 Balance 510 / -530 -3600 / -3600 -2675 / -2675 Microbiology Past 72 Hours 07/04/19 16:20 Stool Stool Occult Blood (QUAN) - Final Laboratory Results 07/04/19 16:25: Crossmatch See Detail 07/05/19 16:07: Hgb 8.6 L, Hct 27.1 L 07/05/19 16:51: POC Glucose 144 H 07/05/19 21:47: POC Glucose 141 H 07/06/19 05:25: Sodium 142, Potassium 4.0, Chloride 107, Carbon Dioxide 31.0, BUN 53 H, Creatinine 2.29 H, Estim Creat Clear Calc 29.23, Est GFR (MDRD) Af Amer 36 L, Est GFR (MDRD) Non-Af 30 L, BUN/Creatinine Ratio 23.1 H, Glucose 144 H, Calcium 8.8, Phosphorus 4.3, Albumin 2.5 L 07/06/19 05:25: WBC 9.9, RBC 3.22 L, Hgb 8.7 L, Hct 28.1 L, MCV 87.3, MCH 27.0, MCHC 31.0 L, RDW Std Deviation 50.4 H, RDW Coeff of Kael 15.8 H, Plt Count 264, MPV 9.5 07/06/19 06:31: POC Glucose 153 H 07/06/19 11:06: POC Glucose 164 H Current Medications Acetaminophen (Tylenol) 650 mg PO Q6H PRN PRN PRN Reason: Pain Score 1-10/Temp > 100.7 F Last Admin: 07/05/19 06:24 Dose: 650 mg Documented by: Carvedilol (Coreg) 25 mg PO BID [facility] Last Admin: 07/06/19 07:47 Dose: 25 mg Documented by: Dextrose (D50w Syringe) 0 gm IV X1 PRN; Protocol PRN Reason: Hypoglycemia Ferrous Sulfate (Ferrous Sulfate) 325 mg PO 1200,1700 [facility] Last Admin: 07/06/19 11:07 Dose: 325 mg Documented by: Glucagon () 1 mg IM .X1 PRN PRN Reason: Hypoglycemia Pantoprazole Sodium 40 mg/ (Sodium Chloride) 110 mls @ 330 mls/hr IV Q12 [facility] Last Infusion: 07/06/19 08:15 Dose: Infused Documented by: Insulin Human Lispro (Humalog Kwikpen (Bkc)) 0 unit SC ACHS [facility]; Protocol Last Admin: 07/06/19 11:07 Dose: 1 u Documented by: Melatonin (Melatonin) 3 mg PO QHS PRN PRN PRN Reason: INSOMNIA Nystatin (Mycostatin Powder) 1 applic TOPICAL BID [facility]; Protocol Last Admin: 07/06/19 07:48 Dose: 1 applicatio Documented by: Ondansetron HCl (Zofran) 4 mg IV Q8H PRN PRN PRN Reason: NAUSEA/VOMITING Pramipexole Dihydrochloride (Mirapex) 0.125 mg PO QHS [facility] Last Admin: 07/05/19 21:43 Dose: 0.125 mg Documented by: Sodium Chloride () 10 - 40 ml IV UD PRN PRN Reason: SALINE FLUSH Last Admin: 07/05/19 17:35 Dose: 10 ml Documented by: Spironolactone (Aldactone) 25 mg PO DAILY [facility] Last Admin: 07/06/19 07:48 Dose: 25 mg Documented by: Tamsulosin HCl (Flomax) 0.4 mg PO BID [facility] Last Admin: 07/06/19 07:47 Dose: 0.4 mg Documented by: Assessment/Plan This patient was seen in conjunction with Poonam Rios NP. I have independently interviewed and examined the patient and reviewed pertinent historical, laboratory, and other data. Please refer to her note for patient's presentation, findings, and recommendations. Patient was seen and examined. He looks weak, responds to questions. Still has hematuria in urinary bag Vitals were reviewed -stable Physical Exam: Gen: Appears weak, frail, not pale, not jaundiced, alert oriented x3 CVS:HS I +II, regular, no murmurs RESP: Diminished at lung bases GI: BS present and normal, nontender, no palpable organs EXT:Bilateral pedal edema +1 Labs reviewed: Hemoglobin is 8.7, Creatinine improved to 2.29 from 2.97 ASSESSMENT: 1. Acute blood loss anemia 2. Hematuria, unknown etiology 3. KOSTAS on CKD stage 3 4. Hypertension 5. Chronic diastolic CHF 6. Anxiety/depression 7. Type 2 DM Meds reviewed Plan: Will discharge patient tomorrow with catheter Follow-up with urology in outpatient on discharge Will suggest palliative care in the SNF Code Visit Inpatient E&M: 08684 Subs Hosp L2
[2019-07-06 14:20] VITALS: BP 146/69; PULSE 74; RESP 18; TEMP 36.8; O2SAT 97
[2019-07-06 16:25] LABS: Bedside Glucose 196 mg/dL (70-110)
[2019-07-06 20:00] VITALS: BP 144/76; PULSE 74; RESP 16; TEMP 36.8; O2SAT 94
[2019-07-06] MEDS: MELATONIN 3 MG TABLET PO (22:10)
[2019-07-06] MEDS: Menthol/Lanolin/Calamine/Znox 113 GM Tube 1 APPLIC TOPICAL (22:10)
[2019-07-06] MEDS: Acetaminophen 325 MG Tablet 650 MG PO (22:10)
[2019-07-06] MEDS: Pramipexole Di-HCl 0.125 MG Tablet PO (22:11)
[2019-07-06 23:11] LABS: Bedside Glucose 143 mg/dL (70-110)
[2019-07-07 02:10] VITALS: BP 123/69; PULSE 70; RESP 16; TEMP 37.2; O2SAT 96
[2019-07-07 05:17] LABS: Hematocrit 28.4 % (40-54); Mean Corp Hgb Conc 31.7 g/dL (32-36); Mean Corpuscular Hgb 27.4 pg (27.0-32.0); Mean Corpuscular Volume 86.6 fL (80-94); Mean Platelet Vol. 9.7 fl (6.2-12.0); Platelet Count 247 K/mm3 (150-450); RBC Distribution Width CV 15.1 % (11.6-14.6); RBC Distribution Width SD 48.5 fl (35.1-43.9); Red Blood Count 3.28 M/mm3 (4.6-6.2)
[2019-07-07 05:32] LABS: Anion Gap 6 (5-15); BUN 44 mg/dL (7-18); BUN/Creat Ratio 22.6 RATIO (10-20); Calcium,Total 8.8 mg/dL (8.5-10.1); Chloride 103 mmol/L (98-107); Creatinine, Serum 1.95 mg/dL (0.70-1.30); EST Glomerular Filtration Rate 36 mL/min (>60); Est Glom Filt Rate - Afr Amer 43 mL/min (>60); Estimated Creatinine Clearance 34.32 ml/min; Glucose 135 mg/dL (74-106); Potassium 3.8 mmol/L (3.5-5.1); Sodium Level 140 mmol/L (136-145)
[2019-07-07 06:35] LABS: Bedside Glucose 129 mg/dL (70-110)
--- NOTE | 2019-07-07 07:30 | PCM.CONS.U ---
Reason for Consult Date of Consultation: 07/07/19 Reason for Consultation: Urinary retention History of Present Illness: The patient is a 74 year old male who is currently a resident in a detention states he has been there since the summer was brought into the hospital for further care was found to have retention of urine with a significant amount of urine in his bladder was drained. He did have some blood in the urine. After the catheter was put in. Catheter currently is in place the urine is fairly clear. I reviewed his CAT scan and will see any tumors or masses within the bladder. Unable to do a rectal exam today because of the patient in the hospital. Do not have any history of PSAs etc. Past Medical History Past Medical History (Chronic Problems): Chronic Problems Iron deficiency anemia (Chronic) Dysphagia (Chronic) Chronic diastolic (congestive) heart failure (Chronic) Grade II diastolic dysfunction (Chronic) Pulmonary hypertension (Chronic) PA systolic is estimated to be 40-45 on ECHO done 02/04/2019 Mild aortic stenosis (Chronic) Benign prostatic hyperplasia (Chronic) Hyperlipidemia (Chronic) Hypertension (Chronic) Venous insufficiency (chronic) (peripheral) (Chronic) Type 2 diabetes mellitus with diabetic polyneuropathy (Chronic) Allergies clarithromycin [From Biaxin] Allergy (Verified 07/04/19 15:56) Unknown diclofenac [From Voltaren] Adverse Reaction (Verified 07/04/19 15:56) Nausea/Vom/Diarrhea Macrolide Antibiotics Adverse Reaction (Verified 07/04/19 15:56) Chest tightness ketolides Allergy (Uncoded 07/04/19 19:21) Unknown Home Medications: Ambulatory Orders Medication Instructions Recorded Carvedilol [Coreg (Beta Sarah)] 25 mg PO BID 02/02/19 Furosemide [Lasix] 40 mg PO BID@0800,1200 02/02/19 Glipizide [Glipizide ER] 10 mg PO DAILY 02/02/19 Insulin Lispro [Humalog] See Protocol SQ ACHS 02/02/19 Lisinopril [Zestril] 20 mg PO BID 02/02/19 Spironolactone [Aldactone] 25 mg PO DAILY 02/02/19 Tamsulosin HCl [Flomax] 0.4 mg PO QHS 02/02/19 Ascorbic Acid [Vitamin C] 500 mg PO BID 07/04/19 Aspirin [Aspirin, Baby] 81 mg PO DAILY@0800 07/04/19 Escitalopram Oxalate [Lexapro] 10 mg PO DAILY 07/04/19 Ferrous Sulfate 325 mg PO BID 07/04/19 Metolazone 5 mg PO DAILY 07/04/19 Mirtazapine 7.5 mg PO QHS 07/04/19 Pantoprazole Sodium [Protonix] 20 mg PO DAILY 07/04/19 Pramipexole Di-HCl [Mirapex] 0.125 mg PO QHS 07/04/19 Sennosides/Docusate Sodium [Senna 2 tab PO QHS 07/04/19 Plus 8.6-50 mg Tablet] Surgical History: appendectomy, herniorrhaphy, total hip arthroplasty - rt, total knee arthroplasty, - - Shoulder repair. Psychiatric History: No pertinent psych hx Lives: Jail Smoking Status: Former smoker Tobacco Use: Cigars, Pipe Alcohol: None Drugs: None - *Family History Maternal History Items: Dementia Paternal History Items: - - in World War II Review of Systems Constitutional: Denies: Chills, Fever, Weight Change HEENT: Denies: Head Aches, Sinus Congestion, Sinus Drainage Cardiovascular: Denies: Chest Pain, Palpitations Respiratory: Denies: Cough, Shortness of breath at rest, Sputum production Gastrointestinal: Denies: Abdominal Pain, Nausea, Vomiting Genitourinary: Reports: Retention Musculoskeletal: Denies: Joint Pain, Joint Tenderness Skin: Denies: Rash, Wounds Neurological: Denies: Numbness, Tingling, Focal weakness Psychiatric: Denies: Anxiety, Depression, Homicidal Ideations, Suicidal Ideations Hematologic/ Lymphatic: Denies: Easy Bruising, Easy Bleeding Physical Exam - Physical Exam Vital Signs Temp 98.9 F 07/07/19 02:10 Pulse 70 07/07/19 02:10 Resp 16 07/07/19 02:10 BP 123/69 H 07/07/19 02:10 Pulse Ox 96 07/07/19 02:10 Intake & Output 07/05/19 07/06/19 07/07/19 23:59 23:59 23:59 Intake Total 3100 / 3100 710 / 710 100 / 100 Output Total 6700 / 6700 4050 / 4050 1200 / 1200 Balance -3600 / -3600 -3340 / -3340 -1100 / -1100 Weight: 121.2 kg Intake: Oral 1680 / 1680 480 / 480 100 / 100 Intake, IV Amount 220 / 220 230 / 230 0.9% Normal Saline 250 ML @ 15 10 / 10 mls/hr IV [id number] PRN Rx#: [id number] Protonix 40 MG In 0.9% Normal 220 / 220 220 / 220 Saline 100 ML @ 330 mls/hr IV Q12 [facility] Rx#:[id number] Blood Product 1200 / 1200 Leuko-Reduced Red Blood Cells 400 / 400 Unit [id number] Leuko-Reduced Red Blood Cells 400 / 400 Unit [id number] Leuko-Reduced Red Blood Cells 400 / 400 Unit [id number] Output: Urine 6700 / 6700 4050 / 4050 1200 / 1200 Other: Number of Bowel Movements 1 General: Alert HEENT: Atraumatic Oral: Moist Mucosa Neck: Supple Lungs: Clear to auscultation Cardiovascular: Regular rate Abdomen: Soft, Obese Rectal: Exam deferred Microbiology Past 72 Hours 07/04/19 16:20 Stool Occult Blood (QUAN) - Final Stool Laboratory Tests Past 24 Hrs 07/07/19 07/07/19 05:00 05:00 WBC 10.0 RBC 3.28 L Hgb 9.0 L Hct 28.4 L MCV 86.6 MCH 27.4 MCHC 31.7 L RDW Std Deviation 48.5 H RDW Coeff of Kael 15.1 H Plt Count 247 MPV 9.7 Sodium 140 Potassium 3.8 Chloride 103 Carbon Dioxide 31.0 Anion Gap 6 BUN 44 H Creatinine 1.95 H Estim Creat Clear Calc 34.32 Est GFR (MDRD) Af Amer 43 L Est GFR (MDRD) Non-Af 36 L BUN/Creatinine Ratio 22.6 H Glucose 135 H Calcium 8.8 Assessment/Plan All Active Problems Renal failure (Acute) Urinary retention (Acute) GI bleed (Acute) Anemia (Acute) Delayed wound healing (Resolved) 74-year-old male with multiple medical problems and poor health he lives in a detention he is DNI DNR CC, he is got a catheter in place today I spoke to the patient regarding management options he is not interested in having any surgery, also he would be a high risk surgical candidate. For now we will get a recommend medical therapy Flomax and Proscar, Flomax 0.4 mg twice a day, Proscar 5 mg daily. After the medications have been implemented. Catheter could be removed at the detention for voiding trial. Call me with questions.
[2019-07-07] MEDS: Tamsulosin HCl 0.4 MG Capsule PO (08:09)
[2019-07-07 08:10] VITALS: BP 109/66; PULSE 70; RESP 18; TEMP 36.6; O2SAT 97
[2019-07-07] MEDS: Menthol/Lanolin/Calamine/Znox 113 GM Tube 1 APPLIC TOPICAL (08:10)
[2019-07-07] MEDS: Nystatin Powder 15gm Bottle 1 APPLIC TOPICAL (08:11)
[2019-07-07] MEDS: 0.9% Saline Lock 10 ML Syringe IV (09:24)
[2019-07-07] MEDS: Insulin Lispro 100 UNIT/ML INSULN.PEN SC ×2 (11:41→17:05)
[2019-07-07] MEDS: Ferrous Sulfate 325 MG Tablet PO ×2 (11:41→17:05)
[2019-07-07 11:46] VITALS: TEMP 36.5
[2019-07-07 12:21] LABS: Bedside Glucose 179 mg/dL (70-110)
--- NOTE | 2019-07-07 13:26 | PCM.TXEXTCAR ---
- Diet 07/05/19 11:37 Diet: Cardiac: Carb-Controlled Food consistency:: Regular Liquid Consistency:: Regular/Thin Diet Comments: low sodium - Routine Orders/Code Status Routine Lab Work: CBC - within 3 days, BMP - within 3 days - Wound(s) Bilateral shins Wound Type: scabs anterior shins base of rt great and 2nd toe Wound Type: Abrasion - Therapies Weight Bearing: Weight bearing as tolerated Physical Therapy: Eval and Treat Occupational Therapy: Eval and Treat Speech Therapy: Eval and Treat - Allergies/Procedures Done in Hospital Allergies/Adverse Reactions: Allergies clarithromycin [From Biaxin] Allergy (Verified 07/04/19 15:56) Unknown diclofenac [From Voltaren] Adverse Reaction (Verified 07/04/19 15:56) Nausea/Vom/Diarrhea Macrolide Antibiotics Adverse Reaction (Verified 07/04/19 15:56) Chest tightness ketolides Allergy (Uncoded 07/04/19 19:21) Unknown Procedures: None - Type of Care/Length of Stay Estimated LOS: Convalescent Care Less Than 30 days Type of Care Needed: Skilled Rehab Potential: Fair Prognosis: Fair - Additional Orders/Day of Discharge Additional Orders: Consider palliative care/hospice on admission back to [facility]. Remove lawson catheter on 07/11/19. Perform a voiding trial on Thursday07/11/19. Let urology, Dr. Hancock know if there are any questions. Repeat kidney function test within 3 days. Consider resuming Lisinopril when kidney function remains improved. Day of Discharge: 07/07/19 - Dietary and Speech Recommendations Dietitian Recommendations/Changes: Will change diet to carb-controlled/Cardiac; low sodium & monitor need for fluid restriction. Suggest consult to speech therapy for swallow eval given pt's history of dysphagia. - Follow Up Care Primary Care Physician: Filipe Simmons MD [Primary Care Provider] - Please follow up with your Primary Care Physician in: within 1-2 weeks Please Follow Up With: Rodri Hancock MD When: with questions if pt gets hematuria again or has urinary retention issues
--- NOTE | 2019-07-07 13:34 | PCM.DC.SUM ---
Discharge Date and Diagnosis Date of Admission: 07/04/19 Date of Discharge: 07/07/19 - Primary Discharge Diagnosis Active and Suspected Problems 1. Acute blood loss anemia 2. Hematuria, unknown etiology 3. KOSTAS on CKD stage 3 - Secondary Discharge Diagnosis Chronic Problems Iron deficiency anemia (Chronic) Dysphagia (Chronic) Chronic diastolic (congestive) heart failure (Chronic) Grade II diastolic dysfunction (Chronic) Pulmonary hypertension (Chronic) PA systolic is estimated to be 40-45 on ECHO done 02/04/2019 Mild aortic stenosis (Chronic) Benign prostatic hyperplasia (Chronic) Hyperlipidemia (Chronic) Hypertension (Chronic) Venous insufficiency (chronic) (peripheral) (Chronic) Type 2 diabetes mellitus with diabetic polyneuropathy (Chronic) Hospital Course and Treatment Imaging Results: Clinical Impression(s) from Imaging Studies Abdomen/Pelvis CT 07/04/19 15:35 IMPRESSION: Urinary retention with significant distention of the urinary bladder. There is associated mild bilateral hydronephrosis and hydroureter Electronically Signed: Juan Diego Solano DO at 16:50 EST Tel , Service support , Renal Ultrasound 07/05/19 12:25 IMPRESSION: Cysts of the kidneys. Electronically Signed: Иван Cabrera DO at 23:49 EST Tel [phone], Service support , Nephrology Urology Operations: None Procedures: - - Kidney, bladder ultrasound Summary of Care Provided: The patient is a 74 year old M with multiple cardiac comorbidities, resident in a care home who was brought in with worsening abdominal distention, leg edema and worsening renal failure with concerns for possible GI bleed. She was found to have a hemoglobin of 6.1. His stools were dark and tarry. Stool for occult blood was negative. CAT scan of the abdomen and pelvis showed a distended bladder with hydroureter and hydronephrosis. He had a Gomez catheter placed in about 3.5 L of urine was drained out. Admitting creatinine was 2.97, increased from 1.33 from previous. Received 1 unit of packed RBC. Nephrology and urology were consulted. Patient's creatinine gradually improved. It was felt that his acute kidney injury was related to obstructive uropathy. Over time, patient's hematuria seen in the initial urine bag improved to a light yellow urine. Was continued on an increased dose of Flomax. Patient remained lethargic throughout his stay. He was recommended at palliative care/hospice be consulted on discharge in the care home. Patient will need to follow-up with urology as needed if hematuria comes back. There was a plan from urology for Gomez catheter removal within a week of discharge and voiding trial. His CODE STATUS is a DNR CC Subjective: On the day of discharge, patient was seen and examined. He remains lethargic, lying in bed, denies any new complaints. Objective: Physical Exam: Gen: Appears weak, frail, not pale, not jaundiced, alert oriented x3 CVS:HS I +II, regular, no murmurs RESP: Diminished at lung bases GI: BS present and normal, nontender, no palpable organs EXT:Bilateral pedal edema +1 - Physical Exam Vitals/I&O's: Vital Signs Temp Pulse Resp BP Pulse Ox 97.7 F L 70 18 109/66 97 07/07/19 11:46 07/07/19 08:10 07/07/19 08:10 07/07/19 08:10 07/07/19 08:10 Oxygen Flow Rate (L/min) 2 Oxygen Delivery Method Room Air Weight: 121.2 kg Body Mass Index (BMI) 37.3 Finger Stick Blood Glucose 174 Intake and Output for Last 24 Hours 07/05/19 07/06/19 07/07/19 23:59 23:59 23:59 Intake Total 3100 / 3100 710 / 710 660 / 660 Output Total 6700 / 6700 4050 / 4050 1550 / 1550 Balance -3600 / -3600 -3340 / -3340 -890 / -890 Microbiology Past 72 Hours 07/04/19 16:20 Stool Stool Occult Blood (QUAN) - Final Laboratory Results 07/06/19 16:04: POC Glucose 196 H 07/06/19 22:12: POC Glucose 143 H 07/07/19 05:00: WBC 10.0, RBC 3.28 L, Hgb 9.0 L, Hct 28.4 L, MCV 86.6, MCH 27.4, MCHC 31.7 L, RDW Std Deviation 48.5 H, RDW Coeff of Kael 15.1 H, Plt Count 247, MPV 9.7 07/07/19 05:00: Sodium 140, Potassium 3.8, Chloride 103, Carbon Dioxide 31.0, Anion Gap 6, BUN 44 H, Creatinine 1.95 H, Estim Creat Clear Calc 34.32, Est GFR (MDRD) Af Amer 43 L, Est GFR (MDRD) Non-Af 36 L, BUN/Creatinine Ratio 22.6 H, Glucose 135 H, Calcium 8.8 07/07/19 06:26: POC Glucose 129 H 07/07/19 11:40: POC Glucose 179 H Current Medications Acetaminophen (Tylenol) 650 mg PO Q6H PRN PRN PRN Reason: Pain Score 1-10/Temp > 100.7 F Last Admin: 07/06/19 22:10 Dose: 650 mg Documented by: Calamine/Phenol (Calmoseptine Ointment) 1 applic TOPICAL BID [facility]; Protocol Last Admin: 07/07/19 08:10 Dose: 1 applicatio Documented by: Carvedilol (Coreg) 25 mg PO BID [facility] Last Admin: 07/07/19 08:10 Dose: Not Given Documented by: Dextrose (D50w Syringe) 0 gm IV X1 PRN; Protocol PRN Reason: Hypoglycemia Ferrous Sulfate (Ferrous Sulfate) 325 mg PO 1200,1700 [facility] Last Admin: 07/07/19 11:41 Dose: 325 mg Documented by: Glucagon () 1 mg IM .X1 PRN PRN Reason: Hypoglycemia Pantoprazole Sodium 40 mg/ (Sodium Chloride) 110 mls @ 330 mls/hr IV Q12 ROB Last Infusion: 07/07/19 09:43 Dose: Infused Documented by: Sodium Chloride () 250 mls @ 15 mls/hr IV .[id number] PRN PRN Reason: Saline Flush Last Infusion: 07/06/19 23:10 Dose: 0 mls/hr Documented by: Insulin Human Lispro (Humalog Kwikpen (Bkc)) 0 unit SC ACHS [facility]; Protocol Last Admin: 07/07/19 11:41 Dose: 1 u Documented by: Melatonin (Melatonin) 3 mg PO QHS PRN PRN PRN Reason: INSOMNIA Last Admin: 07/06/19 22:10 Dose: 3 mg Documented by: Nystatin (Mycostatin Powder) 1 applic TOPICAL BID [facility]; Protocol Last Admin: 07/07/19 08:11 Dose: 1 applicatio Documented by: Ondansetron HCl (Zofran) 4 mg IV Q8H PRN PRN PRN Reason: NAUSEA/VOMITING Pramipexole Dihydrochloride (Mirapex) 0.125 mg PO QHS [facility] Last Admin: 07/06/19 22:11 Dose: 0.125 mg Documented by: Sodium Chloride () 10 - 40 ml IV UD PRN PRN Reason: SALINE FLUSH Last Admin: 07/07/19 09:24 Dose: 10 ml Documented by: Spironolactone (Aldactone) 25 mg PO DAILY [facility] Last Admin: 07/07/19 08:10 Dose: Not Given Documented by: Tamsulosin HCl (Flomax) 0.4 mg PO BID [facility] Last Admin: 07/07/19 08:09 Dose: 0.4 mg Documented by: Discharge Diet: Low fat/ Low Cholesterol, 2000 mg Sodium Diet Discharge Activity: Return to Normal Activity Home Medications: Medications to take at Discharge Carvedilol [Coreg (Beta Sarah)] 25 mg PO BID 02/02/19 Furosemide [Lasix] 40 mg PO BID@0800,1200 02/02/19 Glipizide [Glipizide ER] 10 mg PO DAILY 02/02/19 Insulin Lispro [Humalog] See Protocol SQ ACHS 02/02/19 Spironolactone [Aldactone] 25 mg PO DAILY 02/02/19 Ascorbic Acid [Vitamin C] 500 mg PO BID 07/04/19 Aspirin [Aspirin, Baby] 81 mg PO DAILY@0800 07/04/19 Escitalopram Oxalate [Lexapro] 10 mg PO DAILY 07/04/19 Ferrous Sulfate 325 mg PO BID 07/04/19 Pantoprazole Sodium [Protonix] 20 mg PO DAILY 07/04/19 Pramipexole Di-HCl [Mirapex] 0.125 mg PO QHS 07/04/19 Acetaminophen [Tylenol Tablet] 650 mg PO Q6H PRN PRN tab 07/07/19 Finasteride [Proscar] 5 mg PO DAILY 30 Days #30 tab 07/07/19 Menthol/Lanolin/Calamine/Znox [Calmoseptine Ointment] 1 applic TOPICAL BID tube 07/07/19 Nystatin Powder [Mycostatin Powder] 1 applic TOPICAL BID bottle 07/07/19 Sennosides/Docusate Sodium [Senna Plus 8.6-50 mg Tablet] 2 tab PO QHS PRN 30 Days #30 tab 07/07/19 Tamsulosin HCl [Flomax] 0.4 mg PO BID 30 Days #0 cap 07/07/19 Following Prescrptions Were Given to Patient: Finasteride [Proscar] 5 mg PO DAILY 30 Days #30 tab Primary Care Physician: Filipe Simmons MD [Primary Care Provider] - Please follow up with your Primary Care Physician in: within 1-2 weeks Please Follow Up With: Rodri Hancock MD When: with questions if pt gets hematuria again or has urinary retention issues Disposition: [facility] facility Minutes spent on discharge:: 40 Patient Condition:: Stable Medical Necessity - Tobacco Use Smoking Status: Former smoker Tobacco Use: Cigars, Pipe Meaningful Use Info Meaningful Use Diagnoses (Choose all that apply): None applicable Code Visit Inpatient E&M: 98564 Disch Hosp
[2019-07-07 14:40] VITALS: BP 133/70; PULSE 74; RESP 16; TEMP 36.5; O2SAT 96
--- NOTE | 2019-07-07 14:51 | CASEMGMT ---
Patient is ready for discharge today. SUMI notified Michaelle at [facility]. SW faxed orders to [facility]. [facility] had asked SW to arrange transport for later around 630p if possible due to numerous admissions. SUMI told her this would not be a problem. SW spoke with patient and he was okay with leaving at 630p. SUMI arranged transport for 630 via cot. SUMI notified RN, patient, his son Nnamdi, secretary bookkeeper, and Michaelle at [facility]. Plan: d/c back to [facility] under intermediate level of care. [facility] transported via cot. Jeanette HODGES CORRECTIONAL GUARD
--- NOTE | 2019-07-07 15:06 | PHA.DC.MR ---
Pharmacy Service has performed discharge medication reconciliation for this patient upon transfer to [facility]. The patient's discharge medication list was reviewed for discrepancies and discrepancies were resolved. Home Medications Carvedilol [Coreg (Beta Sarah)] 25 mg PO BID 02/02/19 Furosemide [Lasix] 40 mg PO BID@0800,1200 02/02/19 Glipizide [Glipizide ER] 10 mg PO DAILY 02/02/19 Insulin Lispro [Humalog] See Protocol SQ ACHS 02/02/19 Spironolactone [Aldactone] 25 mg PO DAILY 02/02/19 Ascorbic Acid [Vitamin C] 500 mg PO BID 07/04/19 Aspirin [Aspirin, Baby] 81 mg PO DAILY@0800 07/04/19 Escitalopram Oxalate [Lexapro] 10 mg PO DAILY 07/04/19 Ferrous Sulfate 325 mg PO BID 07/04/19 Pantoprazole Sodium [Protonix] 20 mg PO DAILY 07/04/19 Pramipexole Di-HCl [Mirapex] 0.125 mg PO QHS 07/04/19 Acetaminophen [Tylenol Tablet] 650 mg PO Q6H PRN PRN tab 07/07/19 Finasteride [Proscar] 5 mg PO DAILY 30 Days #30 tab 07/07/19 Menthol/Lanolin/Calamine/Znox [Calmoseptine Ointment] 1 applic TOPICAL BID tube 07/07/19 Nystatin Powder [Mycostatin Powder] 1 applic TOPICAL BID bottle 07/07/19 Sennosides/Docusate Sodium [Senna Plus 8.6-50 mg Tablet] 2 tab PO QHS PRN 30 Days #30 tab 07/07/19 Tamsulosin HCl [Flomax] 0.4 mg PO BID 30 Days #0 cap 07/07/19
--- NOTE | 2019-07-07 15:39 | PN.RENAL_ITS ---
Patient Problems: Active and Suspected Problems Renal failure (Acute) Urinary retention (Acute) GI bleed (Acute) Anemia (Acute) Subjective: Renal function continues to improve. Gross hematuria resolved. Continue Gomez to CD. - Physical Exam Vitals/I&O's: Vital Signs Temp Pulse Resp BP Pulse Ox 97.7 F L 74 16 133/70 H 96 07/07/19 14:40 07/07/19 14:40 07/07/19 14:40 07/07/19 14:40 07/07/19 14:40 Oxygen Flow Rate (L/min) 2 Oxygen Delivery Method Room Air Weight: 121.2 kg Body Mass Index (BMI) 37.3 Finger Stick Blood Glucose 174 Intake and Output for Last 24 Hours 07/05/19 07/06/19 07/07/19 23:59 23:59 23:59 Intake Total 3100 / 3100 710 / 710 660 / 660 Output Total 6700 / 6700 4050 / 4050 1550 / 1550 Balance -3600 / -3600 -3340 / -3340 -890 / -890 General: Alert, Oriented x3, Cooperative, - - Slow to respond Lungs: Clear to auscultation Extremities: No edema Microbiology Past 72 Hours 07/04/19 16:20 Stool Stool Occult Blood (QUAN) - Final Laboratory Results 07/06/19 16:04: POC Glucose 196 H 07/06/19 22:12: POC Glucose 143 H 07/07/19 05:00: WBC 10.0, RBC 3.28 L, Hgb 9.0 L, Hct 28.4 L, MCV 86.6, MCH 27.4, MCHC 31.7 L, RDW Std Deviation 48.5 H, RDW Coeff of Kael 15.1 H, Plt Count 247, MPV 9.7 07/07/19 05:00: Sodium 140, Potassium 3.8, Chloride 103, Carbon Dioxide 31.0, Anion Gap 6, BUN 44 H, Creatinine 1.95 H, Estim Creat Clear Calc 34.32, Est GFR (MDRD) Af Amer 43 L, Est GFR (MDRD) Non-Af 36 L, BUN/Creatinine Ratio 22.6 H, Glucose 135 H, Calcium 8.8 07/07/19 06:26: POC Glucose 129 H 07/07/19 11:40: POC Glucose 179 H Current Medications Acetaminophen (Tylenol) 650 mg PO Q6H PRN PRN PRN Reason: Pain Score 1-10/Temp > 100.7 F Last Admin: 07/06/19 22:10 Dose: 650 mg Documented by: Calamine/Phenol (Calmoseptine Ointment) 1 applic TOPICAL BID [facility]; Protocol Last Admin: 07/07/19 08:10 Dose: 1 applicatio Documented by: Carvedilol (Coreg) 25 mg PO BID [facility] Last Admin: 07/07/19 08:10 Dose: Not Given Documented by: Dextrose (D50w Syringe) 0 gm IV X1 PRN; Protocol PRN Reason: Hypoglycemia Ferrous Sulfate (Ferrous Sulfate) 325 mg PO 1200,1700 [facility] Last Admin: 07/07/19 11:41 Dose: 325 mg Documented by: Glucagon () 1 mg IM .X1 PRN PRN Reason: Hypoglycemia Pantoprazole Sodium 40 mg/ (Sodium Chloride) 110 mls @ 330 mls/hr IV Q12 [facility] Last Infusion: 07/07/19 09:43 Dose: Infused Documented by: Sodium Chloride () 250 mls @ 15 mls/hr IV .[id number] PRN PRN Reason: Saline Flush Last Infusion: 07/06/19 23:10 Dose: 0 mls/hr Documented by: Insulin Human Lispro (Humalog Kwikpen (Bkc)) 0 unit SC ACHS [facility]; Protocol Last Admin: 07/07/19 11:41 Dose: 1 u Documented by: Melatonin (Melatonin) 3 mg PO QHS PRN PRN PRN Reason: INSOMNIA Last Admin: 07/06/19 22:10 Dose: 3 mg Documented by: Nystatin (Mycostatin Powder) 1 applic TOPICAL BID [facility]; Protocol Last Admin: 07/07/19 08:11 Dose: 1 applicatio Documented by: Ondansetron HCl (Zofran) 4 mg IV Q8H PRN PRN PRN Reason: NAUSEA/VOMITING Pramipexole Dihydrochloride (Mirapex) 0.125 mg PO QHS [facility] Last Admin: 07/06/19 22:11 Dose: 0.125 mg Documented by: Sodium Chloride () 10 - 40 ml IV UD PRN PRN Reason: SALINE FLUSH Last Admin: 07/07/19 09:24 Dose: 10 ml Documented by: Spironolactone (Aldactone) 25 mg PO DAILY [facility] Last Admin: 07/07/19 08:10 Dose: Not Given Documented by: Tamsulosin HCl (Flomax) 0.4 mg PO BID [facility] Last Admin: 07/07/19 08:09 Dose: 0.4 mg Documented by: Medical Necessity - Tobacco Use Smoking Status: Former smoker Tobacco Use: Cigars, Pipe Assessment/Plan All Active Problems Renal failure (Acute) Urinary retention (Acute) GI bleed (Acute) Anemia (Acute) Delayed wound healing (Resolved) 1. Acute kidney injury due to obstructive uropathy. Creatinine 2.9 improved to 1.9 today. Continue Gomez catheter to CD. Consider evaluation 2. History of stroke with muscle weakness, chronic debilitation. assistance with ADLs. ECF resident. 3. Morbid obesity 4. Type 2 diabetes mellitus with neuropathy blood sugar stable. 5. GIB hgb stable
[2019-07-07 17:20] LABS: Bedside Glucose 191 mg/dL (70-110)
--- NOTE | 2019-07-07 18:21 | NURSING ---
report called to Krystina at [facility] by JERICHO Talbot with this hammer adjuster. pt to be transported via cot at 1830
== END 2019-07-07 19:35 | disposition intermediate care facility (04) | DRG 683 ==
LOC: ED 17:38 → PCU 18:24
PROVIDERS: Internal Medicine Nephrology; Nurse Practitioner Family; Admitting Provider Family Medicine; Emergency Provider Emergency Medicine; PCP Family Medicine; Referring Provider Family Medicine; Visit Provider Internal Medicine
DX: N17.9 Acute kidney failure, unspecified (principal); I50.32 Chronic diastolic (congestive) heart failure; K92.2 Gastrointestinal hemorrhage, unspecified; D62 Acute posthemorrhagic anemia; N13.8 Other obstructive and reflux uropathy; N13.30 Unspecified hydronephrosis; I27.20 Pulmonary hypertension, unspecified; N40.1 Benign prostatic hyperplasia with lower urinary tract symptoms; R33.8 Other retention of urine; Z66 Do not resuscitate; E66.01 Morbid (severe) obesity due to excess calories; Z68.37 Body mass index [BMI] 37.0-37.9, adult; G47.30 Sleep apnea, unspecified; I69.331 Monoplegia of upper limb following cerebral infarction affecting right dominant side; E78.5 Hyperlipidemia, unspecified; I87.2 Venous insufficiency (chronic) (peripheral); E11.42 Type 2 diabetes mellitus with diabetic polyneuropathy; I11.0 Hypertensive heart disease with heart failure; R13.10 Dysphagia, unspecified; I35.0 Nonrheumatic aortic (valve) stenosis; R31.0 Gross hematuria; Z87.891 Personal history of nicotine dependence; Z79.4 Long term (current) use of insulin
CPT/HCPCS: 36415; 51702; 74176; 76770; 80048; 80069; 81001; 82274; 82962; 83880; 85014; 85018; 85025; 85027; 86850; 86900; 86901; 86920; 86922; 93005; 97163; 99285; J7040; J7050; P9016; A4216; J1940